=== PATIENT | female | born 1955 | race Caucasian/White ===

== ENCOUNTER 2016-08-20 20:50 | Inpatient (IN) | payer MEDICAID ==
[~2016-08-20] VITALS: Ht 165.1 cm; Wt 70.3 kg
--- NOTE | ~2016-08-20 | PRO ---
PATIENT:ARPITA MORGAN MEDICAL RECORD: [id number] : 53 LOCATION:[id number] ADMISSION DATE: 08/20/16 PROCEDURE PERFORMED BY: MEENA REESE MD DATE OF PROCEDURE: 08/24/2016 This is a summary of progress notes from 08/22/2016, 08/23/2016 and 08/24/2016. The patient has a right-sided pneumothorax. I have placed her water seal. There has been no significant increase in crepitus involving the right chest wall. No increasing shortness of breath. She is still wearing her oxygen. I have reviewed her chest x-ray. Today's chest x-ray, I think looks a little better than ones previously. There is a tiny apical pneumothorax. There is no air leak. The patient is not short of breath. Only, there is a tiny amount of subcutaneous crepitus on her chest examination. The subcutaneous emphysema persists on her chest x-ray, however. Palpation along the right costal margin aggravates. Nothing alleviates. Symptoms are mild. This is a progress note addendum. For the typed portion of the progress note, please see the chart. This included the past medical and surgical history, allergies, social history as well as current medications. REVIEW OF SYSTEMS: Negative for nausea, vomiting, fever, chills. Mild dyspnea. Review of systems is negative other than as is described above. PHYSICAL EXAMINATION: GENERAL: The patient does not appear acutely ill. She does not appear chronically ill. VITAL SIGNS: Reviewed. HEAD: External ears appear normal. EYES: Extraocular movements are intact. NECK: Trachea is midline. CHEST: No intercostal retractions. PULMONARY: Mildly labored. No stridor. EXTREMITIES: No peripheral cyanosis. INTEGUMENT: No rash, no ulcerations. PSYCHIATRIC: Normal affect. No psychosis. NEUROLOGIC: Nonfocal, no lethargy. The patient answers questions appropriately. BACK: Mild thoracic kyphosis. LYMPHATIC: No lymphangitic streaking of the exposed extremities. IMPRESSION: Slow improvement in her chest x-ray and physical examination over the course of the last 3 days. PLAN: I will continue her water seal. I will get some supplies to the bedside for chest tube removal, hopefully tomorrow. I discussed this case with Dr. Maximo De La Garza by phone tonight. TRANSINT:[id number] Voice Confirmation ID: [id number] DOCUMENT ID: [id number] PROCEDURE NOTE [id number] ARPITA MORGAN ROBERT MD CC: [id number] DICTATION DATE: 08/24/161754 DAIRY FARMWORKER: 08/25/16 0329 ADM IN [place] [id number] [place] [id number]
--- NOTE | ~2016-08-20 | OP ---
PATIENT NAME: ARPITA MORGAN MEDICAL RECORD: [id number] :53 LOCATION:[id number] ADMISSION DATE:08/20/16 SURGEON: ESPINOZA KAY MD DATE OF OPERATION: 08/21/2016 PREOPERATIVE DIAGNOSES: 1. Spontaneous right pneumothorax. 2. Tobacco dependence syndrome. POSTOPERATIVE DIAGNOSES: 1. Spontaneous right pneumothorax. 2. Tobacco dependence syndrome. PROCEDURE: A 20-Omani right chest tube placement. SURGEON: Espinoza Kay MD. REPORT OF PROCEDURE: The patient's right chest was prepped and draped in sterile fashion. A total of 5 mL of 1% lidocaine was infused into the subcutaneous tissue on the right lateral chest. A skin incision was made with an 11-blade in subcutaneous tract was formed using my finger. We got up to the patient's ribs. I was unable to determine which rib we were at due to the large body habitus, but had to be around the seventh to eighth intercostal space. A 20-Omani chest tube with introducer was placed between the ribs into the chest cavity and there was a quick return of air. The chest tube was then sutured into place with 0 silk and dressed appropriately. This chest tube was then placed to suction. COMPLICATIONS: None. CONDITION: Stable. ANESTHESIA: Local. BLOOD LOSS: Minimal. Procedure done at the bedside. TRANSINT:[id number] Voice Confirmation ID: [id number] DOCUMENT ID: [id number] ESPINOZA KAY MD CC: [id number] DICTATION DATE: 08/21/16 142 CARTOGRAPHIC ENGINEER: 08/22/16 0143 ADM IN [facility] [address] [place] [address]
[2016-08-20 22:26] LABS: BASOPHILS 0.2 % (0-2); EOSINOPHILS 1.4 % (0-7); HEMATOCRIT 41.9 % (36.0-48.0); HEMOGLOBIN 14.6 g/dL (12-16); IMMATURE GRANULOCYTES 0.3 % (0-5); LYMPHOCYTES 25.6 % (15-50); MCH 32.2 pg (26.0-34.0); MCHC 34.8 g/dL (31.0-37.0); MCV 92.3 fL (80.0-100.0); MEAN PLATELET VOLUME 9.5 fL (7.4-10.4); MONOCYTES 5.3 % (2-11); NEUTROPHILS 67.2 % (40-80); PLATELET COUNT 268 10x3/uL (130-400); RBC 4.54 10x6/uL (4.00-5.40); RDW 12.6 % (11.5-14.5); WBC 11.8 10x3/uL (4.8-10.8)
[2016-08-20 22:39] LABS: ALBUMIN 3.8 g/dL (3.4-5.0); ALKALINE PHOSPHATASE 103 U/L (46-116); ALT (SGPT) 22 U/L (10-68); CALC OSMOLALITY 267 mosm/kg (275-300); CALCIUM 8.8 mg/dL (8.5-10.1); CARBON DIOXIDE 29.7 mmol/L (21.0-32.0); CHLORIDE - SERUM 96 mmol/L (98-107); CREATININE - SERUM 1.1 mg/dL (0.6-1.3); GLUCOSE 146 mg/dL (74-106); PRO BNP 341 pg/mL (0-125); PROTEIN - SERUM 7.1 g/dL (6.4-8.2); SODIUM 134 mmol/L (136-145); UREA NITROGEN 3 mg/dL (7-18); eGFR NON AFRICAN AMERICAN 53 mL/min (90-120)
[2016-08-20 22:46] LABS: POTASSIUM - SERUM 2.1 mmol/L (3.5-5.1); TROPONIN-I < 0.017 ng/mL (0.000-0.060)
[2016-08-21] MEDS ORDERED: ASPIRIN325 MG PO (01:35)
[2016-08-21 01:36] VITALS: BP 134/70; BMI 25.8
[2016-08-21 04:00] VITALS: BP 134/70
--- NOTE | 2016-08-21 07:15 | NUR ---
REPORT RECEIVED FROM DIRECTOR GLOBAL INTELLIGENCE NURSE. CALL LIGHT IN REACH.
--- NOTE | 2016-08-21 07:15 | NUR ---
REPORT RECEIVED FROM CONTACT LENS POLISHER NURSE. CALL LIGHT IN REACH.
[2016-08-21 08:13] VITALS: BP 138/65
--- NOTE | 2016-08-21 09:00 | NUR ---
PATIENT IS AWAKE, ALERT AND ORIENTED X'S 4. SITTING UP IN THE BED. DENIES NEEDS AT THIS TIME.
--- NOTE | 2016-08-21 09:12 | NUR ---
ASSESSMENT COMPLETED. AM MEDS ADMINISTERED. DR. KAY IN ROOM. CALL LIGHT IN REACH. WILL CONTINUE WITH PLAN OF CARE.
--- NOTE | 2016-08-21 09:35 | NUR ---
SCDs APPLIED TO BLE PER INSPECTION CLERK.
--- NOTE | 2016-08-21 10:37 | NUR ---
RIGHT CHEST TUBE IN PER DR. KAY. ANDRES IVP. RADIOLOGY IN ROOM TO MICHAEL XRAY
[2016-08-21 11:58] VITALS: BP 122/56
[2016-08-21 12:44] VITALS: Ht 165.1 cm; Wt 70.3 kg
--- NOTE | 2016-08-21 13:16 | NUR ---
Patient Name: ARPITA HAYWARD Admission Status: ER Accout number: [id number] Admission Date: 08-20-2016 : 1955 Admission Diagnosis:PNEUMOTHORAX, UNSPECIFIED Attending: CARMEN Current LOS: 1 Anticipated DC Date: Planned Disposition: Home Primary Insurance: [employer] Discharge Planning Comments: CM met with patient and (Luis M) [phone] to assess discharge planning/needs. Patient states discharge plan is to return home with her Luis M. States home environment is safe. States she has a ramp with rail. She denies any DME needs and states she is independent with her ADL's. At this time she denies any needs for HH. CM will continue to follow and assist as needed with discharge planning/needs. PCP: Wilfred Pharmacy: [facility] Luis M Hayward (Spouse) [phone] Dry Wall Sprayer: Kimberly Stoll * Is the patient Alert and Oriented? Yes 0 * How many steps to enter\exit or inside your home? 0 0 * PCP Wilfred 0 * Pharmacy [facility] 0 * Preadmission Environment Home with Family 0 * ADLs Independent 0 * Equipment None 0 * List name and contact numbers for known caregivers / representatives who currently or will assist patient after discharge: Luis M Hayward [phone] * Community resources currently utilized None 0 * Additional services required to return to the preadmission environment? No 0 * Can the patient safely return to the preadmission environment? Yes 0 * Has this patient been hospitalized within the prior 30 days at any hospital? No 0 Grand Total: 0
--- NOTE | 2016-08-21 15:23 | NUR ---
PAGED TO NOTIFY HIM OF POTASSIUM LEVEL
[2016-08-21 16:10] VITALS: BP 121/68
--- NOTE | 2016-08-21 17:00 | NUR ---
ASSUMED CARE OF PATIENT. AAO TIMES 4 SITTING UP ON BED, CHEST TUBE RT. LAT CHEST TO 20 CM SUCTION WITH NO APPARANT AIR LEAKS NOTED. DENIES NEEDS OR PAIN. BED LOW CL IN REACH. WILL CPOC.
--- NOTE | 2016-08-21 19:15 | NUR ---
ASSESSMENT COMPLETED, CHEST TUBE TO R SIDE AT 20CM, SCD'S IN PLACE, IV TO L FA INFUSING WITH EASE, NO DISTRESS NOTED, DENIES NEEDS, SR'S UP X2, CL IN REACH, WILL MONITOR
[2016-08-21 20:00] VITALS: BP 122/51
--- NOTE | 2016-08-21 20:08 | NUR ---
TORADOL GIVEN PER MAR, RONAL WELL, DENIES NEEDS, CL IN REACH
--- NOTE | 2016-08-21 22:52 | NUR ---
LYING IN BED TALKING ON PHONE, NO NEEDS NOTED, FALL PRECAUTIONS IN PLACE, CL IN REACH
[2016-08-22] VITALS: BP 114/66
[2016-08-22 04:00] VITALS: BP 116/67
[2016-08-22 05:39] LABS: BASOPHILS 0.1 % (0-2); EOSINOPHILS 1.6 % (0-7); HEMATOCRIT 39.8 % (36.0-48.0); HEMOGLOBIN 13.5 g/dL (12-16); IMMATURE GRANULOCYTES 0.2 % (0-5); LYMPHOCYTES 24.6 % (15-50); MCH 31.9 pg (26.0-34.0); MCHC 33.9 g/dL (31.0-37.0); MCV 94.1 fL (80.0-100.0); MEAN PLATELET VOLUME 9.9 fL (7.4-10.4); MONOCYTES 4.4 % (2-11); NEUTROPHILS 69.1 % (40-80); PLATELET COUNT 232 10x3/uL (130-400); RBC 4.23 10x6/uL (4.00-5.40); RDW 12.7 % (11.5-14.5); WBC 9.9 10x3/uL (4.8-10.8)
[2016-08-22 06:09] LABS: ANION GAP 11.6 mmol/L (8-16); CALCIUM 8.5 mg/dL (8.5-10.1); CARBON DIOXIDE 27.3 mmol/L (21.0-32.0); CREATININE - SERUM 1.1 mg/dL (0.6-1.3)
[2016-08-22 06:11] LABS: POTASSIUM - SERUM 2.9 mmol/L (3.5-5.1)
--- NOTE | 2016-08-22 07:30 | NUR ---
AWAKE AND ALERT. ORIENTED X3. NO C/O AT THIS TIME. LUNGS ARE CLEAR EXCEPT INSPIRATORY WHEEZES NOTED IN RIGHT UPPER LOBE AT THIS TIME. CHEST TUBE TO RIGHT CHEST IS PATENT WITH SCANT SEROUS DRAINAGE NOTED. SL TO LEFT FOREARM PATEENT WITHOUT REDNESS AT ISNERTION SITE. SKIN INTACT WITHOUT REDNESS EXCEPT INSERTION SITE FOR CT AND OLD SITE TO RIGHT CLAVICAL AREA WHICH HAS A DRY INTACT DRESSING IN PLACE.
[2016-08-22 08:14] VITALS: BP 126/69
--- NOTE | 2016-08-22 11:00 | NUR ---
UP TO SINK PERFORMING ADL'S PER SELF. LINENS CHANGED PER STAFF.
[2016-08-22 12:05] VITALS: BP 129/64
--- NOTE | 2016-08-22 15:35 | NUR ---
RESTING QUIETLY IN BED WITH EYES CLOSED. DENIES NEEDS.
[2016-08-22 15:57] VITALS: BP 151/64
--- NOTE | 2016-08-22 18:11 | NUR ---
REPORTS NO FURTHER C/O NAUSEA AFTER ZOFRAN GIVEN. ATE ALMOST HALF OF SUPPER. DENIES NEEDS. NO CHANGES NOTED. VERY LITTLE OUTPUT FROM CT TODAY.
--- NOTE | 2016-08-22 19:40 | NUR ---
PT SITTING UP IN CHAIR, ASSESSMENT COMPLETED, CHEST TUBE CANISTER BELOW INSERTION LEVEL, NC IN PLACE, NO ACUTE DISTRESS NOTED, DENIES NEEDS AT THIS TIME, CL IN REACH, WILL MONITOR
[2016-08-22 20:00] VITALS: BP 140/64
--- NOTE | 2016-08-22 20:41 | NUR ---
TORADOL GIVEN PER MAR, RONAL WELL, DENIES NEEDS, CL IN REACH
--- NOTE | 2016-08-22 21:50 | NUR ---
PT STILL UP IN CHAIR, DENIES NEEDS, CL IN REACH
--- NOTE | 2016-08-22 23:31 | NUR ---
AMBULATING IN [place]DO, NO DISTRESS NOTED, DENIES NEEDS, WILL MONITOR
[2016-08-23] VITALS: BP 128/66
[2016-08-23 04:00] VITALS: BP 118/71
[2016-08-23 07:47] LABS: BASOPHILS 0.1 % (0-2); EOSINOPHILS 2.8 % (0-7); HEMATOCRIT 35.2 % (36.0-48.0); HEMOGLOBIN 12.5 g/dL (12-16); IMMATURE GRANULOCYTES 0.1 % (0-5); LYMPHOCYTES 29.2 % (15-50); MCH 32.4 pg (26.0-34.0); MCHC 35.5 g/dL (31.0-37.0); MCV 91.2 fL (80.0-100.0); MEAN PLATELET VOLUME 9.3 fL (7.4-10.4); MONOCYTES 6.6 % (2-11); NEUTROPHILS 61.2 % (40-80); PLATELET COUNT 181 10x3/uL (130-400); RBC 3.86 10x6/uL (4.00-5.40); RDW 12.4 % (11.5-14.5); WBC 7.1 10x3/uL (4.8-10.8)
--- NOTE | 2016-08-23 07:53 | NUR ---
AWAKE AND ALERT. ORIENTED X3. NO C/O THIS AM. LUNGS ARE CLEAR BUT DIMINISHED ON RIGHT SIDE. DRESSING TO CHEST TUBE ON RIGHT IS DRY AND INTACT. CHEST TUBE IS PATENT WITH SEROUS DRAINAGE NOTED. SL TO LEFT WRIST AREA PATENT WTIHOUT REDNESS AT INSERTION SITE. DENIES NEEDS.
[2016-08-23 08:01] LABS: CALCIUM 8.1 mg/dL (8.5-10.1); CARBON DIOXIDE 29.8 mmol/L (21.0-32.0)
[2016-08-23 08:03] LABS: POTASSIUM - SERUM 2.8 mmol/L (3.5-5.1)
[2016-08-23 09:29] VITALS: BP 127/66
--- NOTE | 2016-08-23 10:15 | NUR ---
C/O SOME NAUSEA WITH POTASSIUM UP. GIVEN 4MG ZOFRAN SLOW IVP FOR SAME. WILL MONITOR.
[2016-08-23 12:46] VITALS: BP 123/62
--- NOTE | 2016-08-23 15:30 | NUR ---
IV TO LEFT FOREARM RED. C/O PAIN WITH POTASSIUM INFUSION. RESITED TO LEFT FOREARM AFTER ONE ATTEMPT WITH 22G. OLD IV D/C WITH CATHETER INTACT. WARM MOIST HEAT APPLIED TO AREA.
[2016-08-23 16:29] VITALS: BP 118/61
--- NOTE | 2016-08-23 18:10 | NUR ---
ATE ABOUT HALF OF SUPPER TRAY BUT HAD FOOD FROM OUTSIDE IN ROOM. DENIES NEEDS. NO CHANGES NOTED
[2016-08-23 19:20] VITALS: BP 134/63
--- NOTE | 2016-08-23 19:20 | NUR ---
PT SITTING UP IN RECLINER, CHEST TUBE DRAINING TO GRAVITY, ASSESSMENT COMPLETED, NO ACUTE DISTRESS NOTED, DENIES NEEDS AT THIS TIME, CL IN REACH, WILL MONITOR
--- NOTE | 2016-08-23 20:39 | NUR ---
TORADOL GIVEN PER MAR, RONAL WELL, DENIES OTHER NEEDS, CL IN REACH
--- NOTE | 2016-08-23 21:50 | NUR ---
AMBULATING IN SEG[place]DO, NO DISTRESS NOTED, REMINED TO KEEP CANISTER BELOW INSERTION SITE, UNDERSTANDING VOICED
--- NOTE | 2016-08-23 23:42 | NUR ---
RESTING WITH EYES CLOSED, NO DISTRESS NOTED, SR UP, CL IN REACH
--- NOTE | 2016-08-24 01:20 | NUR ---
CONTINUES TO REST WITH EYES CLOSED, NO DISTRESS NOTED, CL IN REACH
[2016-08-24 06:20] VITALS: BP 110/59
--- NOTE | 2016-08-24 07:10 | NUR ---
PT REC'D FROM [facility]. RESTING IN BED WITH LAB AT [facility] DRAWING AM LABS. AAOX4. CHEST TUBE TO GRAVITY WITH APPROXIMATELY 35 CC'S OF SEROSANGUINOUS DRAINAGE. INSERTION SITE OF CT FREE OF REDNESS AND SWELLING AND DRESSING CDI. PIV TO L FA FREE OF REDNESS AND SWELLING. BED LOW, CALL LIGHT IN REACH, DENIES NEEDS. CPOC.
[2016-08-24 08:04] LABS: BASOPHILS 0.1 % (0-2); EOSINOPHILS 3.3 % (0-7); HEMATOCRIT 37.9 % (36.0-48.0); IMMATURE GRANULOCYTES 0.1 % (0-5); LYMPHOCYTES 23.3 % (15-50); MCH 31.9 pg (26.0-34.0); MCHC 34.3 g/dL (31.0-37.0); MCV 92.9 fL (80.0-100.0); MEAN PLATELET VOLUME 9.5 fL (7.4-10.4); MONOCYTES 6.4 % (2-11); NEUTROPHILS 66.8 % (40-80); RBC 4.08 10x6/uL (4.00-5.40); RDW 12.5 % (11.5-14.5); WBC 7.5 10x3/uL (4.8-10.8)
[2016-08-24 08:15] LABS: PLATELET COUNT 221 10x3/uL (130-400)
[2016-08-24 08:26] LABS: ALBUMIN 3.2 g/dL (3.4-5.0); ANION GAP 11.1 mmol/L (8-16); BILIRUBIN - TOTAL 0.44 mg/dL (0.2-1.3); CALCIUM 8.7 mg/dL (8.5-10.1); CARBON DIOXIDE 29.4 mmol/L (21.0-32.0); PROTEIN - SERUM 6.2 g/dL (6.4-8.2)
[2016-08-24 08:29] LABS: POTASSIUM - SERUM 3.5 mmol/L (3.5-5.1)
--- NOTE | 2016-08-24 08:50 | NUR ---
MORNING MEDS PASSED. AT THIS TIME. PO POTASSIUM GIVEN PER 3.5 POTASSIUM LEVEL. BED LOW, CALL LIGHT IN REACH, DENIES NEEDS. CPOC.
[2016-08-24 10:15] VITALS: BP 130/61
[2016-08-24 12:54] VITALS: BP 128/60
--- NOTE | 2016-08-24 13:08 | NUR ---
ALERTED BY DARIANA MINER, THAT PT WAS HAVING A NOSE BLEED. WHEN I GOT THERE THE BLEEDING HAD STOPPED COMPLETELY AND PT HAD ALREADY CLEANED HERSELF UP. THERE WAS A SMALL AMOUNT OF TISSUES IN TRASH CAN WITH A MILD AMOUNT OF BLOOD ON IT. PT DOES STATE, "SOMETIMES I LIKE WHEN IT HAPPENS BECAUSE IT CLEARS ME OUT AND OPENS EVERYTHING UP SO I CAN BREATHE BETTER." SITTING UP ON SIDE OF BED AT THIS TIME. BED LOW, CALL LIGHT IN REACH, DENIES NEEDS. CPOC.
[2016-08-24 16:53] VITALS: BP 120/66
--- NOTE | 2016-08-24 19:20 | NUR ---
RECIEVED SHIFT REPORT. PT IS LYING IN BED. ALERT AND ORIENTED AND ABLE TO VERBALIZE NEEDS. IV IS PATENT AND SALINE LOC AT THIS TIME. PT IS AMBULATORY BUT WAS INSTRUCTED TO CALL FOR ANY ASSISTANCE NEEDED. O2 @ 2 PER NASAL CANNULA PRN. CHEST TUBE NOTED TO RIGHT SIDE C/D/I. PT STATES PAIN IS 5/10. PT REFUSES SCD'S AT THIS TIME. NO NEEDS ARE VERBALIZED AT THIS TIME. WILL CONTINUE TO MONITOR. SIDE RAILS ARE UP X 2. BED IS IN LOWEST POSITION. CALL LIGHT IS WITHIN REACH.
[2016-08-24 20:00] VITALS: BP 114/66
--- NOTE | 2016-08-24 20:20 | NUR ---
SHIFT ASSESSMENT COMPLETED. PT STATUS REMAINS UNCHANGED FROM PREVIOUS. NO NEEDS ARE VOICED. WILL MONITOR. SIDE RAILS X 2. BED LOW. CALL LIGHT IN REACH.
[2016-08-25] VITALS: BP 124/69
[2016-08-25 04:00] VITALS: BP 120/94
--- NOTE | 2016-08-25 07:25 | NUR ---
PT AOX4 RESP EVEN AND NONLABORED PT DENIES NEEDS AT THIS TIME IV TO LEFT FOREARM PATENT AND INTACT CHEST TUBE TO RIGHT CHEST WALL PATENT AND FUNCTIONING PROPERLY AT THIS TIME. PT HERE FOR PNUEMOTHORAX. BED AT LOWEST SETTING CALL LIGHT WITHIN REACH SRX2 WILL CONTINUE TO MONITOR
--- NOTE | 2016-08-25 07:30 | NUR ---
PT REC'D FROM [facility]. RESTING IN BED WITH EYES CLOSED. EASILY AROUSUED. AAOX4. NO COMPLAINTS OF PAIN. CHEST TUBE TO R FLANK TO WATER SEAL. DRESSING TO INSERTION SITE FREE OF REDNESS AND SWELLING. APPROXIMATELY 75CC'S OF SEROUS FLUID IN COLLECTION CHAMBER. BED LOW, CALL LIGHT IN REACH, DENIES NEEDS. CPOC.
[2016-08-25 07:54] VITALS: BP 138/71
--- NOTE | 2016-08-25 08:58 | NUR ---
PRN TYLENOL ADMINISTERED PER PT COMPLAINTS OF 10/10 CHEST PAIN AT INSERTION SITE OF CHEST TUBE. WILL REASSESS.
--- NOTE | 2016-08-25 09:16 | NUR ---
DR. KAY AT BEDSIDE TO PULL CHEST TUBE. TUBE PULLED AND PETROLEUM GUAZE, 4X4'S, AND FOAM TAP APPLIED OVER INSERTION SITE. DRESSING TO R UPPER CHEST REMOVED AT THIS TIME. BED LOW, CALL LIGHT IN REACH, DENIES NEEDS. CPOC.
--- NOTE | 2016-08-25 09:50 | NUR ---
PT UP AMBULATING THROUGH HALLS UNASSISTED.
[2016-08-25 12:03] VITALS: BP 128/67
--- NOTE | 2016-08-25 13:05 | NUR ---
DISCUSSED DC INSTRUCTIONS AND FOLLOW UP APPOINTMENTS WITH PT. NO QUESTIONS OR CONCERNS VOICED AT THIS TIME. IV TO L FOREARM DC'D WITH CATHETER INTACT. ESCORTED OUT VIA WC.
--- NOTE | 2016-08-25 14:52 | NUR ---
CM NOTE: LATE ENTRY, PT DISCHARGED HOME TODAY, DRIVING HER HOME. DISCHARGED HOME WITHOUT ANY NEEDS SHARI MINER RN
== END 2016-08-25 13:05 | disposition home or self-care (01) | DRG 201 ==
LOC: D.ER 20:50 → D.ICU 23:50 → D.MS 23:50
PROVIDERS: Emergency Medicine; ADMIT Surgery
PROC: 0W9930Z Drainage of Right Pleural Cavity with Drainage Device, Percutaneous Approach (ICD-10-PCS; principal; 2016-08-20)
PROC: 0W9930Z Drainage of Right Pleural Cavity with Drainage Device, Percutaneous Approach (ICD-10-PCS; 2016-08-21)
DX: J93.83 Other pneumothorax (principal); K21.9 Gastro-esophageal reflux disease without esophagitis; F17.200 Nicotine dependence, unspecified, uncomplicated; J44.9 Chronic obstructive pulmonary disease, unspecified; E87.6 Hypokalemia

== ENCOUNTER 2016-10-18 11:56 | Emergency (ER) | payer MEDICAID ==
[2016-08-21 12:44] VITALS: BMI 25.7
[~2016-10-18 11:56] MED LIST: ASPIRIN325 MG PO
== END 2016-10-18 14:20 | disposition home or self-care (01) ==
LOC: D.ER 11:56
DX: I10 Essential (primary) hypertension (principal); F41.9 Anxiety disorder, unspecified; R42 Dizziness and giddiness; F17.200 Nicotine dependence, unspecified, uncomplicated

== ENCOUNTER 2016-11-16 11:43 | Emergency (ER) | payer MEDICAID ==
[2016-08-21 12:44] VITALS: BMI 25.7
[2016-11-16 13:23] LABS: BASOPHILS 0.2 % (0-2); EOSINOPHILS 0.7 % (0-7); HEMATOCRIT 45.1 % (36.0-48.0); HEMOGLOBIN 15.5 g/dL (12-16); IMMATURE GRANULOCYTES 0.2 % (0-5); LYMPHOCYTES 25.4 % (15-50); MCH 32.4 pg (26.0-34.0); MCHC 34.4 g/dL (31.0-37.0); MCV 94.2 fL (80.0-100.0); MEAN PLATELET VOLUME 9.8 fL (7.4-10.4); MONOCYTES 6.7 % (2-11); NEUTROPHILS 66.8 % (40-80); RBC 4.79 10x6/uL (4.00-5.40); RDW 12.8 % (11.5-14.5); WBC 9.5 10x3/uL (4.8-10.8)
[2016-11-16 13:24] LABS: PLATELET COUNT 277 10x3/uL (130-400)
[2016-11-16 13:34] LABS: ALBUMIN 3.8 g/dL (3.4-5.0); ALKALINE PHOSPHATASE 91 U/L (46-116); ALT (SGPT) 24 U/L (10-68); BILIRUBIN - TOTAL 0.26 mg/dL (0.2-1.3); CALC OSMOLALITY 274 mosm/kg (275-300); CALCIUM 8.9 mg/dL (8.5-10.1); CARBON DIOXIDE 29.3 mmol/L (21.0-32.0); CHLORIDE - SERUM 101 mmol/L (98-107); GLUCOSE 102 mg/dL (74-106); PROTEIN - SERUM 7.4 g/dL (6.4-8.2); SODIUM 139 mmol/L (136-145); UREA NITROGEN 4 mg/dL (7-18); eGFR NON AFRICAN AMERICAN 59 mL/min (90-120)
[2016-11-16 13:43] LABS: CKMB 0.1 U/L (0.0-3.6); CREATINE KINASE 66 UL (21-215); MAGNESIUM - SERUM 2.2 mg/dL (1.8-2.4)
[2016-11-16 13:44] LABS: TROPONIN-I < 0.017 ng/mL (0.000-0.060)
== END 2016-11-16 14:53 | disposition home or self-care (01) ==
LOC: D.ER 11:43
PROVIDERS: Family Medicine
DX: R00.2 Palpitations (principal); E87.6 Hypokalemia; F41.9 Anxiety disorder, unspecified; I10 Essential (primary) hypertension; R11.0 Nausea; R19.7 Diarrhea, unspecified; F17.200 Nicotine dependence, unspecified, uncomplicated

== ENCOUNTER 2016-12-28 08:51 | Day surgery (SDC) | payer MEDICAID ==
[2016-12-28 09:39] VITALS: BP 114/69; BMI 25.8
[2016-12-28 09:55] LABS: HEMATOCRIT 45.1 % (36.0-48.0); HEMOGLOBIN 15.7 g/dL (12-16); MCH 33.3 pg (26.0-34.0); MCHC 34.8 g/dL (31.0-37.0); MCV 95.6 fL (80.0-100.0); MEAN PLATELET VOLUME 9.9 fL (7.4-10.4); RBC 4.72 10x6/uL (4.00-5.40); RDW 12.9 % (11.5-14.5); WBC 7.5 10x3/uL (4.8-10.8)
--- NOTE | 2016-12-28 12:20 | NUR ---
IV D/C'D CATH INTACT. PT UP AND ABOUT IN ROOM, ALERT. D/C INSTRUCTIONS EXPLAINED TO PT. VOICED UNDERSTANDING. COPIES OF ALL GIVEN TO PT.
--- NOTE | 2016-12-28 12:31 | NUR ---
D/C'D HOME VIA W/C TO PRIVATE CAR.
--- NOTE | 2016-12-29 07:47 | OP ---
PATIENT NAME: ARPITA MORGAN MEDICAL RECORD: [id number] :53 LOCATION:[facility] ADMISSION DATE: SURGEON: ANN HODGE DO DATE OF OPERATION: 12/28/2016 PROCEDURE: Colonoscopy with biopsy and polypectomy. INDICATIONS FOR PROCEDURE: Screening for colorectal cancer. SCOPE: Olympus video pediatric colonoscope. MEDICATIONS: Propofol 300 mg IV per anesthesia. WITHDRAWAL TIME: 22 minutes. ESTIMATED BLOOD LOSS: Minimal. COMPLICATIONS: None. FINDINGS: Informed consent was given. The patient was made comfortable with the above medication. After reaching an adequate level of sedation by slow IV push, the patient was placed on her left side. A digital rectal examination was performed and was normal. The endoscope was then advanced under direct visualization through the rectum to the cecum with visualization of the appendiceal orifice and ileocecal valve. The scope was slowly withdrawn and mucosa was carefully examined. Prep quality was fair. There was evidence of very mild diverticulosis involving the sigmoid colon. There were 5 polyps visualized on today's examination. The first was a benign appearing sessile polyp located in the transverse colon and measuring approximately 3 mm in diameter. It was removed using cold forceps in 1 piece and completely retrieved. In the rectum, there were four separate benign appearing sessile lesions ranging in size from 3 mm to 8 mm in diameter. They were all removed using hot forceps in 1 piece and completely retrieved. Any remaining tissue was fulgurated. Retroflexion was performed in the rectum with visualization of small nonbleeding internal hemorrhoids. Scope was then withdrawn from the patient. The patient tolerated the procedure well and there were no complications. IMPRESSION: 1. Mild diverticulosis of the sigmoid colon. 2. Small nonbleeding internal hemorrhoids. 3. Multiple polyps as described above, removed using cold forceps and hot forceps. PLAN AND RECOMMENDATIONS: 1. Discharge home when recovery parameters are met. 2. Follow up biopsy specimen results. 3. High fiber diet. 4. Continue current medications. 5. Recall colonoscopy in 2-3 years based on the number and types of polyps removed as well as the fact that this was not an ideal preparation. TRANSINT:[id number] Voice Confirmation ID: [id number] DOCUMENT ID: [id number] OPERATIVE REPORT [id number] ARPITA MORGAN ANN HODGE DO at 0747 CC: [id number] DICTATION DATE: 12/28/16 1132 FORESTRY AIDE: 12/28/16 1155 [facility] 12/28/16 [place] [id number] [place] [id number]
== END 2016-12-28 12:34 | disposition home or self-care (01) ==
LOC: D.OPS 08:51
PROVIDERS: Anesthesiology
DX: Z12.11 Encounter for screening for malignant neoplasm of colon (principal); F17.200 Nicotine dependence, unspecified, uncomplicated; K21.9 Gastro-esophageal reflux disease without esophagitis; K63.5 Polyp of colon; K62.1 Rectal polyp; K64.8 Other hemorrhoids; K57.30 Diverticulosis of large intestine without perforation or abscess without bleeding; Z01.812 Encounter for preprocedural laboratory examination

== ENCOUNTER 2016-12-31 06:12 | Inpatient (IN) | payer MEDICAID ==
[2016-12-31] VITALS (10 sets, daily range): BP systolic 101–134; BP diastolic 59–66; BMI 25.8
--- NOTE | ~2016-12-31 | HEMODYNAMI ---
PATIENT:ARPITA MORGAN MEDICAL RECORD: [id number] : 53 LOCATION:D. D.2126 ADMISSION DATE: 12/31/16 Generatedon:12/31/20169:18 Patient name: ARPITA MORGAN Patient #: [id number] SSN: D OB: 1955 Date of study: 12/31/2016 Page: Of Hemodynamic Procedure Report Patient Data Patient Demographics Procedure consent was obtained First Name: ARPITA Gender: Female Last Name: CATHY : 1955 Patient #: [id number] Age: 61 year(s) Race: Unknown Additional ID: [id number] Contact details [address]: [address] [place] [address] State: [place] City: [facility] Zip code: [address] Admission Admission Data Admission Date: 12/31/2016 Admission Time: 6:12 Procedure Procedure Types Cath Procedure Peripheral Cath Diagnostic Procedure Miscellaneous Procedure Description Procedure Date Procedure Date: 12/31/2016 Procedure Start Time: 8:49 Procedure Staff Name Function Fatimah Pineda RT Scrub Wendy Cartwright RN Nurse Tyrell Martins RT Monitor Randal Junior MD Performing Physician Procedure Data Cath Procedure Fluoroscopy Diagnostic fluoroscopy Total fluoroscopy Time: time: 0.07 min 0.07 min Diagnostic fluoroscopy Total fluoroscopy dose: 1 dose: 1 mGy mGy Procedure Medications Medication Administration Route Dosage Versed I.V. 1 mg Fentanyl I.V. 50 mcg Versed I.V. 1 mg Fentanyl I.V. 50 mcg Hemodynamics Rest Heart Rate: 116 (bpm) Snapshots Pre Cath Intra NCS Post Cath Vital Signs Time Heart Resp SPO2 NIBP Rhythm Pain Sedation Rate (ipm) (%) (mmHg) Status Level (bpm) 8:40:13 112 14 99 123/66(86) NSR 0 (11) 10(A) , No pain 8:44:19 113 17 99 119/72(86) NSR 0 (11) 10(A) , No pain 8:48:29 120 18 99 135/65(94) NSR 0 (11) 10(A) , No pain 8:52:45 116 15 98 122/66(83) NSR 0 (11) 10(A) , No pain 8:56:53 116 2 97 106/60(81) NSR 0 (11) 10(A) , No pain 9:01:03 114 17 99 101/50(79) NSR 0 (11) 10(A) , No pain 9:05:09 112 10 99 104/58(83) NSR 0 (11) 10(A) , No pain 9:09:10 109 20 98 101/67(95) NSR 0 (11) 10(A) , No pain 9:13:12 105 9 98 93/74(85) NSR 0 (11) 10(A) , No pain 9:18:01 100 Disturbed NSR 0 (11) 10(A) , No pain Medications Time Medication Route Dose Verified Delivered Reason Notes Effectivenes s by by 8:52:46 Versed I.V. 1 mg Randal Wendy for Vernon Cartwright RN sedation 8:53:03 Fentanyl I.V. 50 Randal Wendy for [facility] Vernon Cartwright RN sedation 8:54:30 Versed I.V. 1 mg Randal Wendy for Vernon Cartwright RN sedation 8:54:47 Fentanyl I.V. 50 Randal Wendy for [facility] Vernon Cartwright RN sedation Procedure Log Time Note 8:21:14 Tyrell Martins RT (R) (CV) sent for patient. Start room use. 8:21:30 Time tracking: Regular hours 8:21:34 Plan of Care:Hemodynamics will remain stable., Cardiac rhythm will remain stable., Comfort level will be maintained., Respiratory function will remain adequate., Patient/ family verbilizes understanding of procedure., Procedure tolerated without complication., Recovers from procedure without complications.. 8:21:39 Patient received from ED to IR Alert and oriented. Tansferred to table in Supine position. 8:21:40 Correct patient and procedure confirmed by team. 8:21:42 Signed procedure consent form obtained from patient. 8:21:43 ECG and BP/O2 sat monitors applied to patient. 8:21:44 Full Disclosure recording started 8:21:44 8:21:53 H&P Date Dictated: 12/31/2016 Emergent; H&P N/A, Within 30 days and on chart.. 8:21:54 Pre-procedure instructions explained to patient. 8:21:54 Pre-op teaching completed and patient verbalized understanding. 8:21:56 Family in waiting room. 8:21:57 Patient NPO since Midnight. 8:22:05 Use device set IR Diagnostic 8:22:06 Bag Decanter opened to sterile field. 8:22:07 Sterile Angiographic Pack opened to sterile field. 8:26:31 Is the patient allergic to Iodine/contrast media? No. 8:26:32 Is patient on blood thinner?No 8:26:35 Patient diabetic? No. 8:26:36 8:26:36 ----Pre-sedation anethsthesia assessment.---- 8:26:39 Previous problem with sedation/anesthesia? No ? 8:26:40 Snore? Yes 8:26:42 Sleep apnea? No 8:26:43 Deviated septum? No 8:26:44 Opens mouth fully? Yes 8:26:45 Sticks out tongue? Yes 8:26:47 Airway obstruction? No ? 8:26:49 Dentures? No ? 8:27:08 Patient pain scale 0/10 no pain. 8:27:48 IV patent on arrival in left forearm with 0.9% NaCl at [facility]. 8:39:13 Vital chart was started 8:39:39 Baseline sample Acquired. 8:39:44 Rhythm: sinus tachycardia 8:47:57 Right chest area was prepped with chlora-prep and draped in sterile fashion 8:47:58 Alarms reviewed by R. N. 8:47:59 Sharps counted by scrub and verified by R.N. 8:48:00 Physician arrived 8:48:01 --------ALL STOP TIME OUT------ 8:48:02 Final Timeout: patient, procedure, and site verified with staff and physician. All members of the team are in agreement. 8:48:14 Right chest site verified by team. 8:48:18 Physical assessment completed. ASA score P 2 - A patient with mild systemic disease as per Randal Junior MD. 8:48:23 Sedation plan: IV Moderate Sedation Versed, Fentanyl 8:49:15 Procedure started. 8:49:45 Local anesthetic to Chest area with Lidocaine 1% by Randal Junior MD.INITIAL ACCESS ONLY 8:49:49 Express Dry Seal Chest Drain opened to sterile field. 8:49:50 YUCH needle opened to sterile field. 8:49:50 Cook HANNAH .035 15CM guide wire opened to sterile field. 8:52:46 Versed 1 mg I.V. was administered by Wendy Cartwright RN; for sedation; 8:53:03 Fentanyl 50 mcg I.V. was administered by Wendy Cartwright RN; for sedation; 8:53:15 DILATOR, VESSEL 14/20 opened to sterile field. 8:53:15 DILATOR, VESSEL 10/20 opened to sterile field. 8:53:16 Cook MULTIPURPOSE 20FR drainage catheter opened to sterile field. 8:54:30 Versed 1 mg I.V. was administered by Wendy Cartwright RN; for sedation; 8:54:47 Fentanyl 50 mcg I.V. was administered by Wendy Cartwright RN; for sedation; 9:07:07 Procedure ended.(Physican Out) 9:08:04 Fluoroscopy time 00.07 minutes. 9:08:08 Fluoroscopy dose: 1 mGy 9:08:08 Flurop Dose total: 1 9:08:10 Sharps counted by scrub and verified by R.N. 9:08:11 Insertion/operative site no bleeding no hematoma. 9:08:16 Post-op/insertion site Right Chest area dressed using a 4 x 4 and Tegaderm. 9:08:24 Post Chest area:stable 9:08:30 Post-procedure physical assessment completed. ASA score P 2 - A patient with mild systemic disease as per Randal Junior MD. 9:08:33 Procedure and supply charges have been captured, reviewed, submitted and are correct. 9:17:19 Report given to [facility]. 9:17:23 Patient transfered to [facility] with Bed. 9:18:34 Vital chart was stopped Device Usage Item Name Manufacture Quantity Catalog Hospital Part Current Minimal Lot# / Number Charge Number Stock Stock Serial# Code Bag Decanter Microtek 1 [id number] [employer] Sterile Cardinal 1 [id number] 5 Angiographic Health Pack Express Dry Atrium 1 [id number] 5 [id number] Seal Chest Medical Drain Corporation YUCH needle Cook [employer] 1 [id number] 5 [id number] Cook HANNAH [employer] 1 [id number] [id number] [id number] 5 .035 15CM guide wire DILATOR, Cook [employer] 1 [id number] [id number] [id number] 5 [id number] VESSEL 14/20 DILATOR, Cook [employer] 1 [id number] 50920 [id number] 5 [id number] VESSEL 10/20 Cook [employer] 1 [id number] 5 MULTIPURPOSE 20FR drainage catheter Signature Audit [place] Stage Time Signature Unsigned Intra-Procedure 12/31/2016 Tyrell 9:18:30 AM Lakshmi RT (R) (CV) Signatures Monitor : Tyrell Signature : Lakshmi RT Date : Time : [address] [address]
[2016-12-31 08:07] LABS: BASOPHILS 0.2 % (0-2); EOSINOPHILS 2.8 % (0-7); HEMOGLOBIN 15.4 g/dL (12-16); IMMATURE GRANULOCYTES 0.2 % (0-5); MCH 33.1 pg (26.0-34.0); MCHC 34.2 g/dL (31.0-37.0); MCV 96.8 fL (80.0-100.0); MONOCYTES 5.1 % (2-11); NEUTROPHILS 48.7 % (40-80); PLATELET COUNT 310 10x3/uL (130-400); RBC 4.65 10x6/uL (4.00-5.40); RDW 12.9 % (11.5-14.5); WBC 9.6 10x3/uL (4.8-10.8)
[2016-12-31 08:10] LABS: ANION GAP 12.4 mmol/L (8-16); CALCIUM 9.3 mg/dL (8.5-10.1); CARBON DIOXIDE 28.3 mmol/L (21.0-32.0); CREATININE - SERUM 0.9 mg/dL (0.6-1.3); POTASSIUM - SERUM 3.7 mmol/L (3.5-5.1)
[2016-12-31 08:13] LABS: APTT 26.5 SECONDS (22.8-39.4); INR 0.9 (0.85-1.17)
--- NOTE | 2016-12-31 09:37 | NUR ---
TRANSFER FROM SPECIALS BY STRETCHER. OREINTED TO ROOM. CALL LIGHT IN REACH. WILL CONT. PLAN OF CARE.
--- NOTE | 2016-12-31 09:55 | NUR ---
RECIEVED PT FROM IR WITH CHEST TUBE TO RIGHT WITH 20 CM OF SUCTION. TO ROOM 2125. ADMIT ASSESMENT PER RN. NO DISTRESS NOTED.
[2016-12-31 14:07] LABS: HEMOGLOBIN A1C 5.4 % (4.8-6.0)
--- NOTE | 2016-12-31 17:57 | NUR ---
WITHOUT CHANGES OR DISTRESS NOTED AT THIS TIME. DENIES NEEDS
--- NOTE | 2016-12-31 20:14 | NUR ---
PT SITTING UP IN BED, AWAKE, ALERT, MILDLY AGITATED, ASKING FOR SOMETHING FOR HEARTBURN, STATING THE BARBEQUE SHE HAD FOR DINNER IS NOT AGREEING WITH HER. PT DID RECEIVE PROTONIX EARLIER THIS AFTERNOON, HOWEVER SHE STATES IT IS NOT HELPING. I SPOKE WITH NATHANIEL LUNDBERG, ROAD MARKER FOR [employer], WHO DID AUTHORIZE PRN TUMS. PT STATES THE TORADOL HELPS WITH HER PAIN FROM THE CHEST TUBE, BUT WEARS OFF RELATIVELY FAST. PT DENIES ANY OTHER NEEDS. WILL CONTINUE TO MONITOR CLOSELY. BED LOW, CALL LIGHT IN REACH, SIDE RAILS X 2, HOB 30 DEGREES.
[2017-01-01 05:06] VITALS: BP 124/76
[2017-01-01 06:58] LABS: BASOPHILS 0.2 % (0-2); EOSINOPHILS 1.4 % (0-7); HEMATOCRIT 37.8 % (36.0-48.0); HEMOGLOBIN 13.1 g/dL (12-16); IMMATURE GRANULOCYTES 0.1 % (0-5); LYMPHOCYTES 32.4 % (15-50); MCH 32.5 pg (26.0-34.0); MCHC 34.7 g/dL (31.0-37.0); MEAN PLATELET VOLUME 9.5 fL (7.4-10.4); MONOCYTES 5.3 % (2-11); NEUTROPHILS 60.6 % (40-80); RBC 4.03 10x6/uL (4.00-5.40); RDW 12.7 % (11.5-14.5); WBC 9.2 10x3/uL (4.8-10.8)
[2017-01-01 07:00] LABS: MCV 93.8 fL (80.0-100.0); PLATELET COUNT 222 10x3/uL (130-400)
--- NOTE | 2017-01-01 07:05 | NUR ---
AM ROUNDS- PT IN BED, RECEIVING UPDRAFT AT THIS TIME. RESP EVEN AND UNLABORED. LT AC SL. RT CHEST TUBE ON LOW CONT SUCTION SET AT 20. BED LOW AND WHEELS LOCKED, BEDSIDE RAILS X2, CALL LIGHT IN REACH, NAD NOTED, WILL CONTINUE TO MONITOR.
[2017-01-01 07:11] LABS: ANION GAP 12.2 mmol/L (8-16); CALCIUM 8.6 mg/dL (8.5-10.1); CARBON DIOXIDE 26.3 mmol/L (21.0-32.0); CREATININE - SERUM 0.9 mg/dL (0.6-1.3)
[2017-01-01 07:13] LABS: POTASSIUM - SERUM 2.5 mmol/L (3.5-5.1)
--- NOTE | 2017-01-01 07:43 | NUR ---
GAVE 20MEQ OF K FOR LOW K OF 2.5. PT REFUSED NICOTINE PATCH AFTER I HAD ALREADY OPENED IT. WASTED NICOTINE PATCH ON THE PYXIS. PT DENIES ANY NEEDS AT THIS TIME. CALL LIGHT IN REACH, NAD NOTED, WILL CONTINUE TO MONITOR.
[2017-01-01 08:46] VITALS: BP 119/69
--- NOTE | 2017-01-01 10:10 | NUR ---
PT WAS OFFERED SCDS AND REFUSED TO WEAR THEM AT THIS TIME.
--- NOTE | 2017-01-01 11:32 | NUR ---
PT IN BED, BLOCK TESTER AT BEDSIDE TO GET VITAL SIGNS. PT DENIES ANY NEEDS AT THIS TIME. RATIONAL FOR SCD'S EXPLAINED TO PT, PT REFUSED TO WEAR SCD'S AT THIS TIME. CALL LIGHT IN REACH, NAD NOTED, WILL CONTINUE TO MONITOR.
[2017-01-01 12:12] VITALS: BP 110/59
[2017-01-01 15:34] VITALS: BP 100/59
--- NOTE | 2017-01-01 19:28 | NUR ---
ALERT/AWAKE DENIES PAIN OR ANY NEEDS. IV IN L AC INTACT/PATENT. CHEST TUBE INTACT WITH SMALL AMT OF SEROSANGUINOUS DRAINAGE NOTED, SET UP TO LOW INTERMITTANT SUCTION. SINDYG C/D/I. TELEMETRY SHOWS 75 SR. HAS CALL LIGHT AND BEDSIDE TABLE WITH PERSONAL ITEMS IN REACH.
[2017-01-01 20:41] VITALS: BP 114/59
--- NOTE | 2017-01-02 00:30 | NUR ---
RESTING WITH EYES CLOSED. RR EVEN U/L. NO S/S OF PAIN OR DISCOMFORT. CL IN REACH.
[2017-01-02 01:47] VITALS: BP 100/55
[2017-01-02 05:44] VITALS: BP 109/55
--- NOTE | 2017-01-02 06:20 | NUR ---
IV INFILTRATED IN LEFT FA. REMOVED AND RESITED IV IN LEFT HAND 22G.
[2017-01-02 07:14] LABS: BASOPHILS 0.3 % (0-2); EOSINOPHILS 1.2 % (0-7); HEMATOCRIT 40.4 % (36.0-48.0); HEMOGLOBIN 13.7 g/dL (12-16); IMMATURE GRANULOCYTES 0.1 % (0-5); LYMPHOCYTES 35.9 % (15-50); MCH 33.1 pg (26.0-34.0); MCHC 33.9 g/dL (31.0-37.0); MCV 97.6 fL (80.0-100.0); MEAN PLATELET VOLUME 9.4 fL (7.4-10.4); MONOCYTES 7.2 % (2-11); NEUTROPHILS 55.3 % (40-80); PLATELET COUNT 242 10x3/uL (130-400); RBC 4.14 10x6/uL (4.00-5.40); RDW 13.3 % (11.5-14.5); WBC 7.5 10x3/uL (4.8-10.8)
[2017-01-02 07:33] LABS: CALC OSMOLALITY 274 mosm/kg (275-300); CALCIUM 8.9 mg/dL (8.5-10.1); CHLORIDE - SERUM 104 mmol/L (98-107); CREATININE - SERUM 0.8 mg/dL (0.6-1.3); GLUCOSE 84 mg/dL (74-106); POTASSIUM - SERUM 3.7 mmol/L (3.5-5.1); SODIUM 140 mmol/L (136-145); eGFR NON AFRICAN AMERICAN 77 mL/min (90-120)
[2017-01-02 07:34] LABS: UREA NITROGEN 5 mg/dL (7-18)
--- NOTE | 2017-01-02 07:39 | NUR ---
ASSESSMENT COMPLETED. TELEMERTY SHOWS ST AT 112. O2 AT 2L/M PER NC. LEFT HAND SL.RIGHT SIDED CHEST TUBE TO LOW INTERMITTEN SUCTION. UP AB LIBERTAD.ALERT AND ORIENTED. DENIES ANY NEEDS. CALL LIGHT IN REACH WITH SR UP. WILL MONITOR
[2017-01-02 08:19] VITALS: BP 116/68
--- NOTE | 2017-01-02 10:39 | NUR ---
UP ON SIDE OF BED. NO NEEDS VOICED. DR KAY HERE. NO NEW ORDERS. TELEMERTY SHOWS ST.
[2017-01-02 12:00] VITALS: BP 102/53
--- NOTE | 2017-01-02 15:50 | NUR ---
RESTING QUIETLY NAD NOTED
[2017-01-02 15:58] VITALS: BP 116/70
--- NOTE | 2017-01-02 18:36 | NUR ---
UP ON SIDE OF BED TALKING WITH FAMILY. DENIES ANY NEEDS. CALL LIGHT IN REACH
--- NOTE | 2017-01-02 19:58 | NUR ---
ALERT/AWAKE WATCHING TV. DENIES PAIN OR ANY NEEDS. IV IN L HAND INTACT SL. RT CHEST TUBE INTACT SET TO LIS. TELEMETRY SHOWS [address] ST. WILL CONT PLAN OF CARE.
--- NOTE | 2017-01-02 20:35 | NUR ---
ADMIN TORADOL PO PER REQUEST FOR C/O PAIN IN BACK, ARMS, LEGS DESCRIBED ACHING. REQUESTED LIGHTS OFF AND DOOR CLOSED TO SLEEP.
[2017-01-03] VITALS: BP 121/75
[2017-01-03 04:00] VITALS: BP 121/62
--- NOTE | 2017-01-03 06:30 | NUR ---
REQUESTED MUG FILLED WITH ICE. ADMIN SCHED MED. NO OTHER NEEDS VOICED.
[2017-01-03 06:50] LABS: BASOPHILS 0.3 % (0-2); EOSINOPHILS 2.4 % (0-7); HEMATOCRIT 38.5 % (36.0-48.0); HEMOGLOBIN 12.9 g/dL (12-16); IMMATURE GRANULOCYTES 0.1 % (0-5); LYMPHOCYTES 35.1 % (15-50); MCH 32.3 pg (26.0-34.0); MCHC 33.5 g/dL (31.0-37.0); MCV 96.3 fL (80.0-100.0); MEAN PLATELET VOLUME 9.5 fL (7.4-10.4); MONOCYTES 6.9 % (2-11); NEUTROPHILS 55.2 % (40-80); PLATELET COUNT 207 10x3/uL (130-400); RDW 13.1 % (11.5-14.5); WBC 7.4 10x3/uL (4.8-10.8)
[2017-01-03 07:07] LABS: ANION GAP 13.3 mmol/L (8-16); CALCIUM 8.7 mg/dL (8.5-10.1); CARBON DIOXIDE 24.9 mmol/L (21.0-32.0); CREATININE - SERUM 0.9 mg/dL (0.6-1.3); POTASSIUM - SERUM 3.2 mmol/L (3.5-5.1)
[2017-01-03 07:58] VITALS: BP 120/74
--- NOTE | 2017-01-03 08:21 | NUR ---
EATING BREAKFAST AT THIS TIMENAD NOTED
--- NOTE | 2017-01-03 08:23 | NUR ---
ASSESSMENT COMPLETED. TELEMERTY SHOWS ST AT 118. PT IS UP AB LIBERTAD. SL TO LEFT HAND. RIGHT SIDED CHEST TUBE TO LOW INTERMITTEN CHEST TUBE. DENIES ANY NEEDS. SR UP WITH CALL LIGHT IN REACH
[2017-01-03 11:14] VITALS: BP 118/58
--- NOTE | 2017-01-03 14:06 | NUR ---
AMBULATING IN [address]. FEELING BETTER. WILL MONITOR
[2017-01-03 16:18] VITALS: BP 121/66
--- NOTE | 2017-01-03 18:08 | NUR ---
LYING QUIETLY WITH EYES CLOSED. NO NEEDS VOICED. WILL MONITOR
[2017-01-03 20:00] VITALS: BP 108/58
--- NOTE | 2017-01-03 20:00 | NUR ---
PT ALERT/ORIENTED AND UP AND ABOUT IN HER ROOM. PIV TO LEFT HAND WITH NS @ 10ML/HR AND DEMEROL GLUE WHEEL OPERATOR 10/10/200MG LOCKOUT. PT HAS A RIGHT CHEST TUBE THAT IS CLAMPED WHILE ANTIBIOTIC HAS BEEN INSTILLED IN THE SITE. O2 @ 2L/NC WITH NONLABORED RESPIRATIONS. SR PER TELEMETRY. SEE SHIFT ASSESSMENT. CPOC.
[2017-01-04] VITALS: BP 107/53
--- NOTE | 2017-01-04 01:00 | NUR ---
PT RESTING IN BED WITH NO DISTRESS. CPOC.
[2017-01-04 04:00] VITALS: BP 94/67
--- NOTE | 2017-01-04 04:35 | NUR ---
PT RESTING. IV ABT UP AND INFUSING. NO DISTRESS. RIGHT CHEST TUBE STILL CLAMPED. CALL LIGHT IN REACH. CPOC.
[2017-01-04 05:13] LABS: BASOPHILS 0.1 % (0-2); EOSINOPHILS 1.1 % (0-7); HEMATOCRIT 39.3 % (36.0-48.0); HEMOGLOBIN 13.2 g/dL (12-16); IMMATURE GRANULOCYTES 0.3 % (0-5); LYMPHOCYTES 27.4 % (15-50); MCH 32.5 pg (26.0-34.0); MCHC 33.6 g/dL (31.0-37.0); MCV 96.8 fL (80.0-100.0); MEAN PLATELET VOLUME 9.5 fL (7.4-10.4); NEUTROPHILS 64.1 % (40-80); PLATELET COUNT 230 10x3/uL (130-400); RBC 4.06 10x6/uL (4.00-5.40); RDW 13.1 % (11.5-14.5); WBC 9.1 10x3/uL (4.8-10.8)
[2017-01-04 05:18] LABS: ANION GAP 13.3 mmol/L (8-16); CALCIUM 8.9 mg/dL (8.5-10.1); CARBON DIOXIDE 26.4 mmol/L (21.0-32.0); CREATININE - SERUM 0.9 mg/dL (0.6-1.3); POTASSIUM - SERUM 3.7 mmol/L (3.5-5.1)
--- NOTE | 2017-01-04 07:51 | NUR ---
IV PATENT. CT INTACT TO RIGHT SIDE. NO NEEDS VOICED AT THIS TIME. WILL CONT. PLAN OF CARE.
[2017-01-04 08:00] VITALS: BP 127/65
--- NOTE | 2017-01-04 08:15 | NUR ---
ASSESSMENT DONE. DENIES NEEDS.
[2017-01-04 12:00] VITALS: BP 104/49
[2017-01-04 16:00] VITALS: BP 109/49
--- NOTE | 2017-01-04 17:30 | NUR ---
WITHOUT CHANGES OR DISTRESS NOTED AT THIS TIME. DENIES NEEDS
[2017-01-04 19:00] VITALS: BP 117/62
--- NOTE | 2017-01-04 19:45 | NUR ---
PT SITTING ON SIDE OF BED AND VISITING WITH . ALERT/ORIENTED. CHEST TUBE TO RIGHT SIDE PATENT TO 20CM SUCTION. SALINE LOCK TO RFA WITH NS @ 10ML/HR AND DEMEROL RECEIVING DOCK CHECKER LOCKOUT FOR PAIN CONTROL. SR PER TELEMETRY. SEE SHIFT ASSESSMENT. CPOC.
[2017-01-05] VITALS: BP 123/64
[2017-01-05 04:10] VITALS: BP 122/70
--- NOTE | 2017-01-05 04:16 | NUR ---
RESTING IN BED WITH NO DISTRESS. IV DEMEROL SOIL CHEMIST IN USE FOR PAIN CONTROL RELATED TO RIGHT SIDE CHEST TUBE WITH 20CM SUCTION. CPOC. CALL LIGHT IN REACH.
[2017-01-05 04:37] LABS: BASOPHILS 0.2 % (0-2); EOSINOPHILS 1.7 % (0-7); HEMATOCRIT 38.1 % (36.0-48.0); HEMOGLOBIN 12.9 g/dL (12-16); IMMATURE GRANULOCYTES 0.2 % (0-5); LYMPHOCYTES 31.4 % (15-50); MCH 32.9 pg (26.0-34.0); MCHC 33.9 g/dL (31.0-37.0); MCV 97.2 fL (80.0-100.0); MEAN PLATELET VOLUME 9.7 fL (7.4-10.4); MONOCYTES 8.5 % (2-11); PLATELET COUNT 223 10x3/uL (130-400); RBC 3.92 10x6/uL (4.00-5.40); RDW 13.1 % (11.5-14.5)
[2017-01-05 05:24] LABS: ANION GAP 13.1 mmol/L (8-16); CALCIUM 8.8 mg/dL (8.5-10.1); CARBON DIOXIDE 26.2 mmol/L (21.0-32.0); POTASSIUM - SERUM 3.3 mmol/L (3.5-5.1)
[2017-01-05 08:00] VITALS: BP 117/67
--- NOTE | 2017-01-05 08:29 | NUR ---
IV PATENT. CT INTACT. GRACE AT BS. WILL CONT. PLAN OF CARE.
--- NOTE | 2017-01-05 08:56 | NUR ---
ASSESSMENT DONE. DENIES NEEDS.
[2017-01-05 11:21] VITALS: BP 129/64
[2017-01-05] MEDS ORDERED: VIBRAMYCIN 100100 MG PO (13:12)
[2017-01-05] MEDS ORDERED: IPRAT-ALBUT 0.5-3 ML UPD (13:47)
--- NOTE | 2017-01-05 13:50 | NUR ---
ASKED PATIENT FOR DISCHARGE IF SHE WANTED TO RECEIVE THE FLU SHOT-SHE REFUSED SAYING THAT SHE QUIT TAKING THEM.
--- NOTE | 2017-01-05 14:33 | NUR ---
Patient Name: ARPITA MORGAN Admission Status: ER Accout number: [id number] Admission Date: 12-31-2016 : 1955 Admission Diagnosis:PRIMARY SPONTANEOUS PNEUMOTHORAX Attending: NAYELI GRANDA Current LOS: 5 Anticipated DC Date: 01-05-2017 Planned Disposition: Home Primary Insurance: [employer] Discharge Planning Comments: * Is the patient Alert and Oriented? Yes 0 * How many steps to enter\\exit or inside your home? RAMP 0 * PCP DR. RILEY 0 * Pharmacy [facility] 0 * Preadmission Environment Home with Family 0 * ADLs Independent 0 * Equipment None 0 * Other Equipment [facility] EQUIPMENT PROVIDER PREFERENCE 0 * List name and contact numbers for known caregivers / representatives who currently or will assist patient after discharge: JENNIFER MORGAN, SPOUSE, 0 * Community resources currently utilized None 0 * Please name any agencies selected above. NONE 0 * Additional services required to return to the preadmission environment? No 0 * Can the patient safely return to the preadmission environment? Yes 0 * Has this patient been hospitalized within the prior 30 days at any hospital? No 0 CM MET WITH PT IN ROOM TO DISCUSS DISCHARGE PLANNING AND NEEDS. PT REPORTS LIVING AT HOME INDEPENDENTLY WITH HER SPOUSE. PT HAS NO MEDICAL EQUIPMENT AND WOULD LIKE [facility] TO PROVIDE HER NEBULIZER, PT REPORTS SHE WILL PICK IT UP ON HER WAY HOME. PT HAS NO OUTSIDE SERVICES ASSISTING IN THE HOME. CM DISCUSSED AVAILABILITY OF HOME HEALTH, REHAB SERVICES AND MEDICAL EQUIPMENT. PT DENIES DISCHARGE NEEDS, REPORTS HER SPOUSE WILL PICK HER UP FOR DISCHARGE HOME. [facility] SPOKE TO DR. WALTER WHO PROVIDED NEBULIZER AND NEB MEDICATION ORDER. [facility] CALLED [facility], , SPOKE TO MARISA AND PROVIDED REFERRAL INFORMATION, DETAILED WRITTEN ORDER TO BE FAXED TO [facility] TO OBTAIN DR. WALTER'S SIGNATURE; CM FAXED REFERRAL TO [facility], . CM WAITING PROCESSING OF NEBULIZER ORDER AND FAX OF "DWO" TO [facility] FOR TERE SIGNATURE. Warp Clamper: Sukhi Graves
--- NOTE | 2017-01-05 15:03 | NUR ---
DC GIVEN TO PT
--- NOTE | 2017-01-05 15:16 | NUR ---
DC HOME PER PERSONAL CAR
--- NOTE | 2017-01-11 11:43 | CN ---
PATIENT NAME:ARPITA MORGAN MEDICAL RECORD: [id number] : 53 LOCATION:D. D.2126 ADMIT DATE: 12/31/16 ACCOUNT: [id number] CONSULTING PHYSICIAN: RICARDO GIFFORD MD REFERRING PHYSICIAN: NAYELI GRANDA MD DATE OF CONSULTATION: 12/31/2016 PULMONARY CONSULTATION CONSULT REQUESTING PHYSICIAN: Nayeli Granda MD REASON FOR CONSULTATION: Right spontaneous pneumothorax. HISTORY OF PRESENT ILLNESS: Ms. Morgan is a 61-year-old female who was admitted in July with right-sided spontaneous pneumothorax, got better, discharged home, now yesterday, she was coughing. She was feeling like she is caching cold. She was also exposed to some dust from the neighbors. Then, the patient developed right-sided pleuritic type of chest pain, she could not breathe, came into the ER, found out that the patient has right pneumothorax. REVIEW OF SYSTEMS: Mainly in the history of present illness. PAST MEDICAL HISTORY: 1. COPD. 2. History of ovarian cancer. 3. Spontaneous pneumothorax in 07/2016. PAST SURGICAL HISTORY: 1. She had a thoracotomy in July of this year. 2. History of hysterectomy. 3. T&A. ALLERGIES: SHE IS ALLERGIC TO BENADRYL, CODEINE, MORPHINE AND PENICILLIN. PRESENT MEDICATIONS: On Sightly was reviewed. PERSONAL AND SOCIAL HISTORY: The patient is still smoking on a daily basis. She is a nondrinker. FAMILY HISTORY: Significant for cardiovascular disease and lung disease. PHYSICAL EXAMINATION: GENERAL: Now, the patient is lying comfortably. She is not in acute distress. VITAL SIGNS: The blood pressure 119/62, pulse is 84, respiration is 20, SPO2 is 97% on 2 liters nasal cannula. HEENT: Conjunctivae pink, sclerae nonicteric. NECK: Supple, no JVD. CHEST: The chest excursion is minimal on both sides. There is a right-sided chest tube in place. HEART: Rhythm regular, normal sound, no murmur. ABDOMEN: Soft, bowel sounds present. No hepatosplenomegaly. RECTAL: Deferred. EXTREMITIES: No cyanosis, no clubbing, no pedal edema. SKIN: Warm, normal turgor. CENTRAL NERVOUS SYSTEM: The patient is awake and alert. There is no obvious CONSULT REPORT [id number] ARPITA MORGAN cranial nerve abnormality. The gait was not tested. IMAGING: Chest radiograph, there is a right-sided chest tube in place. There is a small apical pneumothorax. OTHER LABORATORY DATA: CBC; the WBC is 9.6, hemoglobin 15.4, hematocrit is 45, the platelet count is 310. Chemistry; sodium 138, potassium 3.7, BUN is 6 and creatinine 0.9. IMPRESSION: 1. Right spontaneous pneumothorax, most likely secondary to emphysema. 2. Chronic obstructive pulmonary disease, acute exacerbation. 3. Acute tracheobronchitis. 4. Tobacco dependence syndrome. RECOMMENDATION: 1. I will check the CT scan of the chest. 2. Check alpha 1 level, start her on doxycycline IV, albuterol and ipratropium nebulizer, Brovana and budesonide nebulizer. Follow up labs and chest radiograph. Dr. Granda, thank you for involving me in the care of Mrs. Morgan. TRANSINT:[id number] Voice Confirmation ID: [id number] DOCUMENT ID: [id number] RICARDO GIFFORD MD at 1143 CC: NAYELI GRANDA MD [id number] DICTATION DATE: 12/31/16 1455 EXAMINATION GRADER: 12/31/162010 DIS IN 01/05/17 [facility] [address] [place] [address]
== END 2017-01-05 15:16 | disposition home or self-care (01) | DRG 200 ==
LOC: D.ER 06:12 → OBSVTIME 08:15 → D.M2 08:15
PROVIDERS: Radiology Diagnostic Radiology; ADMIT Family Medicine
PROC: 0W9930Z Drainage of Right Pleural Cavity with Drainage Device, Percutaneous Approach (ICD-10-PCS; principal; 2016-12-31 08:42)
PROC: 3E0L3GC Introduction of Other Therapeutic Substance into Pleural Cavity, Percutaneous Approach (ICD-10-PCS; 2017-01-03)
DX: J93.11 Primary spontaneous pneumothorax (principal); F17.203 Nicotine dependence unspecified, with withdrawal; J44.1 Chronic obstructive pulmonary disease with (acute) exacerbation; J44.0 Chronic obstructive pulmonary disease with (acute) lower respiratory infection; J20.9 Acute bronchitis, unspecified; Z85.43 Personal history of malignant neoplasm of ovary

== ENCOUNTER 2017-01-22 00:09 | Inpatient (IN) | payer MEDICAID ==
[2017-01-22] VITALS (14 sets, daily range): BP systolic 97–135; BP diastolic 47–87; BMI 26.6
[~2017-01-22 00:09] MED LIST changes: +IPRAT-ALBUT 0.5-3 ML UPD; +VIBRAMYCIN 100100 MG PO
[2017-01-22 01:18] LABS: BASOPHILS 0.2 % (0-2); EOSINOPHILS 2.9 % (0-7); HEMATOCRIT 42.8 % (36.0-48.0); HEMOGLOBIN 14.5 g/dL (12-16); IMMATURE GRANULOCYTES 0.3 % (0-5); LYMPHOCYTES 30.2 % (15-50); MCH 32.8 pg (26.0-34.0); MCHC 33.9 g/dL (31.0-37.0); MCV 96.8 fL (80.0-100.0); MEAN PLATELET VOLUME 9.6 fL (7.4-10.4); MONOCYTES 5.5 % (2-11); NEUTROPHILS 60.9 % (40-80); PLATELET COUNT 263 10x3/uL (130-400); RBC 4.42 10x6/uL (4.00-5.40); RDW 12.5 % (11.5-14.5)
[2017-01-22 01:33] LABS: ALBUMIN 3.6 g/dL (3.4-5.0); ANION GAP 12.9 mmol/L (8-16); BILIRUBIN - TOTAL 0.25 mg/dL (0.2-1.3); CALCIUM 9.2 mg/dL (8.5-10.1); CARBON DIOXIDE 25.4 mmol/L (21.0-32.0); CREATININE - SERUM 0.9 mg/dL (0.6-1.3); POTASSIUM - SERUM 3.3 mmol/L (3.5-5.1); PROTEIN - SERUM 7.1 g/dL (6.4-8.2)
--- NOTE | 2017-01-22 07:50 | NUR ---
ASSESSMENT COMPLETE. SL TO L FA. R CHEST TUBE TO 20 CM SUCTION. O2 2L NC. DENIES ANY NEEDS AT THIS TIME.
--- NOTE | 2017-01-22 08:15 | NUR ---
RATIONALE FOR SCD'S EXPLAINED. REFUSED SCD'S AT THIS TIME
--- NOTE | 2017-01-22 11:20 | NUR ---
OFF FLOOR TO OR VIA BED.
--- NOTE | 2017-01-22 14:29 | NUR ---
REC'D VIA BED FROM RECOVERY WITH NURSES X2, DROWSEY, AROUSABLE TO VERBAL STIMULI, ORIENTED, FOLLOWS COMMANDS, O2 VIA NC AT 4L, SAT 97%, OTHR VSS, DENIES PAIN, RIGHT LATERAL CHEST WITH CT X3, ANTERIOR AND POSTERIOR, Y CONNECTED TO WATER SEAL CANISTER, AND MEDIAL BY ITSELF, BLOODY DRAINAGE TO BOTH CANISTERS, AFFIXED WITH FOAM TAPE, DRESSING CDI, TABOR TO GARAVITY WITH CLEAR DRAINAGE TO BAG, SCD'S B/L, ASSESSMENT COMPLTED PER FLOWSHEET, ACCLAMATED TO ICU, CALL LIGHT IN REACH, SPOUSE TO BEDSIDE, NO OTHER NEEDS AT THIS TIME
--- NOTE | 2017-01-22 15:30 | NUR ---
NS IVF AND DEMEROL NEW CAR SALES MANAGER INITIATED PER MAR FLOWSHEET
--- NOTE | 2017-01-22 20:12 | NUR ---
Received patient resting in bed with eyes open watching TV, assessment completed per flowsheet. Patient AO x4, calm and cooperative. S1/S2 noted NSR on telemetry with HR 93, rhythmic and regular. Breathiig is slightly shallow on 4L via NC with O2 sat 97%, Lung sounds clear bilateral upper and diminished mid and lower. CTx3 noted R lateral chest with dressing CDI, small bloody drainage noted. Abdomen is round and soft with bowel sounds active x4, non-tender. Green secured in place, clear yellow urine noted. Full ROM all extremities with all pulses palpable, cap refill < 3 sec with skin warm/dry to touch. 22g PIV noted R wrist with NS @ 50ml/hr infusing. A-line noted R wrist with wrist protector is use, zeroed with good waveform. SUPERINTENDENT GREENS in use for pain management, patient c/o breakthrough pain R chest. Repositioned for comfort, assisted with oral care and provided moisturizer. No further needs at this time, all VSS and will continue to monitor.
--- NOTE | 2017-01-22 21:00 | NUR ---
No visitors at this time, patient resting in bed with eyes closed. Breathing is slightly shallow and unlabored on 4L via NC with O2 sat 95%. CT x3 noted with small bloody drainage R lateral chest, dressing CDI. Patient utilizes OBIEE REPORT DEVELOPER as required, denies other needs at this time. All VSS and will continue to monitor.
--- NOTE | 2017-01-22 22:56 | NUR ---
Reassessment completed per flowsheet, patient resting in bed with eyes open watching TV. Patient AO x4, calm and cooperative. S1/S2 noted Sinus Tach on telemetry with HR 105, rhythmic and regular. Breathing is slightly shallow and unlabored on 4L via NC with O2 sat 95%, lung sounds clear bilateral upper with diminished mid and lower. R lateral chest CT x3 with dressing CDI, connected to 20cm wall suction with small bloody drainage noted in collection. All pulses palpable with cap refill < 3 sec, skin warm/dry to touch. CLIENT ACCOUNT REPRESENTATIVE in use for pain management, repositioned for comfort. No further needs at this time, all VSS and will continue to monitor.
[2017-01-23] VITALS (23 sets, daily range): BP systolic 78–156; BP diastolic 52–113
--- NOTE | 2017-01-23 01:00 | NUR ---
Patient resting in bed with eyes closed, breathing is slightly shallow and unlabored on 4L via NC with O2 sat 96%. CT x3 to 20cm suction, small bloody drainage noted. Dressing CDI, no swelling/bleeding noted. TICKET WRITER for pain management, no c/o pain or other needs at this time. All VSS and will continue to monitor.
--- NOTE | 2017-01-23 03:00 | NUR ---
Reassessmnet completed per flowsheet, patient resting in bed with eyes closed. Patient Ao x4, calm and cooperative. S1/S2 noted NSR on telemetry with HR 89, rhythmic and regular. Breathing is slightly shallow on 4l via NC with O2 sat 95%, clear bilateral upper with diminished mid and lower. CT x3 R lateral chest dressing CDI, small bloody drainage noted in collection. All pulses palpable with cap refill < 3 sec, skin warm/dry to touch. EDI ANALYST in use, patient denies pain or other needs at this time. All VSS and will continue to monitor.
[2017-01-23 04:34] LABS: BASOPHILS 0.1 % (0-2); EOSINOPHILS 0 % (0-7); HEMATOCRIT 40.1 % (36.0-48.0); HEMOGLOBIN 13.3 g/dL (12-16); IMMATURE GRANULOCYTES 0.2 % (0-5); LYMPHOCYTES 12.7 % (15-50); MCH 32.5 pg (26.0-34.0); MCHC 33.2 g/dL (31.0-37.0); MEAN PLATELET VOLUME 9.4 fL (7.4-10.4); MONOCYTES 4.8 % (2-11); NEUTROPHILS 82.2 % (40-80); PLATELET COUNT 251 10x3/uL (130-400); RBC 4.09 10x6/uL (4.00-5.40); RDW 12.6 % (11.5-14.5)
[2017-01-23 04:37] LABS: WBC 14.4 10x3/uL (4.8-10.8)
[2017-01-23 04:51] LABS: ANION GAP 14.8 mmol/L (8-16); CALCIUM 8.7 mg/dL (8.5-10.1); CARBON DIOXIDE 23.2 mmol/L (21.0-32.0)
[2017-01-23 04:52] LABS: CREATININE - SERUM 1.2 mg/dL (0.6-1.3)
--- NOTE | 2017-01-23 05:00 | NUR ---
AM labs collected without difficulty, patient resting in bed with eyes closed. CT x3 dressing CDI, small bloody drainage noted. Breathing is slightly shallow and unlabored on 4L via NC with O2 sat 96%, lung sounds clear bilateral upper with diminished mid and lower. Denies pain or other needs at this time, all VSS and will continue to monitor.
--- NOTE | 2017-01-23 20:00 | NUR ---
2000: Pt resting in bed with eyes open. Pt denies pain, tingling, numbness, or nausea at this time. Pt states she does have pain with coughing and demonstrates pillow splinting with cough. Pt cough is strong-nonproductive. Pt is SR 90's on CM. Left radial art line with improper w/f. ART line flushes without difficulty and appears in position with armboard support. No swelling or bleeding is seen at insertion. Pt states that her arm is sore though. No redness or warmth felt. (NIBP SBP 112) Right chest tubes x3 extending from dressing on right lateral chest wall. x2 Chest tubes bifurcated to one thoraseal collection system at 20cm suction and with water seal. No air leak is detected. Drainage is serous. x1 CT labeled #3 (medial) to thoraseal collection system at 20cm suction and with water seal. No air leak detected. Drainage is < than previously documented CT, but remains serous. Pt ABD distended and pt states she feels like she needs to pass gas, but is unable. BS hypoactive x4. Green to gravity drainage with >50 cc/hr clear, yellow UOP.
--- NOTE | 2017-01-23 23:45 | NUR ---
2345: Pt resting with eyes closed at this time. Pt remains SR 70's on CM. Pt remains on 022LNC with RR14x with SPO2 98%. No change in chest tube outputs. No change in IVF/UOP.
[2017-01-24] VITALS (24 sets, daily range): BP systolic 84–138; BP diastolic 52–77
--- NOTE | 2017-01-24 01:30 | NUR ---
0130: No change in pt RESP/CV/NV status. No change in IVF/UOP. Pt remains SR 70's on CM with SBP 90's. Pt remains 022LNC with RR16x with SPO2 97%.
--- NOTE | 2017-01-24 03:30 | NUR ---
0330: No change in pt RESP/CV/NV status. No change in IVF/UOP. Chest tube output per I/O. Pt without c/o and remains in bed with eyes closed at this time.
--- NOTE | 2017-01-24 08:23 | NUR ---
LEFT RADIAL ART LINE NOT SHOWING A GOOD WAVE FORM AND HAND HAS NOTED INCREASED EDEMA, ART LINE REMOVED.
--- NOTE | 2017-01-24 10:25 | NUR ---
RIGHT ARM IV CHANGED TO LEFT FA X 2 ATTEMPTS 20G PIV PLACED
--- NOTE | 2017-01-24 19:20 | NUR ---
SHIFT ASSESSMENT COMPLETE. PT IS A&O X4 WITH NO COMPLAINTS OF PAIN AT THIS TIME. REFILLED REFRESHMENTS PER REQUEST. RR SHALLOW, LUNG SOUNDS ARE DIMINISHED, RR 23, O2 SAT 98%. 3 CHEST TUBES NOTED ON R CHEST, LATERAL SIDE, BLOODY FLUID NOTED IN COMPARTMENTS. HR 95, NORMAL SINUS RHYTHM, S1S2 AUDIBLE. TEMP 97.9, AXILLARY, NC @ 4 L/MIN. ABD IS DISTENDED BUT NON TENDER TO TOUCH. BS HYPOACTIVE X4. TABOR CATH INTACT DRAINING CLEAR YELLOW URINE. RADIAL AND PEDAL PULSES PALP. L RADIAL WRIST DRESSING CDI. NO FURTHER NEEDS AT THIS TIME. WILL CONT WITH POC.
--- NOTE | 2017-01-24 21:00 | NUR ---
PT IS RESTING AT THIS TIME. EASILY AROUSABLE. PO MEDS TAKEN WITHOUT DIFFICULTY. SHE IS IN GOOD SPIRITS AND STATES THAT SHE IS NOT IN ANY PAIN. NO FURTHER REQUESTS. WILL CONT WITH POC.
--- NOTE | 2017-01-24 23:00 | NUR ---
REASSESSMENT COMPLETE. PT IS A&O X4 WITH NO COMPLAINTS OF PAIN AT THIS TIME. R LATERAL CHEST BANDAGE INTACT, CHEST TUBES X3 EXTENDING OUT OF DRESSING AND HAS SEROUS DRAINING COLLECTING IN THE THORASEAL COLLECTION SYSTEM. 20 CM SUCTION WITH WATER SEAL. S1S2 AUDIBLE, LUNG SOUNDS ARE DIMINISHED. BS HYPOACTIVE. NO FURTHER CHANGES AT THIS TIME. WILL CONT WITH POC.
[2017-01-25] VITALS (23 sets, daily range): BP systolic 98–142; BP diastolic 54–99
--- NOTE | 2017-01-25 01:00 | NUR ---
SMALL LIQUID BM. PT ABLE TO USE BED BARLOW BY HERSELF. SHE DENIES ANY NEEDS AT THIS TIME. WILL CONT WITH POC.
--- NOTE | 2017-01-25 03:30 | NUR ---
REASSESSMENT COMPLETE. PT IS RESTING PEACEFULLY WITH NO SIGNS OF ACUTE DISTRESS NOTED. UPON AWAKENING SHE STATES THAT SHE IS NOT IN ANY PAIN. VSS. NO CHANGES FROM PREVIOUS ASSESSMENT. WILL CONT WITH POC.
--- NOTE | 2017-01-25 05:00 | NUR ---
PT IS SLEEPING WITH NO SIGNS OF ACUTE DISTRESS NOTED. VSS. SHE IS ABLE TO TURN INDEPENDENTLY AND IS LYING ON HER L SIDE. CHEST TUBES ARE PATENT WITH NO KINKS. NO INDICATION OF AIR LEAKS. WILL CONT WITH POC.
--- NOTE | 2017-01-25 07:00 | NUR ---
REPORT RECEIVED FROM OFF GOING NURSE. SEE FLOW SHEET FOR ASSESSMENT. PT IN BED RESTING WITH EYES CLOSED. 3 CHEST TUBES NOTED TO RIGHT CHEST. ON LCS. TWO THOROSEAL KITS NOTED TO PT. 2 CHEST TUBES ARE CONNCETED TO ONE THOROSEAL. BOTH DEVICES ARE ON LCS AND BUBBLING. DRESSING C/D/I. SERIOUS SANGIOUS DRAINAGE NOTED. DENIES PAIN AT THIS TIME. BREATHING SHALLOW. TAUGHT TO TCDB USING A PILLOW TO SPLINT ABD. CALL LIGHT IN REACH. WILL CONT POC.
--- NOTE | 2017-01-25 11:00 | NUR ---
NO CHANGES IN PREVIOUS ASSESSMENT. BREATHING REAMAINS THE SAME. CHEST TUBES REMAIN BUBBLING. CALL LIGHT IN REACH. WILL CONT POC.
--- NOTE | 2017-01-25 11:06 | NUR ---
Nutrition follow-up: Diet: Regular PO intake ~60% of most meals Labs reviewed Wt: 170# +BM: small, liquid RDN following.
--- NOTE | 2017-01-25 11:30 | NUR ---
LUNCH GIVEN. EATING A SALAD WHENEVER PT THREW UP. PRN PROMETHAZINE GIVEN. EFFECTIVE.
--- NOTE | 2017-01-25 12:00 | NUR ---
BED BARLOW PROVIDED FOR PT. PT ABLE TO GET ON BED BARLOW AND CLEAN HER SELF. DIARRHEA NOTED.
--- NOTE | 2017-01-25 12:24 | NUR ---
* Is the patient Alert and Oriented? Yes 0 * How many steps to enter\exit or inside your home? 2 0 * PCP Dr. Hardin 0 * Pharmacy [facility] 0 * Preadmission Environment Home with Family 0 * ADLs Independent 0 * Equipment Nebulizer 0 * List name and contact numbers for known caregivers / representatives who currently or will assist patient after discharge: Joan - Rylan [phone] 0 * Additional services required to return to the preadmission environment? No 0 * Can the patient safely return to the preadmission environment? Yes 0 * Has this patient been hospitalized within the prior 30 days at any hospital? No Patient Name: ARPITA MORGAN Admission Status: ER Accout number: [id number] Admission Date: 01-22-2017 : 1955 Admission Diagnosis: Attending: ESPINOZA KAY Current LOS: 3 Planned Disposition: Home Primary Insurance: [facility] [employer] Discharge Planning Comments: CM met with patient to assess dc plans/needs. Patient states she lives at home with her . She reports she is independent with all ADL's & IADL's. She has a walker at home should she need it. She has not had home health services in the past. At dc, she plans to return home with her . No needs identified or verbalized at this time. CM will follow & assist as needed. Metal Roaster: Zonia Pope
--- NOTE | 2017-01-25 15:00 | NUR ---
REMAINS TO USE BED BARLOW INDEPENDENTLY WITH DIARRHEA NOTED. BREATHING REMAINS THE SAME. CALL LIGHT IN REACH. WILL CONT POC.
--- NOTE | 2017-01-25 15:10 | NUR ---
PT DISCHARGE INSTURCTIONS GIVEN, PT VERBALIZED UNDERSTANDING, FOLLOW UP APPTS SCHEDULED, SEE DISCHARGE PAPER WORK. PT DISCHARGED WITH GRANDMOTHER.
--- NOTE | 2017-01-25 18:00 | NUR ---
DR NEWMAN AT BED SIDE. TURNED OFF LCS. PT TOLERATING WELL. DR NEWMAN WANTS PT OOB AND TO REMOVE FC.
--- NOTE | 2017-01-25 19:20 | NUR ---
SHIFT ASSESSMENT COMPLETE. PT IS A&O X4 WITH NO COMPLAINTS OF PAIN OR DISCOMFORT. PIV TO R WRIST INFUSING NS @ 50 ML/HR WITH [employer] IMAGING SERVICES DIRECTOR AVAILABLE NEEDED. NC @ 2 L/MIN. O2 SAT 98%. S1S2 AUDIBLE, HR 96 BPM NORMAL SINUS RHYTHM. RR SHALLOW, DIMINISHED LUNG SOUNDS THROUGHOUT ALL LOBES. CHEST TUBES X3 ON R LATERAL CHEST. DRESSING CDI, TUBES DRAINING SEROUS DRAINAGE. PT IS ABLE TO VOID BY HERSELF. SMALL BM, MOSTLY GAS. SCD'S ON SIDE OF BED PT STATES THAT SHE WILL NOT PUT THEM ON RIGHT NOW. REFILLED REFRESHMENTS. WILL CONT WITH POC.
--- NOTE | 2017-01-25 21:00 | NUR ---
PT IS IN GOOD SPIRITS WITH NO COMPLAINTS OF PAIN. CHANGED LINEN WORKER AND IV TUBING. SWAB CAPPED, LABELED. CLEANED UP PT'S ROOM, FREE FROM CLUTTER. BED IN LOWEST POSITION, CALL LIGHT IN REACH. WILL CONT WITH POC.
--- NOTE | 2017-01-25 23:00 | NUR ---
REASSESSMENT COMPLETE. PT IS SLEEPING WITH NO SIGNS OF ACUTE DISTRESS. NO CHANGE FROM PREVIOUS ASSESSMENT. ASSISTED PT ON BED BARLOW. SMALL AMOUNT OF URINE AND FECAL MATTER. SHE STATES THAT SHE FEELS SOME RELIEF. NO FURTHER NEEDS AT THIS TIME. VSS. CHEST TUBES INTACT DRAINING SEROUS FLUID. WILL CONT TO MONITOR.
[2017-01-26] VITALS (15 sets, daily range): BP systolic 109–142; BP diastolic 60–85
--- NOTE | 2017-01-26 01:00 | NUR ---
PT RESTING WITH NO SIGNS OF ACUTE DISTRESS NOTED. WILL CONT WITH POC.
--- NOTE | 2017-01-26 03:30 | NUR ---
REASSESSMENT COMPLETE. PT IS RESTING PEACEFULLY AND REQUESTS FOR SCD'S TO BE PLACED BACK ON. SCD'S SECURED. VSS. NO CHANGES FROM PREVIOUS ASSESSMENT. WILL CONT WITH POC.
[2017-01-26 04:10] LABS: BASOPHILS 0.1 % (0-2); HEMATOCRIT 37.2 % (36.0-48.0); HEMOGLOBIN 12.2 g/dL (12-16); IMMATURE GRANULOCYTES 0.2 % (0-5); LYMPHOCYTES 23.1 % (15-50); MCH 32.8 pg (26.0-34.0); MCHC 32.8 g/dL (31.0-37.0); MEAN PLATELET VOLUME 9.5 fL (7.4-10.4); MONOCYTES 7.6 % (2-11); PLATELET COUNT 225 10x3/uL (130-400); RBC 3.72 10x6/uL (4.00-5.40); RDW 12.5 % (11.5-14.5); WBC 8.5 10x3/uL (4.8-10.8)
[2017-01-26 04:18] LABS: CALC OSMOLALITY 281 mosm/kg (275-300); CALCIUM 8.5 mg/dL (8.5-10.1); CARBON DIOXIDE 28.9 mmol/L (21.0-32.0); CHLORIDE - SERUM 104 mmol/L (98-107); CREATININE - SERUM 0.6 mg/dL (0.6-1.3); POTASSIUM - SERUM 3.5 mmol/L (3.5-5.1); SODIUM 143 mmol/L (136-145); UREA NITROGEN 5 mg/dL (7-18); eGFR NON AFRICAN AMERICAN > 90 mL/min (90-120)
[2017-01-26 04:27] LABS: GLUCOSE 103 mg/dL (74-106)
--- NOTE | 2017-01-26 05:10 | NUR ---
PT RESTING WITH NO SIGNS OF PAIN OR DISCOMFORT. VSS. WILL CONT TO MONITOR.
--- NOTE | 2017-01-26 07:30 | NUR ---
ASSISTED PT TO CHAIR AT BED SIDE. STEADY GAIT. AT BEDSIDE. EATING BREAKFAST. HAS A BED BARLOW UNDER PT. CALL LIGHT IN REACH. WILL CONT POC
--- NOTE | 2017-01-26 08:00 | NUR ---
BED BARLOW REMOVED. MODERATE AMOUNT OF DIARRHEA NOTED. CALL LIGHT IN REACH. WILL CONT POC.
--- NOTE | 2017-01-26 10:01 | NUR ---
PT ASSISTED BACK IN BED. STATES THAT SHE WILL GET UP AT BEDSIDE FOR LUNCH AND DINNER.
--- NOTE | 2017-01-26 10:16 | NUR ---
DR NEWMAN AT BEDSIDE. HE REMOVED THE 2 LOWER CHEST TUBES. THE MOST SUPIRIOR CHEST TUBE REMAINS. DRESSING OVER REMOVED CHEST TUBE SITES C/D/I. REMAINING CHEST TUBE RENFORCED WITH 4X4 AND TAPE. PT TOLERATED CT REMOVAL. VSS. CALL LIGHT IN REACH. WILL CONT POC.
--- NOTE | 2017-01-26 10:21 | NUR ---
RECIEVED TRANSFER OUT OF ICU ORDERS. WAITING FOR BED.
--- NOTE | 2017-01-26 12:34 | NUR ---
PT UP SITTING IN BEDSIDE CHAIR EATING LUNCH. NO C/O SOB. VSS. NO S/SX OF DISTRESS/DISOCMFORT NOTED. CALL LIGHT IN REACH. WILL CONT POC.
--- NOTE | 2017-01-26 15:00 | NUR ---
NO CHANGES IN PTS CONDITION. PT UP TO CHAIR DURING MEALS. TOLERATING WELL. CHANGED DRESSING TO BACK. C/D/I. PT DENIES PAIN CALL LIGHT IN REACH. WILL CONT POC
--- NOTE | 2017-01-26 19:45 | NUR ---
RECIEVED PT TO FLOOR FROM ICU. ALERT AND ORIENTED AND ABLE TO VERBALIZE NEEDS. PT HELPED TRANSFER SELF TO BED. IV IS PATENT AND FLUIDS RUNNING PER ORDER. CHEST TUBE TO RIGHT SIDE PATENT WITH SITE C/D/I. O2 @ 2 PER NASAL CANNULA. PT STATES PAIN IS 3/10 WITH WATER METER READER PUMP. NO NEEDS ARE VERBALIZED AT THIS TIME. WILL CONTINUE TO MONITOR. SIDE RAILS ARE UP X 2. BED IS IN LOWEST POSITION. SCD'S PLACED. CALL LIGHT IS WITHIN REACH.
--- NOTE | 2017-01-26 20:27 | NUR ---
SHIFT ASSESSMENT COMPLETED. SCHEDULED PEPCID ADMINISTERED PER ORDER. PT REFUSED SCHEDULED MILK OF MAG AT THIS TIME. NO NEEDS ARE VOICED. WILL MONITOR. SIDE RAILS X 2. BED LOW. CALL LIGHT IN REACH.
[2017-01-27] VITALS: BP 124/64
--- NOTE | 2017-01-27 00:47 | NUR ---
IV TO RIGHT FOREARM INFILTRATED. D/C'D WITH CATHETER TIP INTACT. WARM COMPRESS APPLIED. NEW IV SITED TO LEFT FOREARM X 1 ATTEMPT. 22G. GOOD BLOOD RETURN. FLUSHES W/O DIFFICULTY. FLUIDS HOOKED BACK UP PER ORDER. PT TOLERATED WELL. SIDE RAILS X 2. BED LOW. CALL LIGHT IN REACH.
[2017-01-27 08:37] VITALS: BP 127/80
[2017-01-27 12:11] VITALS: BP 123/61
[2017-01-27 15:34] VITALS: BP 120/61
--- NOTE | 2017-01-27 17:25 | NUR ---
PT SITTING UP ON SIDE OF BED WITH NO VISABLE SIGNS OF PAIN OR DISCOMFORT AT THIS TIME. BED IN LOW POSITION AND CALL LIGHT WITHIN REACH. WILL CONTINUE TO MONITOR.
--- NOTE | 2017-01-27 19:30 | NUR ---
RECIEVED SHIFT REPORT. PT IS LYING IN BED. ALERT AND ORIENTED AND ABLE TO VERBALIZE NEEDS. IV IS PATENT AND SALINE LOC AT THIS TIME. PT IS AMBULATORY BUT WAS INSTRUCTED TO CALL FOR ANY ASSISTANCE NEEDED. O2 @ 2 PER NASAL CANNULA. SCD'S ON. CHEST TUBE TO RIGHT SIDE PATENT WITH SIDE C/D/I. PT STATES PAIN IS 5/10. NO NEEDS ARE VERBALIZED AT THIS TIME. WILL CONTINUE TO MONITOR. SIDE RAILS ARE UP X 2. BED IS IN LOWEST POSITION. CALL LIGHT IS WITHIN REACH.
[2017-01-27 20:00] VITALS: BP 117/50
--- NOTE | 2017-01-27 20:32 | NUR ---
SHIFT ASSESSMENT COMPLETED. NIGHT MEDS GIVEN NO PROBLEMS. PT REFUSED SCHEDULED MILK OF MAG AT THIS TIME. NO NEEDS ARE VOICED. WILL MONITOR. SIDE RAILS X 2. BED LOW. CALL LIGHT IN REACH.
[2017-01-28] VITALS: BP 117/63
--- NOTE | 2017-01-28 07:48 | NUR ---
REC'D IN BED AWAKE AND ALERT. RESP EVEN AND UNLABORED WITN NO DISTTRSS NOTED. CAN EXPRESS NEEDS AND WANTS. NO C/O NOTED OR VOICED. ASSESSMENT COMPLETED. C/L IN REACH AT BEDSIDE.
[2017-01-28 09:37] VITALS: BP 126/66
[2017-01-28 13:06] VITALS: BP 119/55
[2017-01-28] MEDS ORDERED: ULTRAM50 MG PO (14:43)
--- NOTE | 2017-01-28 14:53 | NUR ---
D/C REASSESSMENT NOTE: PATIENT IS DISCHARGING HOME TODAY/REFUSED HOME HEALTH/ FRIEND OR FAMILY IS DRIVING HER HOME.
--- NOTE | 2017-02-02 11:14 | OP ---
PATIENT NAME: ARPITA MORGAN MEDICAL RECORD: [id number] :53 LOCATION:D.MS [id number] ADMISSION DATE:01/22/17 SURGEON: ESPINOZA KAY MD DATE OF OPERATION: 01/22/2017 PREOPERATIVE DIAGNOSES: 1. Spontaneous recurrent right pneumothorax. 2. Chronic obstructive pulmonary disease. 3. Nicotine dependence with withdrawal. POSTOPERATIVE DIAGNOSES: 1. Spontaneous recurrent right pneumothorax. 2. Chronic obstructive pulmonary disease. 3. Nicotine dependence with withdrawal. PROCEDURE: Right VATS with mechanical pleurodesis. SURGEON: Espinoza Kay MD REPORT OF PROCEDURE: The patient was placed in the left lateral decubitus position and the right chest was prepped and draped in sterile fashion. The patient had an indwelling 20-Jordanian chest tube, which was removed and the area was prepped around it. This opening was extended and a 12-Jordanian trocar was inserted. We were able to insert a 10-Jordanian camera and inspect the right chest. The lungs themselves appeared to look normal with no sign of any bulla or blebs. There was already some adhesions of the lung to the chest wall, especially superiorly from a recent doxycycline chemical pleurodesis. A new opening was made in the patient's anterior right chest just above the eighth intercostal space. We used a Bovie scratch pad to irritate the inner lining of the patient's chest cavity with a focus taken to the pleura of the chest wall. Vigorous irritation of the tissue was performed. In order to complete this, we made another small incision on the most inferior aspect of the patient's right chest over the tenth intercostal space. We irritated the diaphragm and the pericardium, we made sure to try and cover every area in the patient's chest cavity. As I said the lung was already stuck to the superior aspect of the chest. We tried to irritate the tissue around this site as best we could. At the conclusion of the case, there was significant oozing from the chest wall. We irrigated out the chest cavity with normal saline. At this point, I felt we would cover everything appropriately and then we ran over the lung itself with a scratch pad a few times to irritate the tissue. At this point, a 32-Jordanian chest tube was placed anteriorly and posteriorly and sutured into place with 2-0 nylons and a 40-Jordanian right angle chest tube was inserted in the most inferior aspect of the chest and sutured in with a 2-0 nylon. The lung at this point was reexpanded. COMPLICATIONS: None. CONDITION: Stable. ANESTHESIA: General endotracheal. BLOOD LOSS: 50 mL. TRANSINT:[id number] Voice Confirmation ID: [id number] DOCUMENT ID: [id number] OPERATIVE REPORT [id number] ARPITA MORGAN, ESPINOZA CHAVEZ at 1114 CC: [id number] DICTATION DATE: 01/22/17 1330 OPERATIONS TRAINER: 01/22/17 1347 DIS IN 01/28/17 [id number] [place] [address]
--- NOTE | 2017-02-15 14:45 | DS ---
PATIENT:ARPITA MORGAN :53 MEDICAL RECORD: [id number] DISCHARGE SUMMARY ADMISSION DATE: 01/22/17 DISCHARGE DATE: 01/28/17 DATE OF ADMISSION: 01/22/2017 DATE OF DISCHARGE: 01/28/2017 ADMISSION DIAGNOSES: 1. Recurrent right pneumothorax. 2. Chronic obstructive pulmonary disease. 3. Nicotine dependence with withdrawal. DISCHARGE DIAGNOSES: 1. Recurrent right pneumothorax. 2. Chronic obstructive pulmonary disease. 3. Nicotine dependence with withdrawal. PROCEDURE: Right VATS with mechanical pleurodesis on 01/22/2017. REPORT OF HOSPITALIZATION: The patient was admitted to the hospital through the ER, where she had had a chest tube placed for recurrent right pneumothorax. The patient had been treated with a chemical pleurodesis on her last admission. On this admission, the decision was made to take her to the operating room for mechanical pleurodesis. She underwent a VATS procedure with mechanical pleurodesis. No talc was used because THE PATIENT REPORTED BEING ALLERGIC TO TALC. Postoperatively, the patient was held in with [address] Slowly, these chest tubes were removed, and the patient's lung appeared to be staying up appropriately. She was not complaining of shortness of breath. Her x-rays appeared to be proceeding nicely. At that point, we felt she was stable for discharge home. DISCHARGE INSTRUCTIONS: Return to clinic or call with any shortness of breath, fevers, or chills. ACTIVITIES: No flying or scuba diving for 6 weeks. DISCHARGE MEDICATIONS: Resume home meds with inclusion of tramadol. FOLLOWUP: Followup is in clinic with me in 1-2 weeks. TRANSINT:[id number] Voice Confirmation ID: [id number] DOCUMENT ID: [id number] ESPINOZA KAY MD at 1445 CC: [id number] DICTATION DATE: 02/09/17 1458 PROCESS PROJECT ENGINEER: 02/09/17 1510 DIS IN 01/28/[address] [address]
== END 2017-01-28 16:00 | disposition home or self-care (01) | DRG 164 ==
LOC: D.ER 00:09 → D.MS 02:42 → D.ICU 02:42 → D.MS 01-26 19:47
PROVIDERS: Emergency Medicine; ADMIT Surgery
PROC: 0B5N4ZZ Destruction of Right Pleura, Percutaneous Endoscopic Approach (ICD-10-PCS; principal; 2017-01-22 09:30)
DX: J93.9 Pneumothorax, unspecified (principal); F17.203 Nicotine dependence unspecified, with withdrawal; J44.9 Chronic obstructive pulmonary disease, unspecified

== ENCOUNTER 2017-10-28 21:08 | Emergency (ER) | payer MEDICAID ==
[~2017-10-28] VITALS: Ht 165.1 cm; Wt 90.9 kg
[~2017-10-28 21:08] MED LIST changes: +ULTRAM50 MG PO
[2017-10-28 21:14] VITALS: Ht 165.1 cm; Wt 90.9 kg
[2017-10-28 22:36] VITALS: BP 146/72
== END 2017-10-28 22:35 | disposition home or self-care (01) ==
LOC: D.ER 21:08
DX: I10 Essential (primary) hypertension (principal); H93.13 Tinnitus, bilateral; J44.9 Chronic obstructive pulmonary disease, unspecified

== ENCOUNTER → 2018-03-14 10:19 | Outpatient (CLI) | payer MEDICAID ==
[2017-10-28 21:14] VITALS: BMI 33.3
== END | disposition home or self-care (01) ==
LOC: D.RAD 10:19 → D.RT 11:00
DX: J44.9 Chronic obstructive pulmonary disease, unspecified (principal); J93.83 Other pneumothorax

== ENCOUNTER → 2018-04-18 16:42 | Outpatient (CLI) | payer MEDICAID ==
[2017-10-28 21:14] VITALS: BMI 33.3
== END | disposition home or self-care (01) ==
LOC: D.LABREF 16:42
DX: M19.012 Primary osteoarthritis, left shoulder (principal); Z11.8 Encounter for screening for other infectious and parasitic diseases

== ENCOUNTER 2018-04-30 10:59 | Inpatient (IN) | payer MEDICAID ==
[~2018-04-30] VITALS: Ht 165.1 cm; Wt 86.2 kg
[2018-06-02] MEDS ORDERED: ALBUTEROL2.5 MG/3 M INH (10:43)
[2018-06-02] MEDS ORDERED: LIPITOR20 MG PO (10:43)
[2018-06-02] MEDS ORDERED: OMEPRAZOLE20 M1 PO (10:44)
[2018-06-02] MEDS ORDERED: BISOPROLOL-HCT1 EAC1 PO (10:44)
[2018-06-02 11:46] LABS: BASOPHILS 0.2 % (0-2); EOSINOPHILS 1.2 % (0-7); HEMATOCRIT 40.8 % (36.0-48.0); HEMOGLOBIN 14.1 g/dL (12-16); IMMATURE GRANULOCYTES 0.3 % (0-5); LYMPHOCYTES 18.5 % (15-50); MCH 32.4 pg (26.0-34.0); MCHC 34.6 g/dL (31.0-37.0); MCV 93.8 fL (80.0-100.0); MEAN PLATELET VOLUME 8.9 fL (7.4-10.4); MONOCYTES 5.9 % (2-11); NEUTROPHILS 73.9 % (40-80); PLATELET COUNT 268 10x3/uL (130-400); RBC 4.35 10x6/uL (4.00-5.40); RDW 13.5 % (11.5-14.5)
[2018-06-02 11:52] LABS: APPEARANCE CLEAR (CLEAR); BILIRUBIN NEGATIVE (NEGATIVE); COLOR STRAW (YELLOW); GLUCOSE NEGATIVE (NEGATIVE); KETONE NEGATIVE (NEGATIVE); NITRITE NEGATIVE (NEGATIVE); PROTEIN NEGATIVE (NEGATIVE); SPECIFIC GRAVITY 1.005 (1.005-1.020); UROBILINOGEN NORMAL (NORMAL)
[2018-06-02 11:55] LABS: ANION GAP 8.6 mmol/L (8-16); CALCIUM 9.5 mg/dL (8.5-10.1); CARBON DIOXIDE 33.7 mmol/L (21.0-32.0); CREATININE - SERUM 1.1 mg/dL (0.6-1.3); POTASSIUM - SERUM 3.3 mmol/L (3.5-5.1)
[2018-06-02 11:56] LABS: INR 0.96 (0.85-1.17); PROTIME 12.3 SECONDS (11.6-15.0)
[2018-06-07 05:39] VITALS: BP 141/76; BMI 26.3
[2018-06-07 06:01] LABS: BASOPHILS 0.1 % (0-2); EOSINOPHILS 1.7 % (0-7); HEMATOCRIT 38.2 % (36.0-48.0); HEMOGLOBIN 13.2 g/dL (12-16); IMMATURE GRANULOCYTES 0.2 % (0-5); LYMPHOCYTES 23.1 % (15-50); MCH 32.2 pg (26.0-34.0); MCHC 34.6 g/dL (31.0-37.0); MCV 93.2 fL (80.0-100.0); MEAN PLATELET VOLUME 9.2 fL (7.4-10.4); MONOCYTES 6.5 % (2-11); NEUTROPHILS 68.4 % (40-80); PLATELET COUNT 233 10x3/uL (130-400); RDW 13.6 % (11.5-14.5); WBC 8.9 10x3/uL (4.8-10.8)
[2018-06-07 06:36] LABS: ALBUMIN 3.5 g/dL (3.4-5.0); ANION GAP 12.5 mmol/L (8-16); BILIRUBIN - TOTAL 0.27 mg/dL (0.2-1.3); CALCIUM 8.9 mg/dL (8.5-10.1); CARBON DIOXIDE 30.9 mmol/L (21.0-32.0); CREATININE - SERUM 1.2 mg/dL (0.6-1.3); POTASSIUM - SERUM 3.4 mmol/L (3.5-5.1); PROTEIN - SERUM 6.8 g/dL (6.4-8.2)
--- NOTE | 2018-06-07 09:05 | NUR ---
PLASMA BLADE SET TO 6/8 BOVIE PAD RIGHT THIGH [id number] EXP 09/17/2019
[2018-06-07 11:39] VITALS: BP 108/70
[2018-06-07 12:32] VITALS: BMI 31.6
--- NOTE | 2018-06-07 14:29 | OP ---
PATIENT NAME: ARPITA MORGAN MEDICAL RECORD: [id number] :53 LOCATION:D.MS [id number] ADMISSION DATE:06/07/18 SURGEON: LOUIS HAIDER DO DATE OF OPERATION: 06/07/2018 PROCEDURE PERFORMED: Left total shoulder arthroplasty. PREOPERATIVE DIAGNOSIS: Left shoulder osteoarthritis. POSTOPERATIVE DIAGNOSIS: Left shoulder osteoarthritis. INDICATIONS: Ms. Morgan is a 63-year-old female who presented to my office for almost a year now. She has had left shoulder pain and lack of motion for months and years even. She says it pretty much hurts her all the time. She has tried all manner of nonoperative treatment including injections to no avail. She wanted a total shoulder done. I informed her of the risks and benefits including infection, bleeding, damage to the axillary nerve and even . She was okay with those risks and consented to the procedure. DESCRIPTION OF SURGEON: Louis Haider DO DESCRIPTION OF PROCEDURE: The patient received a block by anesthesia in the preoperative area, was given 900 mg of clindamycin preoperatively. She was taken back to the operative suite. She was placed in the beach chair position. Left shoulder was prepped and draped in sterile fashion. A timeout was performed and everyone was in agreement with the correct side, site, patient, and procedure. I was assisted in this case by Guy Bey, nurse practitioner. He assisted with retracting and closing as the case would not have been performed without assistance. Once timeout was performed, the patient was then prepped and draped. Incision began over the deltopectoral interval. Careful dissection was made down to the cephalic vein and the cephalic vein was taken laterally. The adhesions were taken down the deltoid fibers with a Guerra and a brown retractor was used to retract the deltoid out of the way. The pec proximal centimeter was released off the humerus and the biceps tendon was tenodesed to that and then the bicep tendon was cut. It was traced up through the bicipital groove through the rotator interval with scissors and the rotator interval was opened. Some of the biceps tendon was removed at that time. The subscapularis tendon was then tagged with #2 Ethibond and peeled off the lesser tuberosity. The humeral head was then exposed and the cutting guide was put down the shaft of the humerus. It was pinned into place and then the humeral head was cut. It was quite worn and had a big gash in the back of the cartilage of the humeral head. After the humeral head had been cut, the osteophytes were removed off the inferior border of the humeral head and neck area and the glenoid was exposed. A Guerra was used to remove the adhesions of the subscapularis on the anterior scapula and a retractor was placed then to expose the glenoid. The labrum was removed as well as the rest of the biceps tendon stump and a good exposure of the glenoid was made and sized to be a 35 small. The centering pin was used for the implant. Once the pin was centered, the center drill was used and then the guide was put in, the 3 peripheral holes were drilled. Once that was done, it was thoroughly irrigated. The trial was put in and fit very well. The trial was then removed and the holes were cemented and cement was placed on the implant on the peripheral pegs. This was impacted into place and excess cement was removed at that time. Once the cement had dried, the humeral head was exposed and broached to a 5, the 5 fit well and the head was put on. The shoulder seemed too loose at that time. We tried different OPERATIVE REPORT [id number] ARPITA MORGAN size of heads and thicknesses, then went to a #6 stem, left it slightly proud and put the trial head on. This fit very well and had appropriate balance, 50% shuck, and bounced right back into the joint. Once it was appropriately balanced with that, this was removed and the drill holes were placed in the lesser tuberosity and #2 Ethibond was placed again and then the stem was then put down and impacted into place and balanced again and made sure that it fit well and it did, it had good 50% posterior shuck and bounced right back on the subscapularis. The wound was then irrigated. Derrick, vancomycin, tobramycin powder placed in the shoulder joint. The subscapularis was then repaired to the lesser tuberosity with sutures and then rotator interval was closed with #2 Ethibond as well. Once this was completed, the irrigation was done and the rest of the powders were put in, tobramycin and vancomycin as well as the Surgicel beads. The skin was then closed with 2-0 Vicryl in inverted interrupted fashion, 4-0 Monocryl ran on the skin and Prineo was placed in the skin. A Telfa and Tegaderm were placed on the shoulder and the patient was placed in a sling. She was awakened and taken to recovery in stable condition. Blood loss approximately 150 mL. COMPLICATIONS: None. TRANSINT:[id number] Voice Confirmation ID: [id number] DOCUMENT ID: [id number] LOUIS HAIDER DO at 1429 CC: [id number] DICTATION DATE: 06/07/18 1008 OIL AND GAS EXPLORATION TECHNICIAN: 06/07/18 1032 ADM IN [facility] [address] [place] [address]
--- NOTE | 2018-06-07 14:36 | NUR ---
PT SITTING UP IN BED DOING WELL, VSS, ASSISTED PT UP TO RESTROOM, CONTINUE WITH PLAN OF CARE, PT IS WANTING FULL DINNER WILL ASK DR Chavez WHEN HE COMES IN
--- NOTE | 2018-06-07 14:56 | NUR ---
ORDERED PT DINNER TRAY AND ASSISTED HER TO SIT UP AT SIDE OF BED, NO S/S OF DISTRESS. BED IN LOW POSITION, CL IN REACH CONTINUE WITH PLAN OF CARE
--- NOTE | 2018-06-07 19:00 | NUR ---
I HAVE REVIEWED THIS PT AND I CONCORED WITH PT SHIFT ASSESSMENT BY DIGITAL ASSET MANAGER
[2018-06-07 20:00] VITALS: BP 110/57
--- NOTE | 2018-06-07 20:00 | NUR ---
ALERT RESTING IN BED SLING IN PLACE TO LEFT SHOULDER, DENIES PAIN AT THIS TIME, INSTRUCTED TO CALL FOR PAIN MEDS BEFORE PAIN GETS TOO BAD TO KEEP UNDER CONTROL, CALL SARATH GOODSON, SEE SHIFT ASSESSMENT
[2018-06-08 04:00] VITALS: BP 103/63
[2018-06-08 05:17] LABS: BASOPHILS 0.1 % (0-2); EOSINOPHILS 0 % (0-7); HEMATOCRIT 35.4 % (36.0-48.0); HEMOGLOBIN 12.1 g/dL (12-16); IMMATURE GRANULOCYTES 0.3 % (0-5); LYMPHOCYTES 10.6 % (15-50); MCH 32.1 pg (26.0-34.0); MCHC 34.2 g/dL (31.0-37.0); MCV 93.9 fL (80.0-100.0); MEAN PLATELET VOLUME 9.3 fL (7.4-10.4); MONOCYTES 5.5 % (2-11); NEUTROPHILS 83.5 % (40-80); PLATELET COUNT 267 10x3/uL (130-400); RBC 3.77 10x6/uL (4.00-5.40); RDW 13.7 % (11.5-14.5)
[2018-06-08 05:41] LABS: WBC 17.7 10x3/uL (4.8-10.8)
[2018-06-08 05:53] LABS: ANION GAP 17.6 mmol/L (8-16); CALCIUM 8.4 mg/dL (8.5-10.1); CARBON DIOXIDE 23.6 mmol/L (21.0-32.0); CREATININE - SERUM 1.3 mg/dL (0.6-1.3); POTASSIUM - SERUM 3.2 mmol/L (3.5-5.1)
[2018-06-08 09:07] VITALS: BP 129/60
--- NOTE | 2018-06-08 10:51 | NUR ---
PT SITTING UP IN BED WITH SPOUSE AT [facility], PT HAD LAST DOSE OF ABX THIS MORNING, SL IV. ADMINISTERED PRN PAIN MEDICATION WITH MORNING MEDS TO HELP CONTROL PAIN IN SHOULDER, NO OTHER NEEDS VOICED AT THIS TIME, CONTINUE [facility] PLAN OF CARE
[2018-06-08 13:29] VITALS: BP 116/53
[2018-06-08 13:59] VITALS: Ht 165.1 cm; Wt 86.2 kg
[2018-06-08 17:07] VITALS: BP 120/56
--- NOTE | 2018-06-08 18:20 | NUR ---
I have reviewed this patient and I concur with the Shift Assessment completed by the Licensed Practical Nurse today this shift.
--- NOTE | 2018-06-08 20:00 | NUR ---
ASSESSMENT PER FLOWSHEET. DRESSING TO LEFT SHOULDER C/D/I WITH SLING ON. SR UP X2 CALL LIGHT WITHIN RECH.
[2018-06-08 22:17] VITALS: BP 136/73
--- NOTE | 2018-06-09 | NUR ---
EYES CLOSED RESPIRATIONS WITH EASE AND UNLABORED.
--- NOTE | 2018-06-09 04:23 | NUR ---
RESING QUIETLY DENIES NEEDS.
[2018-06-09 04:37] VITALS: BP 133/63
[2018-06-09 04:55] LABS: BASOPHILS 0.1 % (0-2); EOSINOPHILS 0.3 % (0-7); HEMATOCRIT 36.7 % (36.0-48.0); HEMOGLOBIN 12.4 g/dL (12-16); IMMATURE GRANULOCYTES 0.3 % (0-5); LYMPHOCYTES 18.3 % (15-50); MCHC 33.8 g/dL (31.0-37.0); MCV 94.6 fL (80.0-100.0); MEAN PLATELET VOLUME 9.2 fL (7.4-10.4); MONOCYTES 7.1 % (2-11); NEUTROPHILS 73.9 % (40-80); PLATELET COUNT 257 10x3/uL (130-400); RBC 3.88 10x6/uL (4.00-5.40); RDW 13.9 % (11.5-14.5)
[2018-06-09 05:02] LABS: WBC 10.8 10x3/uL (4.8-10.8)
[2018-06-09 05:13] LABS: ANION GAP 11.6 mmol/L (8-16); CALCIUM 8.5 mg/dL (8.5-10.1); CARBON DIOXIDE 29.4 mmol/L (21.0-32.0); CREATININE - SERUM 1.2 mg/dL (0.6-1.3)
[2018-06-09] MEDS ORDERED: ULTRAM50 MG PO (07:19)
--- NOTE | 2018-06-09 07:19 | NUR ---
PT REFUSED FINAL TREATMENT SHE IS HEADED HOME SHE CAN DO ONE THERE SHE SAYS
[2018-06-09] MEDS ORDERED: VISTARIL50 MG PO (07:20)
[2018-06-09] MEDS ORDERED: ZOFRAN ODT4 MG/UDTAB PO (07:20)
--- NOTE | 2018-06-09 08:15 | MORECARE ---
CASE MANAGEMENT DISCHARGE SUMMARY PATIENT: ARPITA MORGAN UNIT: [id number] ADM DATE: 06/07/18 AGE: 63 : 53 SEX: F ROOM/BED: D.2227 AUTHOR: TAMIKA FARRAR PHYSICIAN: REFERRING PHYSICIAN: MATIAS HAIDER DO DATE OF SERVICE: 06/09/18 Discharge Plan Patient Name: ARPITA MORGAN Facility: [facility]:[place] : 1955 Planned Disposition: Home Anticipated Discharge Date: 06/09/18 Discharge Date: Expected LOS: 2 Initial Reviewer: [email or web address] Initial Review Date: 06/09/2018 Generated: 06/09/18 9:15 am DCPIA - Discharge Planning Initial Assessment Updated by [email or web address]: Dania Power on 06/09/18 8:14 am * Is the patient Alert and Oriented? Yes * PCP Dr. Burgess * Pharmacy [facility] * Preadmission Environment Home with Family * ADLs Independent * Equipment None * List name and contact numbers for known caregivers / representatives who currently or will assist patient after discharge: Luis M Morgan - cutkobn - [phone] * Verbal permission to speak to the caregivers and representatives has been obtained from the patient. Yes * Community resources currently utilized None * Additional services required to return to the preadmission environment? No * Can the patient safely return to the preadmission environment? Yes * Has this patient been hospitalized within the prior 30 days at any hospital? No Patient Name: ARPITA MORGAN Page [id number] at 0815 All edits/amendments must be made on the electronic document DICTATION DATE: 06/09/18814 MEDICAL RECORDS LIBRARY PROFESSOR: LEVI 06/09/18814 RPT#: [id number] DC DATE: STATUS: ADM IN [facility] [address] [place] [address] END OF REPORT
--- NOTE | 2018-06-09 08:40 | NUR ---
PT SITTING UP ON SIDE OF BED, ANTICIPATING D/C. NO ACUTE DISTRESS NOTED. SLING NOTED TO LEFT ARM. INCISION TO LEFT SHOULDER C/D/I NO REDNESS OR EDEMA OR DRAINAGE. REPORTS PAIN 9/10 AT THIS TIME. TO ADMINISTER PRN PAIN MEDICATION PRESCRIBED. DENIES FURTHER NEEDS AT THIS TIME. CL WITHIN REACH.
--- NOTE | 2018-06-09 09:15 | NUR ---
PAIN MED ADMINISTERED PER ORDERS. D/C PAPERWORK PROVIDED WITH PRESCRIPTIONS AND FOLLOW UP APPT. DENIES QUESTIONS AT THIS TIME. TAKEN OUT TO PRVT VEHICLE WITH PERSONAL BELONGINGS VIA W/C
[2018-06-09 09:25] VITALS: BP 141/75
== END 2018-06-09 09:15 | disposition home or self-care (01) | DRG 483 ==
LOC: D.SDCHOLD 06-07 04:55 → D.MS 06-07 11:00
PROVIDERS: Anesthesiology; Internal Medicine Nephrology; ADMIT Orthopaedic Surgery; ATTEND Orthopaedic Surgery
PROC: 0RRK0JZ Replacement of Left Shoulder Joint with Synthetic Substitute, Open Approach (ICD-10-PCS; principal; 2018-06-07 07:15)
DX: M19.012 Primary osteoarthritis, left shoulder (principal); J44.0 Chronic obstructive pulmonary disease with (acute) lower respiratory infection; E87.6 Hypokalemia; I10 Essential (primary) hypertension

== ENCOUNTER 2018-07-14 13:52 | Inpatient (IN) | payer MEDICAID ==
[~2018-07-14 13:52] MED LIST changes: +ALBUTEROL2.5 MG/3 M INH; +BISOPROLOL-HCT1 EAC1 PO; +LIPITOR20 MG PO; +OMEPRAZOLE20 M1 PO; +VISTARIL50 MG PO; +ZOFRAN ODT4 MG/UDTAB PO
[2018-07-14 15:59] LABS: BASOPHILS 0.2 % (0-2); EOSINOPHILS 0.7 % (0-7); HEMATOCRIT 36.8 % (36.0-48.0); HEMOGLOBIN 13.3 g/dL (12-16); IMMATURE GRANULOCYTES 0.5 % (0-5); LYMPHOCYTES 17.9 % (15-50); MCHC 36.1 g/dL (31.0-37.0); MCV 88.5 fL (80.0-100.0); MONOCYTES 4.8 % (2-11); NEUTROPHILS 75.9 % (40-80); PLATELET COUNT 279 10x3/uL (130-400); RBC 4.16 10x6/uL (4.00-5.40); RDW 13.5 % (11.5-14.5); WBC 10.9 10x3/uL (4.8-10.8)
[2018-07-14 16:17] LABS: ALBUMIN 3.4 g/dL (3.4-5.0); ANION GAP 9.9 mmol/L (8-16); BILIRUBIN - TOTAL 0.33 mg/dL (0.2-1.3); CARBON DIOXIDE 31.4 mmol/L (21.0-32.0); CREATININE - SERUM 1.1 mg/dL (0.6-1.3)
[2018-07-14 16:22] LABS: POTASSIUM - SERUM 2.3 mmol/L (3.5-5.1)
[2018-07-14 17:21] LABS: APPEARANCE CLEAR (CLEAR); BILIRUBIN NEGATIVE (NEGATIVE); COLOR STRAW (YELLOW); GLUCOSE NEGATIVE (NEGATIVE); KETONE NEGATIVE (NEGATIVE); NITRITE NEGATIVE (NEGATIVE); PROTEIN NEGATIVE (NEGATIVE); SPECIFIC GRAVITY 1.005 (1.005-1.020); UROBILINOGEN NORMAL (NORMAL)
[2018-07-14 18:04] LABS: MAGNESIUM - SERUM 1.7 mg/dL (1.8-2.4); THYROID STIMULATING HORMONE 0.67 uIU/mL (0.36-3.74)
[2018-07-14 20:52] VITALS: BP 120/70
[2018-07-14 23:44] VITALS: BMI 31.6
[2018-07-15 01:02] VITALS: BP 124/63
[2018-07-15 04:54] VITALS: BP 116/83
[2018-07-15 07:59] VITALS: BP 123/71
[2018-07-15 10:07] LABS: BASOPHILS 0.1 % (0-2); EOSINOPHILS 0 % (0-7); HEMATOCRIT 33.2 % (36.0-48.0); HEMOGLOBIN 11.7 g/dL (12-16); IMMATURE GRANULOCYTES 0.4 % (0-5); LYMPHOCYTES 11.8 % (15-50); MCH 31.6 pg (26.0-34.0); MCHC 35.2 g/dL (31.0-37.0); MCV 89.7 fL (80.0-100.0); MEAN PLATELET VOLUME 9.7 fL (7.4-10.4); MONOCYTES 2.7 % (2-11); PLATELET COUNT 274 10x3/uL (130-400); RDW 13.5 % (11.5-14.5); WBC 12.1 10x3/uL (4.8-10.8)
[2018-07-15 10:18] LABS: ALBUMIN 2.9 g/dL (3.4-5.0); ANION GAP 14.9 mmol/L (8-16); BILIRUBIN - TOTAL 0.23 mg/dL (0.2-1.3); CALCIUM 8.1 mg/dL (8.5-10.1); CARBON DIOXIDE 25.2 mmol/L (21.0-32.0); CREATININE - SERUM 1.2 mg/dL (0.6-1.3); MAGNESIUM - SERUM 1.4 mg/dL (1.8-2.4); POTASSIUM - SERUM 3.1 mmol/L (3.5-5.1); PROTEIN - SERUM 6.2 g/dL (6.4-8.2)
[2018-07-15 11:24] VITALS: BP 115/54
[2018-07-15 14:03] LABS: CKMB 4.3 U/L (0.0-3.6); CREATINE KINASE 167 UL (21-215); TROPONIN-I < 0.017 ng/mL (0.000-0.060)
[2018-07-15 16:17] VITALS: BP 123/56
[2018-07-15 19:30] LABS: CKMB 6.1 U/L (0.0-3.6); CREATINE KINASE 211 UL (21-215); TROPONIN-I < 0.017 ng/mL (0.000-0.060)
[2018-07-15 20:00] VITALS: BP 116/61
[2018-07-16] VITALS: BP 100/59
[2018-07-16 01:48] LABS: CKMB 6.7 U/L (0.0-3.6); CREATINE KINASE 217 UL (21-215); TROPONIN-I < 0.017 ng/mL (0.000-0.060)
[2018-07-16 03:00] VITALS: BP 131/70
[2018-07-16 05:21] LABS: BASOPHILS 0.1 % (0-2); EOSINOPHILS 0.2 % (0-7); HEMATOCRIT 32.8 % (36.0-48.0); HEMOGLOBIN 11.2 g/dL (12-16); IMMATURE GRANULOCYTES 0.6 % (0-5); MCH 31.2 pg (26.0-34.0); MCHC 34.1 g/dL (31.0-37.0); MCV 91.4 fL (80.0-100.0); MEAN PLATELET VOLUME 8.9 fL (7.4-10.4); MONOCYTES 6.3 % (2-11); NEUTROPHILS 64.8 % (40-80); PLATELET COUNT 229 10x3/uL (130-400); RBC 3.59 10x6/uL (4.00-5.40); RDW 13.9 % (11.5-14.5); WBC 9.6 10x3/uL (4.8-10.8)
[2018-07-16 05:43] LABS: ANION GAP 10.6 mmol/L (8-16); BILIRUBIN - TOTAL 0.1 mg/dL (0.2-1.3); CALCIUM 8.1 mg/dL (8.5-10.1); CARBON DIOXIDE 28.8 mmol/L (21.0-32.0); CREATININE - SERUM 1.1 mg/dL (0.6-1.3); MAGNESIUM - SERUM 1.7 mg/dL (1.8-2.4); POTASSIUM - SERUM 3.4 mmol/L (3.5-5.1)
[2018-07-16 09:50] VITALS: BP 136/69
[2018-07-16 09:57] LABS: MAGNESIUM - SERUM 1.6 mg/dL (1.8-2.4); POTASSIUM - SERUM 3.5 mmol/L (3.5-5.1)
== END 2018-07-16 12:45 | disposition home or self-care (01) | DRG 312 ==
LOC: D.ER 13:52 → D.EDHOLD 17:40 → D.MS 17:53
PROVIDERS: Emergency Medicine; Family Medicine; ADMIT Family Medicine
DX: R55 Syncope and collapse (principal); E87.6 Hypokalemia; E86.0 Dehydration; I10 Essential (primary) hypertension; J44.9 Chronic obstructive pulmonary disease, unspecified

== ENCOUNTER 2019-04-03 23:31 | Inpatient (IN) | payer MEDICARE, OTHER ==
[~2019-04-03] VITALS: Ht 165.1 cm; Wt 89.4 kg
[2019-04-04] VITALS (8 sets, daily range): BP systolic 109–138; BP diastolic 43–69; Ht 165.1 cm; Wt 89.4 kg
[2019-04-04] MEDS ORDERED: RED CLOVER (00:11)
[2019-04-04] MEDS ORDERED: GLUCOSAMINE HC500 MG PO (00:12)
[2019-04-04] MEDS ORDERED: [UNRECOGNIZED DRUG - OTHER] (00:12)
[2019-04-04] MEDS ORDERED: POTASSIUM99 M1 PO (00:13)
[2019-04-04] MEDS ORDERED: BISOPROLOL-HCT1 EAC1 PO (00:14)
[2019-04-04 01:26] LABS: BASOPHILS 0.1 % (0-2); EOSINOPHILS 0.5 % (0-7); HEMATOCRIT 40.1 % (36.0-48.0); HEMOGLOBIN 13.7 g/dL (12-16); IMMATURE GRANULOCYTES 0.5 % (0-5); LYMPHOCYTES 11.3 % (15-50); MCH 31.3 pg (26.0-34.0); MCHC 34.2 g/dL (31.0-37.0); MCV 91.6 fL (80.0-100.0); MEAN PLATELET VOLUME 8.7 fL (7.4-10.4); MONOCYTES 4.8 % (2-11); NEUTROPHILS 82.8 % (40-80); PLATELET COUNT 257 10x3/uL (130-400); RBC 4.38 10x6/uL (4.00-5.40); RDW 12.6 % (11.5-14.5); WBC 14.9 10x3/uL (4.8-10.8)
[2019-04-04 01:39] LABS: ANION GAP 10.1 mmol/L (8-16); CALCIUM 8.6 mg/dL (8.5-10.1); CARBON DIOXIDE 29.3 mmol/L (21.0-32.0); CREATININE - SERUM 1.2 mg/dL (0.6-1.3); POTASSIUM - SERUM 3.4 mmol/L (3.5-5.1)
[2019-04-04 01:52] LABS: ALBUMIN 3.6 g/dL (3.4-5.0); BILIRUBIN - TOTAL 0.45 mg/dL (0.2-1.3); C-REACTIVE PROTEIN 1.8 mg/dL (0.0-0.9); PROTEIN - SERUM 7.4 g/dL (6.4-8.2)
[2019-04-04 01:58] LABS: APPEARANCE CLEAR (CLEAR); BILIRUBIN NEGATIVE (NEGATIVE); COLOR YELLOW (YELLOW); GLUCOSE NEGATIVE (NEGATIVE); KETONE NEGATIVE (NEGATIVE); NITRITE NEGATIVE (NEGATIVE); PROTEIN NEGATIVE (NEGATIVE); UROBILINOGEN NORMAL (NORMAL)
[2019-04-04 02:09] LABS: UDS - AMPHET NEGATIVE QUAL (NEGATIVE); UDS - BARB NEGATIVE QUAL (NEGATIVE); UDS - BENZO NEGATIVE QUAL (NEGATIVE); UDS - COCAINE NEGATIVE QUAL (NEGATIVE); UDS - OPIATE NEGATIVE QUAL (NEGATIVE); UDS - PCP NEGATIVE QUAL (NEGATIVE); UDS - THC NEGATIVE QUAL (NEGATIVE)
--- NOTE | 2019-04-04 02:41 | NUR ---
resting in room queitly at this time. requested something for pain. notified
--- NOTE | 2019-04-04 04:42 | NUR ---
RESTING IN ROOM QUIETLY AT THIS TIME. AT BEDSIDE. CUP OF H20 GIVEN
--- NOTE | 2019-04-04 05:59 | NUR ---
RESTING IN ROOM QUIETLY AT THIS TIME. RESP EVEN AND UNLABORED CALL LIGHT IN REACH
--- NOTE | 2019-04-04 08:57 | NUR ---
GAVE 0.5MG OF DILAUDID FOR PAIN LEVEL OF 10/10. PT DENIES ANY OTHER NEEDS AT THIS TIME. [facility] NAD NOTED,W ILL CONTINUE TO MONITOR.
--- NOTE | 2019-04-04 17:30 | NUR ---
HELPED PT ON AND OFF BEDPAN. PT DENIES ANY OTHER NEEDS AT THIS TIME. CALL LIGHT IN REACH, NAD NOTED, WILL CONTINUE TO MONITOR.
--- NOTE | 2019-04-04 17:51 | NUR ---
GAVE 0.5MG OF DILAUDID FOR PAIN LEVEL OF 9/10. PT DENIES ANY OTHER NEEDS AT THIS TIME. CALL LIGHT IN REACH. NAD NOTED.
--- NOTE | 2019-04-04 21:00 | NUR ---
EVENING ROUNDS COMPLETED. VSS, AAOX4, NO S/S OF RT DISTRESS. PT DENIES ANY NEED FOR PAIN. PT ON BEDREST. WILL CPOC.
--- NOTE | 2019-04-04 22:00 | NUR ---
PT PLAYING GAMES ON HER PHONE. NO C/O AT THIS TIME. SHE HAS BEEN UP TO THE BSC AND FOLLOWS HER WEIGHT BEARING STATUS OF NON WT BEARING LLE VERY WELL. SHE KNOWS HOW TO USE THE RIGHT FOOT TO PIVOT. PT ASKED FOR WIPES TO WASH HER HANDS WITH AND THIS WAS BROUGHT TO THE PT.
[2019-04-05 00:04] VITALS: BP 129/66
--- NOTE | 2019-04-05 00:24 | NUR ---
PT RESTING QUIETLY. SHE HAS NO C/O AT THIS TIME. A GLASS OF ICE WAS DELIVERED TO THE PT PER REQUEST.
[2019-04-05 07:55] LABS: BASOPHILS 0.1 % (0-2); EOSINOPHILS 0.8 % (0-7); HEMATOCRIT 39.4 % (36.0-48.0); HEMOGLOBIN 13.5 g/dL (12-16); IMMATURE GRANULOCYTES 0.2 % (0-5); LYMPHOCYTES 15.7 % (15-50); MCH 31.4 pg (26.0-34.0); MCHC 34.3 g/dL (31.0-37.0); MCV 91.6 fL (80.0-100.0); MEAN PLATELET VOLUME 9.2 fL (7.4-10.4); MONOCYTES 6.8 % (2-11); NEUTROPHILS 76.4 % (40-80); PLATELET COUNT 246 10x3/uL (130-400); RDW 12.8 % (11.5-14.5); WBC 11.3 10x3/uL (4.8-10.8)
[2019-04-05 08:00] VITALS: BP 147/72
[2019-04-05 08:18] LABS: ALBUMIN 3.3 g/dL (3.4-5.0); ANION GAP 9.4 mmol/L (8-16); BILIRUBIN - TOTAL 0.46 mg/dL (0.2-1.3); CALCIUM 8.9 mg/dL (8.5-10.1); CARBON DIOXIDE 31.5 mmol/L (21.0-32.0); POTASSIUM - SERUM 3.9 mmol/L (3.5-5.1); PROTEIN - SERUM 6.9 g/dL (6.4-8.2)
[2019-04-05 12:31] VITALS: BP 122/68
--- NOTE | 2019-04-05 13:57 | NUR ---
GAVE 0.5MG OF DILAUDID FOR PAIN LEVEL OF 9/10. BEDSIDE COMMODE EMPTIED. PT DENIES ANY OTHER NEEDS AT THIS TIME, CALL LIGHT IN REACH, NAD NOTED, WILL CONTINUE TO MONITOR.
--- NOTE | 2019-04-05 15:30 | NUR ---
PT HAD AGREED TO TAKE BED BATH. THEN WHEN THIS NURSE WENT TO ASK PT IF SHE WAS READY TO GET BATH, PT STATES " LETS JUST PUT IT OFF, BECAUSE I WILL BE GOING HOME TOMORROW".
[2019-04-05 16:37] VITALS: BP 113/58
[2019-04-05 19:45] VITALS: BP 116/60
[2019-04-06 01:39] VITALS: BP 109/65
--- NOTE | 2019-04-06 04:22 | NUR ---
LYING IN BED WITH EYES CLOSED. NO SIGNS OR SYMPTOMS OF DISTRESS NOTED. UP WITH ASSIST TO RESTROOM. USES BEDSIDE COMMODE. CONTINENT OF BOWELL AND BLADDER. STATES LAST BOWELL MOVEMENT WAS 04/05/2019. BOWELL SOUNDS ACTIVE x4. ABDOMEN SOFT TO PALPATIONS. PRN PAIN MEDICATION GIVEN FOR 10/10 PAIN LEVEL. NO COMPLAINTS OF PAIN AT THIS TIME. PT IS ON ROOM AIR. RESPIRATIONS EVEN AND UNLABORED. PT ADVISED TO CALL FOR HELP WHEN GETTING TO AND FROM THE BED. BED INI LOWEST POSITION AND CALL LIGHT IS WITHIN REACH. WILL CONTINUE TO MONITOR.
[2019-04-06 05:30] VITALS: BP 134/65
[2019-04-06 06:54] LABS: BASOPHILS 0.1 % (0-2); EOSINOPHILS 1.2 % (0-7); HEMATOCRIT 37.5 % (36.0-48.0); IMMATURE GRANULOCYTES 0.3 % (0-5); LYMPHOCYTES 19.9 % (15-50); MCH 31.1 pg (26.0-34.0); MCHC 34.7 g/dL (31.0-37.0); MCV 89.7 fL (80.0-100.0); MEAN PLATELET VOLUME 9.2 fL (7.4-10.4); MONOCYTES 6.2 % (2-11); NEUTROPHILS 72.3 % (40-80); PLATELET COUNT 239 10x3/uL (130-400); RBC 4.18 10x6/uL (4.00-5.40); RDW 12.8 % (11.5-14.5); WBC 9.3 10x3/uL (4.8-10.8)
[2019-04-06 07:01] LABS: ALBUMIN 3.2 g/dL (3.4-5.0); BILIRUBIN - TOTAL 0.59 mg/dL (0.2-1.3); CALCIUM 8.7 mg/dL (8.5-10.1); CARBON DIOXIDE 31.5 mmol/L (21.0-32.0); CREATININE - SERUM 1.1 mg/dL (0.6-1.3); POTASSIUM - SERUM 3.5 mmol/L (3.5-5.1); PROTEIN - SERUM 6.4 g/dL (6.4-8.2)
--- NOTE | 2019-04-06 07:26 | NUR ---
REPORT RECEIVED. WILL CONTINUE WITH POC. PT CURRENTLY LYING SEMI FOWLERS. CALL LIGHT W/I REACH. PT IS ASLEEP WITH EYES CLOSED AT THIS TIME. NO S/S OF DISTRESS NOTED. RR EVEN AND UNLABORED ON RA. R.FOR PIV SALINE LOCKED. WILL CTM.
[2019-04-06 08:00] VITALS: BP 125/73
[2019-04-06 12:03] VITALS: BP 128/71
--- NOTE | 2019-04-06 13:57 | MORECARE ---
CASE MANAGEMENT DISCHARGE SUMMARY PATIENT: ARPITA MORGAN UNIT: [id number] ADM DATE: 04/04/19 AGE: 63 : 53 SEX: F ROOM/BED: D.1209 AUTHOR: TAMIKA FARRAR PHYSICIAN: REFERRING PHYSICIAN: ISELA HUNTER MD DATE OF SERVICE: 04/06/19 Discharge Plan Patient Name: ARPITA MORGAN Facility: [facility]:[place] : 1955 Planned Disposition: Home Anticipated Discharge Date: 04/07/19 Discharge Date: Expected LOS: 3 Initial Reviewer: [email or web address] Initial Review Date: 04/04/2019 Generated: 04/06/19 2:56 pm DCPIA - Discharge Planning Initial Assessment Updated by [email or web address]: Nereyda Majano on 04/06/19 1:53 pm * Is the patient Alert and Oriented? Yes * PCP Dr. Burgess * Pharmacy [facility] * Preadmission Environment Home with Family * ADLs Independent * Equipment Cane Nebulizer Rolling Walker * List name and contact numbers for known caregivers / representatives who currently or will assist patient after discharge: Luis M Morgan - [facility] - [phone] * Verbal permission to speak to the caregivers and representatives has been obtained from the patient. Yes * Community resources currently utilized None * Additional services required to return to the preadmission environment? No * Can the patient safely return to the preadmission environment? Yes * Has this patient been hospitalized within the prior 30 days at any hospital? No Coverage Notice Reviewer: [email or web address] - Nereyda Majano Notice Issued Date-Time: 04/06/2019 11:35 Notice Type: IM Discharge Notice Notice Delivered To: Relationship to Patient: Bailing Machine Operator Name: Delivery Method: HAND - Hand Delivered Emily Days: Prior Verbal Notification: Recipient Understood Notice: Yes Recipient Signature: Yes Med Rec Note Co-signed by Attending: Coverage Notice Comment: DC IMM delivered, explained, signed by the patient, and placed in his chart. Signed form also left with patient. Nereyda Majano RN , CCM Patient Name: ARPITA MORGAN Page [phone] at 1357 All edits/amendments must be made on the electronic document DICTATION DATE: 04/06/19 1356 PERIOPERATIVE TECH: DM 04/06/19 1356 RPT#: [id number] DC DATE: STATUS: ADM IN [facility] [address] [place] [address] END OF REPORT
--- NOTE | 2019-04-06 14:07 | MORECARE ---
CASE MANAGEMENT DISCHARGE SUMMARY PATIENT: ARPITA MORGAN UNIT: [id number] ADM DATE: 04/04/19 AGE: 63 : 53 SEX: F ROOM/BED: D.1209 AUTHOR: LENI,DOC PHYSICIAN: REFERRING PHYSICIAN: ISELA HUNTER MD DATE OF SERVICE: 04/06/19 Discharge Plan Patient Name: ARPITA MORGAN Facility: [facility]:[place] : 1955 Planned Disposition: Home Anticipated Discharge Date: 04/07/19 Discharge Date: Expected LOS: 3 Initial Reviewer: [email or web address] Initial Review Date: 04/04/2019 Generated: 04/06/19 3:06 pm DCP- Discharge Planning Updated by [email or web address]: Nereyda Majano on 04/06/19 1:[address] DC PLAN: Return home with . ANTICIPATED DC NEEDS: Refused rehab and home health. CM met with patient to complete initial dc planning assessment. CM educated patient on the CM role and verbal consent given by patient to complete assessment. CM verified patient's address, phone number, and emergency contact phone numbers. Patient lives at home with her and reports she is independent. CM spoke to OT/PT and they feel patient is safe to dc home. Stated she ambulated on unit household distance. At discharge patient plans to return home and feels this is a safe discharge. CM discussed availability of home health, rehab services, and medical equipment. Patient denied known discharge needs at this time and refused HH. Transportation provider at discharge will be her . CM will continue to follow and will assist as needed with dc plans/needs. Nereyda Majano RN, [facility] DCPIA - Discharge Planning Initial Assessment Updated by [email or web address]: Nereyda Majano on 04/06/19 1:53 pm * Is the patient Alert and Oriented? Yes * PCP Dr. Burgess * Pharmacy [facility] * Preadmission Environment Home with Family * ADLs Independent * Equipment Cane Nebulizer Rolling Walker * List name and contact numbers for known caregivers / representatives who currently or will assist patient after discharge: Luis M Morgan - [facility] - [phone] * Verbal permission to speak to the caregivers and representatives has been obtained from the patient. Yes * Community resources currently utilized None * Additional services required to return to the preadmission environment? No * Can the patient safely return to the preadmission environment? Yes * Has this patient been hospitalized within the prior 30 days at any hospital? No Coverage Notice Reviewer: [id number] - Nereyda Majano Notice Issued Date-Time: 04/06/2019 11:35 Notice Type: IM Discharge Notice Notice Delivered To: Relationship to Patient: Chemical Applicator Name: Delivery Method: HAND - Hand Delivered Emily Days: Prior Verbal Notification: Recipient Understood Notice: Yes Recipient Signature: Yes Med Rec Note Co-signed by Attending: Coverage Notice Comment: DC IMM delivered, explained, signed by the patient, and placed in his chart. Signed form also left with patient. Nereyda Majano RN , [facility] Last DP export: 04/06/19 12:57 pm Patient Name: ARPITA MORGAN Page [phone] at 1407 All edits/amendments must be made on the electronic document DICTATION DATE: 04/06/19 1406 WASTE PICKER: LEVI 04/06/19 1406 RPT#: [id number] DC DATE: STATUS: ADM IN [facility] [address] [place] [address] END OF REPORT
--- NOTE | 2019-04-06 14:53 | NUR ---
NUTRITION F/U PT TOLERATING AHA DIET. PO INTAKE VARIES FROM 25 TO 100% RECENT MEALS. PT STATES PAIN IS A FACTOR IN HOW MUCH SHE FEELS LIKE EATING. WILL CONTINUE TO PROVIDE DIET, MONITOR PO INTAKE. RD FOLLOWING
[2019-04-06 16:17] VITALS: BP 111/66
--- NOTE | 2019-04-06 16:37 | NUR ---
PT CURRENTLY SITTING ON EDGE OF BED. CALL LIGHT W/I REACH. NO S/S OF DISTRESS NOTED AND PT DENIES ANY NEEDS. WILL CTM.
[2019-04-06 20:02] VITALS: BP 109/68
--- NOTE | 2019-04-06 21:20 | NUR ---
EVENING ROUNDS COMPLETED. VSS, AAOX4, NO S/S OF RT DISTRESS. ASSIST PT TO THE REST ROOM. PT STATES SHE IS FEELING BETTER TODAY AND SHE IS READY TO GO HOME. PT DENIES ANY FURTHER NEEDS AT THIS TIME. WILL CPOC.
[2019-04-07 01:08] VITALS: BP 133/66
[2019-04-07 06:05] VITALS: BP 111/56
[2019-04-07 07:06] LABS: BASOPHILS 0.2 % (0-2); EOSINOPHILS 0.9 % (0-7); HEMATOCRIT 38.6 % (36.0-48.0); HEMOGLOBIN 13.7 g/dL (12-16); IMMATURE GRANULOCYTES 0.3 % (0-5); LYMPHOCYTES 18.2 % (15-50); MCH 31.3 pg (26.0-34.0); MCHC 35.5 g/dL (31.0-37.0); MCV 88.1 fL (80.0-100.0); MONOCYTES 6.5 % (2-11); NEUTROPHILS 73.9 % (40-80); PLATELET COUNT 254 10x3/uL (130-400); RBC 4.38 10x6/uL (4.00-5.40); RDW 12.6 % (11.5-14.5); WBC 10.1 10x3/uL (4.8-10.8)
[2019-04-07 07:25] LABS: ALBUMIN 3.3 g/dL (3.4-5.0); ANION GAP 9.1 mmol/L (8-16); BILIRUBIN - TOTAL 0.57 mg/dL (0.2-1.3); CALCIUM 8.9 mg/dL (8.5-10.1); CARBON DIOXIDE 32.1 mmol/L (21.0-32.0); CREATININE - SERUM 1.1 mg/dL (0.6-1.3); POTASSIUM - SERUM 3.2 mmol/L (3.5-5.1); PROTEIN - SERUM 7.2 g/dL (6.4-8.2)
--- NOTE | 2019-04-07 09:00 | NUR ---
ALERT AND ORIENTED X4. WITH PERCOCET GIVEN PRON FOR PUBIC FRACTURE PRN. UP ADLIB AND DENIES ANY HX. OF FALLS. IV TO RT. F/A S/L. LUNGS CTA AND HRRR. ABDOMEN SOFT WITH BS NOTED. POTASSIUM REPLACED PER PROTOCOL. ENCOURAGED TO USE CALL LIGHT FOR ASSIST.
[2019-04-07 09:32] VITALS: BP 106/64
--- NOTE | 2019-04-07 11:53 | NUR ---
OT NOTE: PT IS ADHERING TO WT BEARING STATUS. PT IS DOING VERY WELL WITH MOBILITY AND SELF CARE TASKS. PT COMPLETED BED MOB TASKS WITH SPV. PT COMPLETED SIT TO STAND WITH SPV. PT COMPLETED BUE AROM EXS AT EOB. [phone] THANK YOU, TARUN PASTRANA
[2019-04-07 12:20] VITALS: BP 132/60
[2019-04-07 16:00] VITALS: BP 124/67
[2019-04-07] MEDS ORDERED: PERCOCET 10-321 EAC1 PO (16:37)
--- NOTE | 2019-04-07 17:30 | NUR ---
IV DISCONTINUED AND VERBALIZED UNDERSTANDING OF DISCHARGE INSTRUCTIONS. STABLE AT TIME OF DISCHARGE WITH RX GIVEN
--- NOTE | 2019-04-08 11:55 | MORECARE ---
CASE MANAGEMENT DISCHARGE SUMMARY PATIENT: ARPITA MORGAN UNIT: [id number] ADM DATE: 04/04/19 AGE: 63 : 53 SEX: F ROOM/BED: D.1209 AUTHOR: LENI,DOC PHYSICIAN: REFERRING PHYSICIAN: ISELA HUNTER MD DATE OF SERVICE: 04/08/19 Discharge Plan Patient Name: ARPITA MORGAN Facility: [facility]:[place] : 1955 Planned Disposition: Home Anticipated Discharge Date: 04/07/19 Discharge Date: 04/07/2019 Expected LOS: 3 Initial Reviewer: [email or web address] Initial Review Date: 04/04/2019 Generated: 04/08/19 12:55 pm DCP- Discharge Planning Updated by [email or web address]: Nereyda Majano on 04/06/19 1:[address] DC PLAN: Return home with . ANTICIPATED DC NEEDS: Refused rehab and home health. CM met with patient to complete initial dc planning assessment. CM educated patient on the CM role and verbal consent given by patient to complete assessment. CM verified patient's address, phone number, and emergency contact phone numbers. Patient lives at home with her and reports she is independent. CM spoke to OT/PT and they feel patient is safe to dc home. Stated she ambulated on unit household distance. At discharge patient plans to return home and feels this is a safe discharge. CM discussed availability of home health, rehab services, and medical equipment. Patient denied known discharge needs at this time and refused HH. Transportation provider at discharge will be her . CM will continue to follow and will assist as needed with dc plans/needs. Nereyda Majano RN, [facility] DCPIA - Discharge Planning Initial Assessment Updated by [id number]: Nereyda Majano on 04/06/19 1:53 pm * Is the patient Alert and Oriented? Yes * PCP Dr. Burgess * Pharmacy [facility] * Preadmission Environment Home with Family * ADLs Independent * Equipment Cane Nebulizer Rolling Walker * List name and contact numbers for known caregivers / representatives who currently or will assist patient after discharge: Luis M Morgan - [facility] - [phone] * Verbal permission to speak to the caregivers and representatives has been obtained from the patient. Yes * Community resources currently utilized None * Additional services required to return to the preadmission environment? No * Can the patient safely return to the preadmission environment? Yes * Has this patient been hospitalized within the prior 30 days at any hospital? No Coverage Notice Reviewer: [id number] - Nereyda Majano Notice Issued Date-Time: 04/06/2019 11:35 Notice Type: IM Discharge Notice Notice Delivered To: Relationship to Patient: Enrollment Specialist Name: Delivery Method: HAND - Hand Delivered Emily Days: Prior Verbal Notification: Recipient Understood Notice: Yes Recipient Signature: Yes Med Rec Note Co-signed by Attending: Coverage Notice Comment: DC IMM delivered, explained, signed by the patient, and placed in his chart. Signed form also left with patient. Nereyda Majano RN , CCM Last DP export: 04/06/19 1:07 pm Patient Name: ARPITA MORGAN Page [phone] at 1155 All edits/amendments must be made on the electronic document DICTATION DATE: 04/08/19 1155 MACHINE ERECTOR: LEVI 04/08/19 1155 RPT#: [id number] DC DATE:04/07/19 STATUS: DIS IN [facility] [address] [place] [address] END OF REPORT
== END 2019-04-07 17:30 | disposition home or self-care (01) | DRG 536 ==
LOC: D.ER 23:31 → D.M3 04-04 03:44
PROVIDERS: Family Medicine; ADMIT Family Medicine; ATTEND Family Medicine
DX: S32.592A Other specified fracture of left pubis, initial encounter for closed fracture (principal); E87.1 Hypo-osmolality and hyponatremia; F17.213 Nicotine dependence, cigarettes, with withdrawal; X58.XXXA Exposure to other specified factors, initial encounter; K76.0 Fatty (change of) liver, not elsewhere classified; M16.12 Unilateral primary osteoarthritis, left hip; E66.9 Obesity, unspecified; Z68.32 Body mass index [BMI] 32.0-32.9, adult; J44.9 Chronic obstructive pulmonary disease, unspecified; I10 Essential (primary) hypertension; E78.5 Hyperlipidemia, unspecified

== ENCOUNTER 2019-04-26 15:40 | Emergency (ER) | payer MEDICARE, OTHER ==
[~2019-04-26] VITALS: Ht 165.1 cm; Wt 92.7 kg
[~2019-04-26 15:40] MED LIST changes: +GLUCOSAMINE HC500 MG PO; +PERCOCET 10-321 EAC1 PO; +POTASSIUM99 M1 PO; +RED CLOVER; +[UNRECOGNIZED DRUG - OTHER]
[2019-04-26 16:00] VITALS: Ht 165.1 cm; Wt 92.7 kg
[2019-04-26 16:21] LABS: BASOPHILS 0.2 % (0-2); EOSINOPHILS 0.6 % (0-7); HEMATOCRIT 39.8 % (36.0-48.0); IMMATURE GRANULOCYTES 0.2 % (0-5); MCH 31.5 pg (26.0-34.0); MCHC 35.2 g/dL (31.0-37.0); MCV 89.4 fL (80.0-100.0); MEAN PLATELET VOLUME 8.8 fL (7.4-10.4); MONOCYTES 5.5 % (2-11); NEUTROPHILS 76.5 % (40-80); PLATELET COUNT 279 10x3/uL (130-400); RBC 4.45 10x6/uL (4.00-5.40); RDW 12.7 % (11.5-14.5); WBC 12.2 10x3/uL (4.8-10.8)
[2019-04-26 16:36] LABS: CALC OSMOLALITY 259 mosm/kg (275-300); CALCIUM 9.2 mg/dL (8.5-10.1); CARBON DIOXIDE 27.5 mmol/L (21.0-32.0); CHLORIDE - SERUM 92 mmol/L (98-107); CREATININE - SERUM 1.3 mg/dL (0.6-1.3); GLUCOSE 127 mg/dL (74-106); SODIUM 129 mmol/L (136-145); UREA NITROGEN 10 mg/dL (7-18); eGFR NON AFRICAN AMERICAN 44 mL/min (90-120)
[2019-04-26 16:44] LABS: ALBUMIN 3.7 g/dL (3.4-5.0); ALKALINE PHOSPHATASE 198 U/L (30-120); ALT (SGPT) 42 U/L (10-68); AMYLASE - SERUM 67 U/L (25-115); BILIRUBIN - TOTAL 0.58 mg/dL (0.2-1.3); LIPASE 225 U/L (73-393); PROTEIN - SERUM 7.7 g/dL (6.4-8.2)
[2019-04-26 16:45] LABS: TROPONIN-I < 0.017 ng/mL (0.000-0.060)
[2019-04-26 18:18] LABS: APPEARANCE CLEAR (CLEAR); BILIRUBIN NEGATIVE (NEGATIVE); COLOR YELLOW (YELLOW); GLUCOSE NEGATIVE (NEGATIVE); KETONE NEGATIVE (NEGATIVE); NITRITE NEGATIVE (NEGATIVE); PROTEIN NEGATIVE (NEGATIVE); UROBILINOGEN NORMAL (NORMAL)
[2019-04-26] MEDS ORDERED: HYDROCODON-ACE1 EA10 PO (20:52)
[2019-04-26 21:07] VITALS: BP 149/85
== END 2019-04-26 21:07 | disposition home or self-care (01) ==
LOC: D.ER 15:40
PROVIDERS: Family Medicine
DX: Z91.19 Patient's noncompliance with other medical treatment and regimen (principal); S32.509 Unspecified fracture of unspecified pubis; I10 Essential (primary) hypertension; J44.9 Chronic obstructive pulmonary disease, unspecified

== ENCOUNTER 2019-06-07 19:03 | Emergency (ER) | payer MEDICARE, OTHER ==
[~2019-06-07] VITALS: Ht 165.1 cm; Wt 92.7 kg
[~2019-06-07 19:03] MED LIST changes: +HYDROCODON-ACE1 EA10 PO
[2019-06-07 19:09] VITALS: Ht 165.1 cm; Wt 92.7 kg
[2019-06-07] MEDS ORDERED: VALIUM 2 MG TAB2 MG PO (19:15)
[2019-06-07] MEDS ORDERED: VITAMIN D10000 UNI1 PO (19:16)
[2019-06-07] MEDS ORDERED: CALCIUM 600 +1 EAC3 PO (19:17)
[2019-06-07 19:48] LABS: BASOPHILS 0.1 % (0-2); EOSINOPHILS 1.4 % (0-7); HEMOGLOBIN 14.5 g/dL (12-16); IMMATURE GRANULOCYTES 0.5 % (0-5); LYMPHOCYTES 18.4 % (15-50); MCH 31.3 pg (26.0-34.0); MCHC 35.4 g/dL (31.0-37.0); MCV 88.4 fL (80.0-100.0); MEAN PLATELET VOLUME 8.8 fL (7.4-10.4); MONOCYTES 8.2 % (2-11); NEUTROPHILS 71.4 % (40-80); PLATELET COUNT 333 10x3/uL (130-400); RBC 4.64 10x6/uL (4.00-5.40); RDW 13.1 % (11.5-14.5); WBC 12.6 10x3/uL (4.8-10.8)
[2019-06-07 20:20] LABS: BILIRUBIN NEGATIVE (NEGATIVE); GLUCOSE NEGATIVE (NEGATIVE); KETONE NEGATIVE (NEGATIVE); NITRITE NEGATIVE (NEGATIVE); UROBILINOGEN NORMAL (NORMAL)
[2019-06-07 20:40] LABS: ALBUMIN 3.8 g/dL (3.4-5.0); ANION GAP 11.4 mmol/L (8-16); BILIRUBIN - TOTAL 0.46 mg/dL (0.2-1.3); CALCIUM 9.3 mg/dL (8.5-10.1); CARBON DIOXIDE 27.5 mmol/L (21.0-32.0); CREATININE - SERUM 1.2 mg/dL (0.6-1.3); PROTEIN - SERUM 7.6 g/dL (6.4-8.2)
[2019-06-07 21:11] LABS: POTASSIUM - SERUM 2.9 mmol/L (3.5-5.1)
[2019-06-07] MEDS ORDERED: HYDROCODON-ACE1 EA10 PO ×2 (21:18→21:22)
[2019-06-07 21:40] VITALS: BP 123/73
== END 2019-06-07 21:40 | disposition home or self-care (01) ==
LOC: D.ER 19:03
PROVIDERS: Emergency Medicine
DX: R42 Dizziness and giddiness (principal); E87.6 Hypokalemia; M54.5 Low back pain; I10 Essential (primary) hypertension; J44.9 Chronic obstructive pulmonary disease, unspecified; K21.9 Gastro-esophageal reflux disease without esophagitis

== ENCOUNTER 2019-06-17 19:58 | Emergency (ER) | payer MEDICARE, OTHER ==
[~2019-06-17] VITALS: Ht 165.1 cm; Wt 92.7 kg
[~2019-06-17 19:58] MED LIST changes: +CALCIUM 600 +1 EAC3 PO; +VALIUM 2 MG TAB2 MG PO; +VITAMIN D10000 UNI1 PO
[2019-06-17 20:12] VITALS: Ht 165.1 cm; Wt 92.7 kg
[2019-06-17] MEDS ORDERED: HYDROCODON-ACE1 EA10 PO (20:16)
[2019-06-17 20:56] LABS: BASOPHILS 0.1 % (0-2); EOSINOPHILS 0.6 % (0-7); HEMATOCRIT 39.9 % (36.0-48.0); HEMOGLOBIN 13.8 g/dL (12-16); IMMATURE GRANULOCYTES 0.6 % (0-5); LYMPHOCYTES 14.2 % (15-50); MCH 31.6 pg (26.0-34.0); MCHC 34.6 g/dL (31.0-37.0); MCV 91.3 fL (80.0-100.0); MEAN PLATELET VOLUME 8.9 fL (7.4-10.4); MONOCYTES 7.1 % (2-11); NEUTROPHILS 77.4 % (40-80); PLATELET COUNT 287 10x3/uL (130-400); RBC 4.37 10x6/uL (4.00-5.40); RDW 13.4 % (11.5-14.5); WBC 10.9 10x3/uL (4.8-10.8)
[2019-06-17 21:06] LABS: ANION GAP 11.3 mmol/L (8-16); CALCIUM 9.2 mg/dL (8.5-10.1); CARBON DIOXIDE 30.7 mmol/L (21.0-32.0); CREATININE - SERUM 1.2 mg/dL (0.6-1.3)
[2019-06-17 21:11] LABS: ALBUMIN 3.7 g/dL (3.4-5.0); BILIRUBIN - TOTAL 0.43 mg/dL (0.2-1.3); MAGNESIUM - SERUM 1.8 mg/dL (1.8-2.4); PROTEIN - SERUM 7.3 g/dL (6.4-8.2)
[2019-06-17 21:45] LABS: BILIRUBIN NEGATIVE (NEGATIVE); GLUCOSE NEGATIVE (NEGATIVE); KETONE NEGATIVE (NEGATIVE); NITRITE NEGATIVE (NEGATIVE); UROBILINOGEN NORMAL (NORMAL)
[2019-06-17 21:46] LABS: UDS - AMPHET NEGATIVE QUAL (NEGATIVE); UDS - BARB NEGATIVE QUAL (NEGATIVE); UDS - BENZO POSITIVE QUAL (NEGATIVE); UDS - COCAINE NEGATIVE QUAL (NEGATIVE); UDS - OPIATE POSITIVE QUAL (NEGATIVE); UDS - PCP NEGATIVE QUAL (NEGATIVE); UDS - THC NEGATIVE QUAL (NEGATIVE)
[2019-06-17 22:32] VITALS: BP 122/61
== END 2019-06-17 22:32 | disposition home or self-care (01) ==
LOC: D.ER 19:58
PROVIDERS: Emergency Medicine
DX: M54.5 Low back pain (principal); R07.81 Pleurodynia; W19.XXXA Unspecified fall, initial encounter; I10 Essential (primary) hypertension; E78.5 Hyperlipidemia, unspecified; J44.9 Chronic obstructive pulmonary disease, unspecified

== ENCOUNTER → 2019-07-03 09:42 | Outpatient (CLI) | payer MEDICARE, OTHER ==
[2019-06-17 20:12] VITALS: BMI 34.0
== END | disposition home or self-care (01) ==
LOC: D.MRI 09:42
PROVIDERS: ATTEND Orthopaedic Surgery
DX: M54.5 Low back pain (principal)

== ENCOUNTER 2019-08-13 13:43 | Emergency (ER) | payer MEDICARE, OTHER ==
[~2019-08-13] VITALS: Ht 165.1 cm; Wt 0.0 kg
[2019-08-13 13:55] VITALS: Ht 165.1 cm; Wt 0.0 kg
[2019-08-13] MEDS ORDERED: MUCINEX DM ER1 EAC1 PO (15:33)
[2019-08-13] MEDS ORDERED: VIBRAMYCIN 100100 MG PO (15:33)
[2019-08-13 16:35] VITALS: BP 121/81
== END 2019-08-13 16:00 | disposition home or self-care (01) ==
LOC: D.ER 13:43
DX: J06.9 Acute upper respiratory infection, unspecified (principal); R00.0 Tachycardia, unspecified; J44.9 Chronic obstructive pulmonary disease, unspecified; I10 Essential (primary) hypertension; E78.5 Hyperlipidemia, unspecified; R05 Cough; R09.89 Other specified symptoms and signs involving the circulatory and respiratory systems

== ENCOUNTER 2019-08-22 13:12 | Inpatient (IN) | payer MEDICARE, OTHER ==
[~2019-08-22] VITALS: Ht 165.1 cm; Wt 92.5 kg
[~2019-08-22 13:12] MED LIST changes: +MUCINEX DM ER1 EAC1 PO
[2019-08-22 13:45] VITALS: BP 108/67; BMI 34.0
--- NOTE | 2019-08-22 14:10 | NUR ---
SPOKE WITH RN AT DR SKELTON OFFICE WHO STATES OK FOR REGULAR DIET.
--- NOTE | 2019-08-22 14:12 | NUR ---
PATIENT ADMITTED TO ROOM 2232. ADMISSION COMPLETE. IV SITED TO RFA WITH ONE ATTEMPT WITH 22 GAUGE.
--- NOTE | 2019-08-22 14:27 | NUR ---
TAKEN FOR MRI.
--- NOTE | 2019-08-22 15:31 | NUR ---
PT TO MRI SUITE FOR MRI THORACIC AND LUMBAR SPINE. PT COMPLAINING OF LUMBAR PAIN AND WAS HAVING SPASMS IN HER LEGS. CALLED PATIENTS NURSE TO SEE IF SHE HAD ANY MEDS ORDERED THAT WOULD HELP HER GET THROUGH THE TESTS. NURSE GAVE PATIENT ATIVAN AND WE STARTED THE EXAM ON LUMBAR SINCE THAT IS WHERE MOST OF HER PAIN IS. PT CONSTANTLY MOVED DURING ENTIRE TEST AND DIDN'T WANT TO CONTINUE WITH THORACIC SPINE EXAM TODAY. WE WILL CHECK BACK TOMORROW AND SEE IF SHE IS WILLING TO DO IT.
[2019-08-22 17:05] LABS: BASOPHILS 0.2 % (0-2); EOSINOPHILS 0.8 % (0-7); HEMATOCRIT 40.8 % (36.0-48.0); HEMOGLOBIN 13.7 g/dL (12-16); IMMATURE GRANULOCYTES 0.2 % (0-5); LYMPHOCYTES 22.3 % (15-50); MCHC 33.6 g/dL (31.0-37.0); MCV 95.3 fL (80.0-100.0); MEAN PLATELET VOLUME 8.5 fL (7.4-10.4); NEUTROPHILS 69.5 % (40-80); PLATELET COUNT 292 10x3/uL (130-400); RBC 4.28 10x6/uL (4.00-5.40); RDW 13.8 % (11.5-14.5); WBC 8.9 10x3/uL (4.8-10.8)
[2019-08-22 17:18] LABS: INR 0.97 (0.85-1.17); PROTIME 12.8 SECONDS (11.6-15.0)
[2019-08-22 17:19] LABS: APTT 29.8 SECONDS (22.8-39.4)
[2019-08-22 17:22] LABS: ALBUMIN 3.4 g/dL (3.4-5.0); ANION GAP 10.4 mmol/L (8-16); BILIRUBIN - TOTAL 0.43 mg/dL (0.2-1.3); CALCIUM 9.2 mg/dL (8.5-10.1); CARBON DIOXIDE 29.2 mmol/L (21.0-32.0); CREATININE - SERUM 1.2 mg/dL (0.6-1.3); POTASSIUM - SERUM 3.6 mmol/L (3.5-5.1); PROTEIN - SERUM 6.7 g/dL (6.4-8.2)
[2019-08-22 17:47] VITALS: BP 109/65
--- NOTE | 2019-08-22 19:30 | NUR ---
PT LYING IN BED WITHOUT DISTRESS, AOX4. REQUESTING TO SIT UP ON SIDE OF BED. THIS NURSE AND NURSES AID ASSISTED PT TO EOB. TOLERATED WELL. IV RIGHT FA SL. PUREWICK IN PLACE. DENIES OTHER NEEDS AT THIS TIME. CL IN REACH, WILL CTM
[2019-08-22 20:00] VITALS: BP 113/54
--- NOTE | 2019-08-22 21:00 | NUR ---
ASSISTED PT BACK IN BED IN SUPINE POSITION. STATES SHE IS MOST COMFORTABLE LYING FLAT. PROVIDED ICE UPON REQUEST. DENIES OTHER NEEDS, WILL CTM
--- NOTE | 2019-08-22 23:20 | NUR ---
PROVIDED PT WITH ICE PACK FOR BACK, NORCO GIVEN FOR PAIN 09/05. STATES SHE IS MAINLY HAVING SPASMS IN LOWER BACK. EMPTIED 1100ML FROM PUREWICK. DENIES OTHER NEEDS. WILL CTM
[2019-08-23 04:00] VITALS: BP 99/50
[2019-08-23 07:24] LABS: BASOPHILS 0.3 % (0-2); EOSINOPHILS 1.4 % (0-7); HEMATOCRIT 40.8 % (36.0-48.0); HEMOGLOBIN 13.7 g/dL (12-16); IMMATURE GRANULOCYTES 0.3 % (0-5); MCH 31.9 pg (26.0-34.0); MCHC 33.6 g/dL (31.0-37.0); MCV 94.9 fL (80.0-100.0); MEAN PLATELET VOLUME 8.6 fL (7.4-10.4); MONOCYTES 9.3 % (2-11); NEUTROPHILS 64.7 % (40-80); PLATELET COUNT 282 10x3/uL (130-400); RDW 13.7 % (11.5-14.5)
[2019-08-23 07:27] LABS: WBC 6.6 10x3/uL (4.8-10.8)
--- NOTE | 2019-08-23 07:30 | NUR ---
AWAKE AND ALERT. ORIENTED X3. NO C/O AT THIS TIME. LUNGS ARE CLEAR BILATERALLY, NO COUGH NOTED. SKIN IS INTACT WITHOUT REDNESS. IV TO RIGHT FOREARM IS PATENT WITHOUT REDNESS AT INSERTION SITE. DENIES NEEDS.
[2019-08-23 08:00] VITALS: BP 127/40
[2019-08-23 08:07] LABS: ANION GAP 10.8 mmol/L (8-16); CALCIUM 9.1 mg/dL (8.5-10.1); CARBON DIOXIDE 28.6 mmol/L (21.0-32.0); CREATININE - SERUM 1.1 mg/dL (0.6-1.3); POTASSIUM - SERUM 3.4 mmol/L (3.5-5.1)
--- NOTE | 2019-08-23 09:30 | NUR ---
ATE ONLY A BITE OR TWO OF BREAKFAST. STATED IT WAS COLD AND SHE DIDN'T USUALLY EAT MUCH BREAKFAST. TOOK AM MEDS WITHOUT DIFFICUTLY. DENIES NEEDS.
[2019-08-23 12:00] VITALS: BP 112/67
--- NOTE | 2019-08-23 14:00 | NUR ---
RETURNED FROM MRI. A/O X3. NO C/O AT THIS TIME.
--- NOTE | 2019-08-23 14:37 | NUR ---
REQUESTED AND GIVNE ONE HYDROCODONE PO FOR C/O BACK PAIN LEVEL 7. WILL MONITOR.
[2019-08-23 14:51] VITALS: Ht 165.1 cm; Wt 92.5 kg
--- NOTE | 2019-08-23 15:09 | NUR ---
PATIENT TO MRI SUITE FOR MRI THORACIC SPINE THAT WAS ORDERED YESTERDAY BUT THE PATIENT QUIT DUE TO PAIN AND SPASMS DURING MRI LUMBAR SPINE. TODAY SHE WAS PREMEDICATED AND DID MUCH BETTER ON TODAYS STUDY. WHEN WE FINISHED THE THORACIC SPINE SHE WAS READY TO GET OUT OF THE SCANNER. THE MRI LUMBAR WAS REORDERED BY DR SKELTON AND WE ASKED HER IF SHE WAS READY TO REDO THAT ONE AND SHE TOLD US NO SHE WAS DONE. SHE ALSO SAID THAT DR SKELTON TOLD HER WHAT WAS WRONG IN HER LUMBAR SO HE HAD GOOD ENOUGH IMAGES. PATIENT RETURNED TO [facility] NOTIFIED [facility]A ABERNATHY APN. REPEAT LUMBAR SPINE WILL BE CANCELLED AT THIS TIME.
[2019-08-23 16:00] VITALS: BP 166/52; BP 96/48
--- NOTE | 2019-08-23 17:02 | NUR ---
RESTING QUIETLY IN BED. REPORTS SOME RELIEF AFTER HYDROCODONE GIVEN. WILL CONTINUE TO MONITOR.
--- NOTE | 2019-08-23 18:17 | NUR ---
ATE 75% OF SUPPER. DENIES NEEDS. REPOSITIONED IN BED FOR COMFORT. NO CHANGES NOTED.
--- NOTE | 2019-08-23 20:00 | NUR ---
PT LYING IN BED WITHOUT DISTRESS, AOX4. PROVIDED PT ICE PACK. REQUESTED AND GIVEN NORCO FOR PAIN 09/05. PUREWICK IN PLACE WITH CLEAR YELLOW URINE. DENIES OTHER NEEDS. CL IN REACH, WILL CTM
[2019-08-24 04:00] VITALS: BP 121/71
[2019-08-24 08:48] VITALS: BP 124/69
--- NOTE | 2019-08-24 11:13 | NUR ---
PT ALERT AND ORIENTED UPON ENTERING, AT BEDSIDE. NO MEDICATION, PT IS NPO FOR PROCEDURE TODAY. ASSESSMENT PERFORMED AT THIS TIME. DENIES ANY NEEDS AT THIS TIME. BED IN LOWEST POSITION, BED RAILS X2, CALL LIGHT WITHIN REACH. WILL CONTINUE TO MONITOR.
[2019-08-24 11:24] LABS: BASOPHILS 0.5 % (0-2); EOSINOPHILS 0.7 % (0-7); HEMOGLOBIN 14.7 g/dL (12-16); IMMATURE GRANULOCYTES 0.3 % (0-5); LYMPHOCYTES 20.9 % (15-50); MCH 31.8 pg (26.0-34.0); MCHC 33.4 g/dL (31.0-37.0); MCV 95.2 fL (80.0-100.0); MEAN PLATELET VOLUME 8.9 fL (7.4-10.4); MONOCYTES 6.5 % (2-11); NEUTROPHILS 71.1 % (40-80); PLATELET COUNT 280 10x3/uL (130-400); RBC 4.62 10x6/uL (4.00-5.40); RDW 13.6 % (11.5-14.5); WBC 7.5 10x3/uL (4.8-10.8)
[2019-08-24 11:38] LABS: ALBUMIN 3.9 g/dL (3.4-5.0); ANION GAP 10.6 mmol/L (8-16); BILIRUBIN - TOTAL 0.53 mg/dL (0.2-1.3); CALCIUM 9.7 mg/dL (8.5-10.1); CARBON DIOXIDE 31.3 mmol/L (21.0-32.0); CREATININE - SERUM 1.1 mg/dL (0.6-1.3); POTASSIUM - SERUM 3.9 mmol/L (3.5-5.1); PROTEIN - SERUM 7.6 g/dL (6.4-8.2)
[2019-08-24 13:07] VITALS: BP 109/49
--- NOTE | 2019-08-24 13:07 | NUR ---
ADMINISTERED PRE-OP MEDICATION. NO DIFFICULTIES. TOOK SCD'S AND TELEMETRY OFF. DENIES ANY NEEDS.
--- NOTE | 2019-08-24 13:30 | NUR ---
PT TO SURGERY.
--- NOTE | 2019-08-24 15:35 | NUR ---
I have reviewed this patient and I concur with the Shift Assessment completed by the Licensed Practical Nurse today this shift.
[2019-08-24 17:00] VITALS: BP 114/74
--- NOTE | 2019-08-24 17:03 | NUR ---
PT RETURNED FROM SURGERY, ALERT AND ORIENTED JUST A LITTLE GROGGY. VSS. 114/74, PULSE 115, 95% O2 ON ROOM AIR, TEMP 97.1. PT REQUESTING ICE PACK FOR SHOULDER. WILL PROVIDE PROMPTLY. DENIES ANY OTHER NEEDS. WILL CONTINUE TO ASSESS VITALS PER PROTOCOL. WILL CONTINUE TO MONITOR.
--- NOTE | 2019-08-24 18:34 | NUR ---
PT RESTING COMFORTABLY IN BED. REQUESTED I HOOK HER SCD'S BACK UP TO HER LEGS. DENIES ANY OTHER NEEDS. WILL CONTINUE TO MONITOR.
[2019-08-24 20:00] VITALS: BP 117/67
--- NOTE | 2019-08-24 20:00 | NUR ---
PT LYING IN BED RESTING WITHOUT DISTRESS, AOX4. SCDS ON. ENCOURAGED INCENTIVE SPIROMETER. PUREWICK IN PLACE. GAVE NORCO FOR PAIN 09/05. PT GOT SICK TO HER STOMACH, WHILE GIVEN ZOFRAN PT IV INFILTRATED RIGHT HAND. FLUSHED RIGHT FA IV, IT WAS INFILTRATED. REMOVED BOTH WITH CATHETERS INTACT. PT REFUSED TO HAVE ANOTHER IV ACCESS PLACED AT THIS TIME. NO IV MEDS SCHEDULED. ICE PACK GIVEN. DENIES OTHER NEEDS, WILL CTM
[2019-08-25] VITALS: BP 111/52
--- NOTE | 2019-08-25 03:00 | NUR ---
PT STATES PAIN /. NOT TIME FOR NORCO. INFORMED PT SHE HAD DEMEROL ORDERED, PT REFUSED AND STATES SHE DOES NOT WANT IV PLACED, WILL WAIT ON NORCO. TOLD PT I WOULD CALL DR TO SEE ABOUT PAIN MED AND PT STATES NO, THAT SHE CAN WAIT. LEFT ROOM AND PT CALLED ABOUT 15 MIN LATER STATING SHE COULD NOT WAIT AND WOULD TAKE AN IV. THIS NURSE WAS IN ANOTHER PT ROOM SO SECOND NURSE STARTED 22G IV RIGHT FA X1 ATTEMPT AND GAVE ORDERED DEMEROL. PT DENIED OTHER NEEDS. WILL CTM
[2019-08-25 04:00] VITALS: BP 105/58
[2019-08-25 07:19] LABS: BASOPHILS 0.1 % (0-2); EOSINOPHILS 0 % (0-7); HEMATOCRIT 41.2 % (36.0-48.0); HEMOGLOBIN 14.2 g/dL (12-16); IMMATURE GRANULOCYTES 0.2 % (0-5); LYMPHOCYTES 6.8 % (15-50); MCHC 34.5 g/dL (31.0-37.0); MONOCYTES 4.3 % (2-11); NEUTROPHILS 88.6 % (40-80); RBC 4.44 10x6/uL (4.00-5.40); RDW 13.1 % (11.5-14.5)
[2019-08-25 07:23] LABS: MCV 92.8 fL (80.0-100.0); PLATELET COUNT 372 10x3/uL (130-400); WBC 18.7 10x3/uL (4.8-10.8)
[2019-08-25 07:30] LABS: ALBUMIN 3.4 g/dL (3.4-5.0); ANION GAP 12.1 mmol/L (8-16); BILIRUBIN - TOTAL 0.37 mg/dL (0.2-1.3); CALCIUM 9.2 mg/dL (8.5-10.1); CARBON DIOXIDE 26.2 mmol/L (21.0-32.0); CREATININE - SERUM 1.2 mg/dL (0.6-1.3); POTASSIUM - SERUM 4.3 mmol/L (3.5-5.1); PROTEIN - SERUM 6.4 g/dL (6.4-8.2)
[2019-08-25 08:00] VITALS: BP 135/70
[2019-08-25 12:00] VITALS: BP 136/80
[2019-08-25 16:00] VITALS: BP 143/67
[2019-08-25 20:00] VITALS: BP 115/62
--- NOTE | 2019-08-25 21:18 | NUR ---
LYING QUIELTY WITH NO DISTRESS NOTED. RESP UNLABORED. SL TO RFA WITHOUT REDNESS OR EDEMA. DRESSING TO LUMBAR AREA INTACT WITHOUT DRAINAGE NOTED. CL LIGHT IN REACH
[2019-08-26] VITALS: BP 104/67
--- NOTE | 2019-08-26 01:24 | NUR ---
I have reviewed this patient and I concur with the Shift Assessment completed by the Licensed Practical Nurse today this shift.
[2019-08-26 04:00] VITALS: BP 111/54
[2019-08-26 06:44] LABS: BASOPHILS 0.1 % (0-2); EOSINOPHILS 0.1 % (0-7); HEMATOCRIT 41.6 % (36.0-48.0); HEMOGLOBIN 13.9 g/dL (12-16); IMMATURE GRANULOCYTES 0.2 % (0-5); LYMPHOCYTES 11.2 % (15-50); MCH 31.7 pg (26.0-34.0); MCHC 33.4 g/dL (31.0-37.0); MEAN PLATELET VOLUME 9.1 fL (7.4-10.4); MONOCYTES 8.2 % (2-11); NEUTROPHILS 80.2 % (40-80); PLATELET COUNT 329 10x3/uL (130-400); RBC 4.38 10x6/uL (4.00-5.40); RDW 13.4 % (11.5-14.5)
[2019-08-26 07:21] LABS: ALBUMIN 3.3 g/dL (3.4-5.0); ANION GAP 11.9 mmol/L (8-16); BILIRUBIN - TOTAL 0.45 mg/dL (0.2-1.3); CALCIUM 9.3 mg/dL (8.5-10.1); CARBON DIOXIDE 27.9 mmol/L (21.0-32.0); CREATININE - SERUM 1.1 mg/dL (0.6-1.3); POTASSIUM - SERUM 3.8 mmol/L (3.5-5.1); PROTEIN - SERUM 6.6 g/dL (6.4-8.2)
[2019-08-26 08:39] VITALS: BP 108/45
--- NOTE | 2019-08-26 11:30 | NUR ---
NEW DRESSING APPLIED TO BACK OF ARIC. INCISION CLEAN AND DRY. NO NEW DRAINAGE.
[2019-08-26 12:00] VITALS: BP 95/54
[2019-08-26 16:00] VITALS: BP 106/44
--- NOTE | 2019-08-26 18:21 | NUR ---
PATIENT IN BED WITH NO COMPLAINTS OR SIGNS OF DISTRESS. IV INTACT. CALLL IGHT WITHIN REACH.
[2019-08-26 20:00] VITALS: BP 102/58
[2019-08-27] VITALS: BP 100/62
[2019-08-27 04:00] VITALS: BP 95/42
--- NOTE | 2019-08-27 04:00 | NUR ---
I have reviewed this patient and I concur with the Shift Assessment completed by the Licensed Practical Nurse today this shift.
[2019-08-27 05:39] LABS: ANION GAP 11.3 mmol/L (8-16); BILIRUBIN - TOTAL 0.62 mg/dL (0.2-1.3); CALCIUM 9.1 mg/dL (8.5-10.1); POTASSIUM - SERUM 3.3 mmol/L (3.5-5.1); PROTEIN - SERUM 6.3 g/dL (6.4-8.2)
[2019-08-27 05:45] LABS: BASOPHILS 0.2 % (0-2); EOSINOPHILS 0.5 % (0-7); HEMATOCRIT 37.6 % (36.0-48.0); HEMOGLOBIN 12.8 g/dL (12-16); IMMATURE GRANULOCYTES 0.2 % (0-5); MCH 32.3 pg (26.0-34.0); MCV 94.9 fL (80.0-100.0); MEAN PLATELET VOLUME 8.9 fL (7.4-10.4); MONOCYTES 8.5 % (2-11); NEUTROPHILS 77.6 % (40-80); RBC 3.96 10x6/uL (4.00-5.40); RDW 13.3 % (11.5-14.5); WBC 12.1 10x3/uL (4.8-10.8)
[2019-08-27 05:52] LABS: PLATELET COUNT 260 10x3/uL (130-400)
[2019-08-27 08:00] VITALS: BP 104/59
[2019-08-27 12:00] VITALS: BP 116/65
--- NOTE | 2019-08-27 13:23 | NUR ---
NO UPDRAFT TX GIVEN PT VOMITING
[2019-08-27 16:00] VITALS: BP 97/56
--- NOTE | 2019-08-27 17:50 | NUR ---
PATIENT DRANK ALMOST ALL MAG CITRATE. STATED IT WAS MAKING HER FEEL SICK. ENEMA GIVEN AT THIS TIME. WILL REPEAT IF NECESSARY.
--- NOTE | 2019-08-27 18:26 | NUR ---
PATIENT HAD 2 LARGE BM'S AFTER ENEMA. STATES SHE IS STILL NAUSEATED BUT HAS A LOT LESS PRESSURE IN HER ABDOMEN. IV INTACT. CALL LIGHT WITHIN REACH.
[2019-08-27 21:01] VITALS: BP 113/68
[2019-08-28 00:21] VITALS: BP 95/49
[2019-08-28 06:10] VITALS: BP 93/61
[2019-08-28 06:20] LABS: BASOPHILS 0.1 % (0-2); HEMATOCRIT 37.4 % (36.0-48.0); HEMOGLOBIN 12.6 g/dL (12-16); IMMATURE GRANULOCYTES 0.3 % (0-5); LYMPHOCYTES 15.9 % (15-50); MCH 31.8 pg (26.0-34.0); MCHC 33.7 g/dL (31.0-37.0); MCV 94.4 fL (80.0-100.0); MEAN PLATELET VOLUME 9.7 fL (7.4-10.4); MONOCYTES 6.4 % (2-11); NEUTROPHILS 76.3 % (40-80); PLATELET COUNT 269 10x3/uL (130-400); RBC 3.96 10x6/uL (4.00-5.40); RDW 13.1 % (11.5-14.5); WBC 10.4 10x3/uL (4.8-10.8)
[2019-08-28 06:40] LABS: ALBUMIN 2.9 g/dL (3.4-5.0); ANION GAP 9.5 mmol/L (8-16); BILIRUBIN - TOTAL 0.62 mg/dL (0.2-1.3); CARBON DIOXIDE 29.5 mmol/L (21.0-32.0); PROTEIN - SERUM 6.5 g/dL (6.4-8.2)
--- NOTE | 2019-08-28 06:45 | NUR ---
I have reviewed this patient and I concur with the Shift Assessment completed by the Licensed Practical Nurse today this shift.
[2019-08-28 08:16] VITALS: BP 100/54
--- NOTE | 2019-08-28 09:05 | NUR ---
PT STATES SHE HAD A GOOD BM YESTERDAY BUT WILL TAKE MIRALAX AND COLACE TODAY. I VERBALIZED UNDERSTANDING. PT STATES SHE HAS NO FURTHER NEEDS AT THIS TIME. BED LOW. CL IN REACH. WILL CONTINUE WITH POC.
--- NOTE | 2019-08-28 10:26 | NUR ---
I have reviewed this patient and I concur with the Shift Assessment completed by the Licensed Practical Nurse today this shift.
--- NOTE | 2019-08-28 10:57 | NUR ---
Rehab Prescreening Consult recieved and the chart has been reviewed. She meets criteria for the ARU and will be accepted today if physician agrees. Discussed with the CM Mervat Stoll RN. Melissa Grady RN Clinical Liaison, Rehab
[2019-08-28 12:11] VITALS: BP 98/55
--- NOTE | 2019-08-28 13:50 | MORECARE ---
CASE MANAGEMENT DISCHARGE SUMMARY PATIENT: ARPITA MORGNA UNIT: [id number] ADM DATE: 08/22/19 AGE: 64 : 53 SEX: F ROOM/BED: D.2232 AUTHOR: TAMIKA FARRAR PHYSICIAN: REFERRING PHYSICIAN: SHAY BATISTA MD DATE OF SERVICE: 08/28/19 Discharge Plan Patient Name: ARPITA MORGAN [facility] [facility] 1955 Planned Disposition: Inpatient Rehab Anticipated Discharge Date: Discharge Date: Expected LOS: Initial Reviewer: [email or web address] Initial Review Date: 08/28/2019 Generated: 08/28/19 2:50 pm Patient Name: ARPITA MORGAN Page [phone] at 1350 All edits/amendments must be made on the electronic document DICTATION DATE: 08/28/19 1350 MODELER: LEVI 08/28/19 1350 RPT#: [id number] DC DATE: STATUS: ADM IN [facility] [address] [place] [address] END OF REPORT
--- NOTE | 2019-08-28 13:59 | MORECARE ---
CASE MANAGEMENT DISCHARGE SUMMARY PATIENT: ARPITA MORGAN UNIT: [id number] ADM DATE: 08/22/19 AGE: 64 : 53 SEX: F ROOM/BED: D.2232 AUTHOR: LENI,DOC PHYSICIAN: REFERRING PHYSICIAN: SHAY BATISTA MD DATE OF SERVICE: 08/28/19 Discharge Plan Patient Name: ARPITA MORGAN [facility] : 1955 Planned Disposition: Inpatient Rehab Anticipated Discharge Date: Discharge Date: Expected LOS: Initial Reviewer: [email or web address] Initial Review Date: 08/28/2019 Generated: 08/28/19 2:58 pm Comments DCP- Discharge Planning Updated by [email or web address]: Zonia Navarrete on 08/28/19 12:[address] Patient Name: ARPITA MORGAN Admission Status: Elective Accout number: [id number] Admission Date: 08-22-2019 : 1955 Admission Diagnosis:DORSALGIA, UNSPECIFIED Attending: RONI BATISTA Current LOS: 6 Anticipated DC Date: Planned Disposition: Inpatient Rehab Primary Insurance: MEDICARE A & B Discharge Planning Comments: CM met with patient at bedside after explaining CM role and obtaining verbal consent. CM discussed availability / needs of home health, REHAB and medical equipment. PATIENT WOULD LIKE INPATIENT REHAB AT [facility]. IMM AND ZACARIAS SIGNED. CM TO FOLLOW AND ASSIST NEEDED. Applications Engineer: Zonia Navarrete Coverage Notice Reviewer: [id number] - Zonia Navarrete Notice Issued Date-Time: 08/28/2019 13:51 Notice Type: IM Discharge Notice Notice Delivered To: Patient Relationship to Patient: Cv/Cvn Cv Tsc System Operator Name: Delivery Method: HAND - Hand Delivered Emily Days: Prior Verbal Notification: Recipient Understood Notice: Yes Recipient Signature: Yes Med Rec Note Co-signed by Attending: Coverage Notice Comment: Reviewer: [email or web address] Austin Navarrete Notice Issued Date-Time: 08/28/2019 13:51 Notice Type: Patient Choice Letter Notice Delivered To: Relationship to Patient: Cv/Cvn Cv Tsc System Operator Name: Delivery Method: HAND - Hand Delivered Emily Days: Prior Verbal Notification: Recipient Understood Notice: Yes Recipient Signature: Yes Med Rec Note Co-signed by Attending: Coverage Notice Comment: [facility] Last DP export: 08/28/19 12:50 pm Patient Name: ARPITA MORGAN Page [phone] at 1359 All edits/amendments must be made on the electronic document DICTATION DATE: 08/28/19 1350 CARPENTRY FOREMAN: LEVI 08/28/19 1357 RPT#: [id number] DC DATE: STATUS: ADM IN [facility] [address] [place] [address] END OF REPORT
[2019-08-28] MEDS ORDERED: COLACE100 MG PO (16:08)
[2019-08-28] MEDS ORDERED: MIRALAX17 GM PO (16:08)
--- NOTE | 2019-08-28 16:16 | NUR ---
REPORT CALLED TO [facility]ERS DE LA GARZA IN REHAB.
--- NOTE | 2019-08-28 16:45 | NUR ---
RIGHT FA 22G IV DC'D WITH CATH INTACT. DISCHARGE INSTRUCTIONS EXPLAINED AND GIVEN TO PT. PT HAS NO FURTHER QUESTIONS. CHART COPY SIGNED.
--- NOTE | 2019-08-28 17:00 | NUR ---
PT TAKEN TO REHAB VIA BED WITH ALL BELONGINGS.
--- NOTE | 2019-08-29 09:05 | MORECARE ---
CASE MANAGEMENT DISCHARGE SUMMARY PATIENT: ARPITA MORGAN UNIT: [id number] ADM DATE: 08/22/19 AGE: 64 : 54 SEX: F ROOM/BED: D.2232 AUTHOR: LENI,DOC PHYSICIAN: REFERRING PHYSICIAN: SHAY BATISTA MD DATE OF SERVICE: 08/29/19 Discharge Plan Patient Name: ARPITA MORGAN Facility: [facility]:[place] : 1955 Planned Disposition: Inpatient Rehab Anticipated Discharge Date: Discharge Date: 08/28/2019 Expected LOS: Initial Reviewer: [email or web address] Initial Review Date: 08/28/2019 Generated: 08/29/19 10:05 am Comments DCP- Discharge Planning Updated by [email or web address]: Zonia Navarrete on 08/28/19 12:[address] Patient Name: ARPITA MORGAN Admission Status: Elective Accout number: [id number] Admission Date: 08-22-2019 : 1955 Admission Diagnosis:DORSALGIA, UNSPECIFIED Attending: RONI BATISTA Current LOS: 6 Anticipated DC Date: Planned Disposition: Inpatient Rehab Primary Insurance: MEDICARE A & B Discharge Planning Comments: CM met with patient at bedside after explaining CM role and obtaining verbal consent. CM discussed availability / needs of home health, REHAB and medical equipment. PATIENT WOULD LIKE INPATIENT REHAB AT [facility]. IMM AND ZACARIAS SIGNED. CM TO FOLLOW AND ASSIST NEEDED. [employer] Vice Principal: Zonia Navarrete Coverage Notice Reviewer: [id number] Austin Navarrete Notice Issued Date-Time: 08/28/2019 13:51 Notice Type: IM Discharge Notice Notice Delivered To: Patient Relationship to Patient: Radio Station Operator Name: Delivery Method: HAND - Hand Delivered Emily Days: Prior Verbal Notification: Recipient Understood Notice: Yes Recipient Signature: Yes Med Rec Note Co-signed by Attending: Coverage Notice Comment: Reviewer: [id number] Austin Navarrete Notice Issued Date-Time: 08/28/2019 13:51 Notice Type: Patient Choice Letter Notice Delivered To: Relationship to Patient: Radio Station Operator Name: Delivery Method: HAND - Hand Delivered Emily Days: Prior Verbal Notification: Recipient Understood Notice: Yes Recipient Signature: Yes Med Rec Note Co-signed by Attending: Coverage Notice Comment: [facility] Last DP export: 08/28/19 12:59 pm Patient Name: ARPITA MORGAN Page [id number] at 0905 All edits/amendments must be made on the electronic document DICTATION DATE: 08/29/19904 TOOTH POLISHER: LEVI 08/29/19904 RPT#: [id number] DC DATE:08/28/19 STATUS: DIS IN [facility] [address] [place] [address] END OF REPORT
--- NOTE | 2019-08-29 10:50 | OP ---
PATIENT NAME: ARPITA MORGAN MEDICAL RECORD: [id number] :[birth year] LOCATION:D.MS [id number] ADMISSION DATE:08/22/19 SURGEON: SHAY MATA MD DATE OF OPERATION: 08/24/2019 PREOPERATIVE DIAGNOSIS: Compression fracture at T10, thoracic spinal stenosis at T10-T11. PROCEDURE: T10-T11 laminectomy and T10 kyphoplasty. SURGEON: Shay Mata MD DESCRIPTION AND TECHNIQUE: After induction of general endotracheal anesthesia, the patient was rolled prone on chest and hip rolls. The thoracic spine was prepped and draped in usual sterile fashion. Fluoroscopic x-ray and spinal needle localized the T10-T11 disc space. Following this, after infiltration of 1:100,000 epinephrine with 1% lidocaine, a skin incision was carried out from the spinous process at T10 and T11, spinous processes and lamina of T10-T11 were exposed in a subperiosteal manner on the right side. The level was confirmed with fluoroscopic x-ray and a Amite elevator. The laminectomy was carried out at T10 and T11 on the right. Hypertrophied ligamentum flavum was removed with Cloward rongeurs, the spinous processes of T10 and T11 were undermined with the Midas-Quentin drill a sublaminar decompression took place with the Midas-Quentin drill and the Cloward rongeurs to remove hypertrophied ligamentum flavum. Following this, there was excellent decompression of the dura. A Jamshidi needle was used to cannulate the pedicle at T10 on the right side under fluoroscopic control. A drill was advanced through the cannula and then a kyphoplasty balloon was inflated under fluoroscopic control. Methyl methacrylate was deposited in the cavity created by the balloon under fluoroscopic control. Following this, the retractors removed. Fascia was closed with 2-0 Vicryl suture, the subdermal layer was closed with 3-0 Vicryl suture. The skin was closed with james. A sterile dressing was applied to the wound. The patient was awakened in good condition and taken to recovery. All counts were reported as correct. Estimated blood loss was minimal. TRANSINT:[id number] Voice Confirmation ID: [id number] DOCUMENT ID: [id number] SHAY MATA MD at 1050 CC: [id number] DICTATION DATE: 08/28/19 0907 DUAL RATE DEALER: 08/28/19 1557 DIS IN 08/28/19 [facility] [address] [id number]
== END 2019-08-28 18:21 | DRG 515 ==
LOC: D.MS 13:12
PROVIDERS: Family Medicine; Neurological Surgery; ADMIT Emergency Medicine; ATTEND Emergency Medicine
PROC: 0PU43JZ Supplement Thoracic Vertebra with Synthetic Substitute, Percutaneous Approach (ICD-10-PCS; 2019-08-24)
PROC: 0PB40ZZ Excision of Thoracic Vertebra, Open Approach (ICD-10-PCS; principal; 2019-08-24 14:30)
PROC: 0PS43ZZ Reposition Thoracic Vertebra, Percutaneous Approach (ICD-10-PCS; 2019-08-24 14:30)
DX: M48.07 Spinal stenosis, lumbosacral region (principal); S34.01XA Concussion and edema of lumbar spinal cord, initial encounter; G95.20 Unspecified cord compression; G72.89 Other specified myopathies; I10 Essential (primary) hypertension; E78.5 Hyperlipidemia, unspecified; E66.9 Obesity, unspecified; Z68.34 Body mass index [BMI] 34.0-34.9, adult; Z87.891 Personal history of nicotine dependence; W19.XXXA Unspecified fall, initial encounter

== ENCOUNTER 2019-08-28 16:27 | Inpatient (IN) | payer MEDICARE, OTHER ==
[~2019-08-28] VITALS: Ht 165.1 cm; Wt 92.5 kg
[~2019-08-28 16:27] MED LIST changes: +COLACE100 MG PO; +MIRALAX17 GM PO
[2019-08-28 20:00] VITALS: BP 97/55
--- NOTE | 2019-08-28 20:00 | NUR ---
PT IS RESTING IN BED WITH EYES OPEN. ALERT AND ORIENTED X 3. DENIES ACUTE DISCOMFORT AT THIS TIME. ORIENTED TO UNIT WITH VERBAL UNDERSTANDING VOICED. ARIC ARE INTACT TO HER BACK INCISION. NO DRAINAGE NOTED. VOICED COMPLAINT OF BACK PAIN LEVEL OF 6. MEDICATED PER MAR. SR'S ARE UP X 2 IN BED. CALL LIGHT AND BEDSIDE TABLE ARE WITHIN EASY REACH.
--- NOTE | 2019-08-28 23:47 | NUR ---
PT RESTING IN BED WITH EYES CLOSED. RESPS ARE EVEN AND UNLABORED. NO ACUTE DISTRESS NOTED. PT USING BEDPAN TO VOID FREQUENTLY.
[2019-08-29 00:02] VITALS: BP 97/55; BMI 34.0
--- NOTE | 2019-08-29 03:00 | NUR ---
PT IS RESTING IN BED WITH EYES CLOSED. NO DISTRESS NOTED. ASSISTED TO USE THE BEDPAN ABOUT Q1 HR ALL NIGHT. PT VOIDING ABOUT 50-60 CC EACH TIME.
[2019-08-29 05:42] LABS: BASOPHILS 0.2 % (0-2); EOSINOPHILS 1.2 % (0-7); HEMOGLOBIN 12.5 g/dL (12-16); IMMATURE GRANULOCYTES 0.3 % (0-5); LYMPHOCYTES 19.1 % (15-50); MCHC 33.8 g/dL (31.0-37.0); MCV 94.6 fL (80.0-100.0); MEAN PLATELET VOLUME 9.2 fL (7.4-10.4); MONOCYTES 7.1 % (2-11); NEUTROPHILS 72.1 % (40-80); PLATELET COUNT 285 10x3/uL (130-400); RBC 3.91 10x6/uL (4.00-5.40); WBC 9.4 10x3/uL (4.8-10.8)
--- NOTE | 2019-08-29 05:57 | NUR ---
PT IS RESTING IN BED WITH EYES CLOSED.
[2019-08-29 06:23] LABS: ANION GAP 12.2 mmol/L (8-16); CARBON DIOXIDE 28.3 mmol/L (21.0-32.0); POTASSIUM - SERUM 3.5 mmol/L (3.5-5.1)
[2019-08-29 08:32] VITALS: BP 103/60
--- NOTE | 2019-08-29 12:07 | NUR ---
HAS BEEN UP WORKIGN WITH THERAPY. CURRENTLY SITTING IN WC IN ROOM FOR LUNCH. DENIES INREASED DISCOMFORT OR SOB. CALL LIGHT IN REACH. IN ROOM WITH PT
--- NOTE | 2019-08-29 12:23 | NUR ---
PATIENT ADMITTED TO REHAB FROM ACUTE FLOOR. DISCHARGE PLANS ARE FOR PATIENT TO RETURN HOME. PCP IS DR. MART. PATIENT HAS NO DME OR HOME HEALTH AT THIS TIME. WILL CONTINUE TO FOLLOW WITH PATIENT.
[2019-08-29 16:04] VITALS: Ht 165.1 cm; Wt 92.5 kg
--- NOTE | 2019-08-29 16:21 | NUR ---
SITTING UP IN SIDE OF BED EATING A SNACK. STATES SHE IS SLIGHTLY UNCOMFORTABLE IN LUNBAR AREA. MOTRIN GIVEN ORDERED. BED IN LOWEST POSITION, SIDE RAILS UP X2, CALL LIGHT IN REACH
--- NOTE | 2019-08-29 16:23 | NUR ---
LAYING IN BED RESTING QUIETLY. RLE HAS SOME MOVEMENT IN IT BUT SHE IS UNABLE TO BEND IT. SHE CAN LIFT IT SLIGHTLY IN BED. LLE IS WEAK ALSO BUT NOT MUCH RLE. SHE GETS ON BEDPAN NEEDED. SHE CAN ROLL SIDE/SIDE WHEN NEEDED. CALL LIGHT IN REACH, BED IN LOWEST POSITION, SIDE RAILS UP X2.
--- NOTE | 2019-08-29 19:20 | NUR ---
PT LYING IN BED WATCHING TV. CL IN REACH. DENIES NEEDS OR PAIN AT THIS TIME. BED IN LOW SIDE RAILS X2. LUNGS DIMINISHED. BOWEL ACTIVE X4. A/O X4. RESP EVEN AND UNLABORED. WILL CONTINUE TO MONITOR.
[2019-08-29 20:59] VITALS: BP 107/54
--- NOTE | 2019-08-30 00:47 | NUR ---
I have reviewed this patient and I concur with the Shift Assessment completed by the Licensed Practical Nurse today this shift.
[2019-08-30 07:20] LABS: BASOPHILS 0.1 % (0-2); EOSINOPHILS 1.6 % (0-7); HEMOGLOBIN 12.8 g/dL (12-16); IMMATURE GRANULOCYTES 0.4 % (0-5); LYMPHOCYTES 25.2 % (15-50); MCH 31.9 pg (26.0-34.0); MCHC 33.7 g/dL (31.0-37.0); MCV 94.8 fL (80.0-100.0); MONOCYTES 7.4 % (2-11); NEUTROPHILS 65.3 % (40-80); PLATELET COUNT 266 10x3/uL (130-400); RBC 4.01 10x6/uL (4.00-5.40); RDW 12.9 % (11.5-14.5)
[2019-08-30 07:36] LABS: CALCIUM 8.8 mg/dL (8.5-10.1); CARBON DIOXIDE 30.3 mmol/L (21.0-32.0); CREATININE - SERUM 0.9 mg/dL (0.6-1.3); POTASSIUM - SERUM 3.3 mmol/L (3.5-5.1)
[2019-08-30 08:00] VITALS: BP 117/48
--- NOTE | 2019-08-30 08:00 | NUR ---
SHIFT ASSMT COMPLETED.BREAKFAST GIVEN.CL IN REACH.
--- NOTE | 2019-08-30 08:00 | NUR ---
SHIFT ASSMT COMPLETED
--- NOTE | 2019-08-30 12:00 | NUR ---
LUNCH GIVEN.CL IN REACH.
--- NOTE | 2019-08-30 16:36 | NUR ---
CARE TEAM MEETING: PATIENT IS NEW TO UNIT AND WILL BE RA AT NEXT MEETING. WILL CONTINUE TO FOLLOW WITH PATIENT.
--- NOTE | 2019-08-30 19:30 | NUR ---
AWAKE AND ALERT. RESTING IN BED WITH RESPIRAITONS UNLABORED. NO DISTRESS NOTED. CALL LIGHT IN REACH.
[2019-08-30 23:05] VITALS: BP 129/51
--- NOTE | 2019-08-31 02:04 | NUR ---
SLEEPIGN WITH RESPIRATIONS UNLABORED. NO DISTRESS NOTED.
--- NOTE | 2019-08-31 05:09 | NUR ---
QUIET HOURS. NO ACUTE CHANGES IN CONDITION THIS SHIFT. RESTING IN BED WITH NO DISTRESS NOTED.
[2019-08-31 08:00] VITALS: BP 110/69
--- NOTE | 2019-08-31 19:16 | NUR ---
AWAKE AND ALERT. RESTING IN BED WITH RESPIRAITONS UNLABORED. NO ACUTE DISTRESS NOTED. CALL LIGHT IN REACH.
[2019-08-31 21:53] VITALS: BP 111/52
--- NOTE | 2019-09-01 00:31 | NUR ---
SLEEPING WITH RESPIRAITONS UNLABORED. NO DISTRESS NOTED. CALL LIGHT IN REACH.
--- NOTE | 2019-09-01 05:12 | NUR ---
QUIET HOURS. NO ACUTE CHANGES IN CONDITION THIS SHIFT. RESTING IN BED WITH NO DISTRESS NOTED.
[2019-09-01 08:00] VITALS: BP 118/51
[2019-09-01 08:34] LABS: BASOPHILS 0.3 % (0-2); EOSINOPHILS 1.5 % (0-7); HEMATOCRIT 37.3 % (36.0-48.0); HEMOGLOBIN 12.5 g/dL (12-16); IMMATURE GRANULOCYTES 0.3 % (0-5); LYMPHOCYTES 23.2 % (15-50); MCH 31.8 pg (26.0-34.0); MCHC 33.5 g/dL (31.0-37.0); MCV 94.9 fL (80.0-100.0); MONOCYTES 7.3 % (2-11); NEUTROPHILS 67.4 % (40-80); RBC 3.93 10x6/uL (4.00-5.40); WBC 7.2 10x3/uL (4.8-10.8)
[2019-09-01 08:38] LABS: ANION GAP 10.1 mmol/L (8-16); CALCIUM 9.3 mg/dL (8.5-10.1); CREATININE - SERUM 1.1 mg/dL (0.6-1.3); POTASSIUM - SERUM 3.1 mmol/L (3.5-5.1)
[2019-09-01 08:43] LABS: PLATELET COUNT 369 10x3/uL (130-400)
--- NOTE | 2019-09-01 08:54 | RHP ---
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 HISTORY OF PRESENT ILLNESS: The patient is a 64-year-old obese female who had acute disuse myopathy. She was a direct admit for Dr. Mata's office with severe lower back pain and loss of ADLs. She had a recent kyphoplasty and had a preop right leg weakness. She had a repeat fall, recurrent right lower extremity weakness and back pain. She was unable to get around without standby assist. She requires 80% assist for transfers. She had gross deficits noted. The patient saw Dr. Mata. He was consulted for a T10 kyphoplasty and T10-T11 laminectomy. The patient went to the OR for thoracic laminectomy and kyphoplasty to those compression fractures and spinal stenosis. Postop, she did have some sinus tachycardia, nausea, vomiting, electrolyte abnormalities. The patient has had prolonged immobility, progressive generalized weakness, foot drop on the right. She is very fatigued with any type of exercise at this time. She is mod to max assist for ADLs and mod to max assist for sit to stand and bed to chair. She is highly motivated and has good family support to return back home, would definitely require inpatient rehab to get back to that prior level of function. COMORBIDITIES: Include chronic back pain, COPD, essential hypertension, falls, hyponatremia, electrolyte abnormalities and incontinence. She has also got a history of compression deformity to her back, disuse myopathy, hyperlipidemia, COPD, obesity and former tobacco use. ALLERGIES: PENICILLIN, CODEINE, MORPHINE, BENADRYL, CELEBREX, MILK AND ORANGE JUICE. PAST MEDICAL HISTORY: Significant for COPD, obesity, hyperlipidemia, hypertension, fatigue, tobacco use. PAST SURGICAL HISTORY: Includes shoulder surgery. She has had adenoidectomy, hysterectomy. CURRENT MEDICATIONS: Include potassium 99 mg daily; she is on Os-Hector with D daily, she is on Ziac 2.5/6.25, she takes 2 daily; she is on Lipitor 10 mg daily; Protonix 40 mg daily; Mucinex D 1 tab b.i.d.; Colace 100 mg b.i.d.; she is on DuoNeb updrafts; she is on [place] 10/325 one tab every 6 hours p.r.n., and Ventolin updrafts. HABITS: Does not use tobacco at this time, but has used in the past. FAMILY HISTORY: Noncontributory. SOCIAL HISTORY: The patient hopes to return back home and get back to her prior level of functioning. REVIEW OF SYSTEMS: GENERAL: Does complain of some weakness and fatigue. HEENT: Denies cold, cough, or congestion. HISTORY AND PHYSICAL [id number] ARPITA MORGAN CARDIOVASCULAR: Denies any chest pain. PHYSICAL EXAMINATION: VITAL SIGNS: Stable, afebrile. GENERAL: A somewhat obese female, in no distress upon exam. HEENT: Normocephalic and atraumatic. Mucosa moist. NECK: Supple. No lymphadenopathy. LUNGS: Clear in upper nieves. No wheezing, rhonchi or rales. HEART: Regular rate and rhythm. No murmurs, rubs or gallops. ABDOMEN: Soft, benign, and nondistended. Positive bowel sounds times 4. EXTREMITIES: No clubbing, cyanosis or edema. NEUROLOGIC: She does have noted weakness, especially in her lower extremities. LABORATORY DATA: Her white count is 9.4, H&H of 12 and 37, and platelet count was noted to be 285. Her sodium is 130, potassium 3.5, BUN and creatinine of 12 and 1.0 and blood sugar is noted to be 95. ASSESSMENT: A 64-year-old female patient admitted to rehab with a working diagnosis of disuse atrophy secondary to recent falls and compression fractures. The patient has potential to make improvement. We instituted the following multidisciplinary therapies include, but not limited to physical, occupational, respiratory, speech, nutritional services, prosthetics and orthotics. Given her complex medical condition and risks for more complications, rehabilitation services cannot be provided at a low level of care such as custodial facility. PLAN: 1. Admit to [facility] for intensive inpatient therapy to include the following disciplines; A. Physical therapy to improve gait, all transfer skills and bed mobility to a modified independent level. B. Occupational therapy to improve activities of daily living. C. Case management to assist with discharge planning and placement options. D. Nutrition to assist with nutritional needs. E. Rehabilitation nursing to assist in monitoring the patient's underlying medical conditions and to assist with any type of bowel or bladder management. 2. The patient's current medication and medical care will be continued. 3. We will monitor her pain as this issue becomes more prevalent. 4. Will hopefully get back home soon and I will see again in the a.m. TRANSINT:[id number] Voice Confirmation ID: [id number] DOCUMENT ID: [id number] CANDY notes whether there has been none or any medical/functional change since admission: - No change since preadmission screen. CANDY attests patient continues to be appropriate for IRF: - Continues to be appropriate. HISTORY AND PHYSICAL [id number] ARPITA MORGAN,SHAY TAMAYO MD at 0854 CC: [id number] DICTATION DATE: 08/29/19 0859 SOW FARM TECHNICIAN: 08/29/19 1213 ADM IN [facility] [address] [id number]
--- NOTE | 2019-09-01 10:26 | NUR ---
SITTING IN WC IN THERAPY ROOM
--- NOTE | 2019-09-01 15:08 | NUR ---
Nutrition Follow-up: Diet: Cardiac + Ensure with meals PO intake: none recorded. Previously 0-100% while in acute care. Patient was OOR at time of RD visit. Last BM: none recorded since admit. WT: 204# (08/29/19), no new wt Meds reviewed. Labs noted: Na 132(L), K 3.1(L), Glu 107(H) Recommend continue current diet. Encourage PO intake. Continue oral nutrition supplements and encourage intake. RD following.
--- NOTE | 2019-09-01 15:40 | NUR ---
LAYING IN BED RESTING QUIETLY. HAS TO VOID OFTEN. PT IS NOT SUPPOSED TO USE BEDPAN BUT TO GET UP AND USE TOILET. RLE STILL VERY WEAK
--- NOTE | 2019-09-01 19:16 | NUR ---
AWAKE AND ALERT. RESTING IN BED WITH RESPIRAITONS UNLABORED. PT STATES SHE DOESNT KNOW ABOUT GETTING OUT OF BED TO WHEELCHAIR TO GO TO BATHROOM. I EXPLAINED THAT PHYSICAL THERAPY HAD STATED SHE SHOULD NOT USE THE BEDPAN BUT GET OUT OF BED INTO WHEELCHAIR TO GO TO BATHROOM. SHE SAID "YEAH I KNOW" BUT IT WAS HARD LAST TIME I DID IT". I ASSURED HER WE WOULD HELP HER WITH HER TRANSFER TO AND FROM BED AND TOILET.
[2019-09-01 19:37] VITALS: BP 123/63
--- NOTE | 2019-09-02 00:47 | NUR ---
ASSISTED TO BATHROOM AND BACK TO BED. DID WELL WITH MODERATE ASSISTANCE.
--- NOTE | 2019-09-02 05:19 | NUR ---
RESTING IN BED. NO ACUTE CHANGES IN CONDITION THIS SHIFT. RESPIRAITONS UNLABORED.
[2019-09-02 08:00] VITALS: BP 108/61
--- NOTE | 2019-09-02 10:00 | NUR ---
PAIN MEDS JUST GIVEN PER PT REQUEST. SHE CAN TRANSFER SELF MOST OF TIME TO FROM BED AND TOILET. OCCASIONAL MIN ASST REQUIRED. IS CONT OF B/B. DECLINED BACK BRACE WHEN TRANSFERING. CALL LIGHT IN REACH, SIDE RAILS UP X2, BED IN LOWEST POSITION.
--- NOTE | 2019-09-02 18:34 | NUR ---
HAS BEEN AWAKE MOST OF DAY. WORKED WITH THERAPY THEN BACK TO BED. TRANSFERS HERSELF MOST OF TIME. OCCASIONALLY NEED MIN ASST. DENIES INCREASED PAIN BUT STILL HAS SOME PAIN TO BACK. PAIN MEDS GIVEN ORDERED. CALL LIGHTIN REACH PT IS CURRENTLY LAYING IN BED WATCHING TV. BED IN LOWEST POSITION. SIDE RAILS UP X2.
--- NOTE | 2019-09-02 18:50 | NUR ---
BEDSIDE REPORT COMPLETE. PT LYING IN BED SUPINE. ALERT AND ORIENTED X4. DENIES ANY PAIN. REQUESTS ICE PACK FOR LOWER BACK. DRESSING TO LOW/MID BACK INTACT. DENIES ANY NEEDS OR PAIN. NO SIGNS OF ACUTE DISTRESS NOTED. CALL LIGHT WITHIN REACH. BED ALARM WAIVER ON FILE. CPOC
[2019-09-02 20:00] VITALS: BP 118/64
--- NOTE | 2019-09-03 00:27 | NUR ---
PT LYING IN BED ON RIGHT SIDE EYES CLOSED RESTING. RR EVEN AND UNLABORED. CALL LIGHT WITHIN REACH. FALL PRECAUTIONS IN PLACE. CPOC
--- NOTE | 2019-09-03 02:10 | NUR ---
ASSISTED PT TO RESTROOM AND BACK TO BED WITH MOD ASSIST. DENIES ANY OTHER NEEDS OR PAIN. NO SIGNS OF ACUTE DISTRESS NOTED. CALL LIGHT WITHIN REACH. FALL PRECAUTIONS IN PLACE. CPOC
--- NOTE | 2019-09-03 02:45 | NUR ---
ASSISTED PT WITH SHOWER, PT WAS ABLE TO WASH ALL BODY PARTS WITHOUT ASSISTANCE EXPECT LOWER EXTREMITIES. COMPLETE LINEN CHANGED DONE. ASSISTED PT WITH TRANSFER FROM W/C TO BED WITH MOD ASSIST. DENIES ANY OTHER NEEDS OR PAIN. CALL LIGHT WITHIN REACH. FALL PRECAUTIONS IN PLACE. CPOC
--- NOTE | 2019-09-03 05:09 | NUR ---
ASSISTED PT TO RESTROOM AND BACK TO BED WITH MOD ASSIST. DENIES ANY OTHER NEEDS. CALL LIGHT WITHIN REACH. FALL PRECAUTIONS IN PLACE. CPOC
--- NOTE | 2019-09-03 06:22 | NUR ---
ASSISTED PT TO RESTROOM AND BACK TO BED WITH MOD ASSIST. NO OTHER NEEDS OR CONCERNS VOICED. CALL LIGHT WITHIN REACH. FALL PRECAUTIONS IN PLACE. CPOC
[2019-09-03 08:00] VITALS: BP 113/46
--- NOTE | 2019-09-03 12:06 | NUR ---
RESTING QUIETLY IN BED. HAS BEEN UP AND DOWN FROM BED TO TO BATHROOM SEVERAL TIMES THIS MORNING. SHE WAS TRANSFERING FROM TO TOILET AND WAS TALKING TO HER LEGS...."OK LEGS LETS DO THIS, DON'T LET ME DOWN"....WHEN SHE STARTED TO TRANSFER SHE SAID "MY LEG WON'T HOLD ME UP! AND NURSE PULLED HER BACK IN WC TO PREVENT A FALL. NOW PT SAYS SHE IS NOT GETTING OUT OF BED AGAIN.....SPOKE WITH AND HE STATES BOTH OF HIS SHOULDERS ARE "BLOWN OUT" FROM HELPING PATIENT FOR LAST 3-4 MONTHS AT HOME AND HE CAN NO LONGER LIFT, TUG OR PULL ON PT. BOTH PT AND STATED THEY DO NOT HAVE A PLAN FOR DC OTHER THAN HOME BUT SINCE HER CAN NO LONGER HELP HER....WILL PASS INFO ON TO ERASTO COLÓN, REIMBURSEMENT MANAGER.
--- NOTE | 2019-09-03 13:11 | NUR ---
LAYING QUIETLY IN BED. INCONT BRIEF IN USE. CALL LIGHT IN REACH
--- NOTE | 2019-09-03 18:45 | NUR ---
BEDSIDE REPORT COMPLETE. PT LYING IN BED VISTING WITH . ALERT AND ORIENTED X4. DENIES ANY NEEDS. C/O 3/10 LOWER BACK AND LEG PAIN ACHING. NO SIGNS OF ACUTE DISTRESS NOTED. CALL LIGHT WITHIN REACH. FALL PRECAUTIONS IN PLACE. CPOC
[2019-09-03 20:29] VITALS: BP 107/52
--- NOTE | 2019-09-03 22:33 | NUR ---
PT LYING IN BED ON RIGHT SIDE EYES CLOSED RESTING. RR EVEN AND UNLABORED. CALL LIGHT WITHIN REACH. FALL PRECAUTIONS IN PLACE. WILL CONTINUE TO MONITOR
--- NOTE | 2019-09-03 23:45 | NUR ---
ASSISTED PT TO RESTROOM AND BACK TO BED WITH MOD ASSIST. CALL LIGHT WITHIN REACH. FALL PRECAUTIONS IN PLACE. CPOC
--- NOTE | 2019-09-04 02:35 | NUR ---
ASSISTED PT TO RESTROOM AND BACK TO BED WITH MOD ASSIST. DENIES ANY OTHER NEEDS OR PAIN. CALL LIGHT WITHIN REACH. FALL PRECAUTIONS IN PLACE. CPOC
[2019-09-04 07:03] LABS: BASOPHILS 0.3 % (0-2); EOSINOPHILS 1.6 % (0-7); HEMATOCRIT 35.9 % (36.0-48.0); IMMATURE GRANULOCYTES 0.3 % (0-5); LYMPHOCYTES 27.4 % (15-50); MCH 31.7 pg (26.0-34.0); MCHC 33.4 g/dL (31.0-37.0); MONOCYTES 9.2 % (2-11); NEUTROPHILS 61.2 % (40-80); PLATELET COUNT 367 10x3/uL (130-400); RBC 3.78 10x6/uL (4.00-5.40); RDW 13.2 % (11.5-14.5)
[2019-09-04 07:13] LABS: ANION GAP 9.1 mmol/L (8-16); CALCIUM 9.2 mg/dL (8.5-10.1); CARBON DIOXIDE 28.3 mmol/L (21.0-32.0); POTASSIUM - SERUM 3.4 mmol/L (3.5-5.1)
[2019-09-04 08:00] VITALS: BP 120/64
--- NOTE | 2019-09-04 15:18 | NUR ---
RESTING QUIETLY IN BED. CAN DRESS SELF IN BED AND HAS BEEN UP GOING TO BATHROOM WITH ASST ALL DAY. DENIES INCREASED PAIN
--- NOTE | 2019-09-04 19:30 | NUR ---
AWAKE AND ALERT. RESTING IN BED WITH RESPIRATIONS UNLABORED. NO ACUTE DISTRESS NOTED. CALL LIGHT IN REACH.
--- NOTE | 2019-09-04 20:02 | NUR ---
MEDICATED FOR PAIN. SEE MAR.
[2019-09-04 21:26] VITALS: BP 135/60
--- NOTE | 2019-09-04 21:48 | NUR ---
MEDICATED FOR C/O PAIN. SEE MAR.
--- NOTE | 2019-09-05 01:06 | NUR ---
ASSISTED TO BATHROOM AND BACK TO BED. RESPIRATIONS UNLABORED. CALL LIGHT IN REACH.
--- NOTE | 2019-09-05 05:09 | NUR ---
NO ACUTE CHANGES IN CONDITION THIS SHIFT. HAS SLEPT IN SHORT INTERVALS. UP TO VOID SEVERAL TIMES. NO ACUTE DISTRESS NOTED.
[2019-09-05 08:00] VITALS: BP 126/61
--- NOTE | 2019-09-05 10:57 | NUR ---
ASSIST UP MIN ASSIST TO WC AND TO RESTROOM. LOWER EXTREM WEAKNESS BIALT. UP IN ROOM FOR BREAKFAST
--- NOTE | 2019-09-05 13:36 | NUR ---
RESTING QUIETLY IN BED.DENIES NEEDS.DRESSING TO LUMBAR AREA INTACT ,CLEAN AND DRY.CL IN EASY REACH,BED IN LOW POSITION.HAS SIGNED BED ALARM WAIVER.
--- NOTE | 2019-09-05 14:16 | NUR ---
Nutrition Follow-up: Diet: Cardiac + Ensure with meals PO intake: none recorded but patient had eaten about 50% of lunch tray and states that she typically eated about 50% of meals and this appetite is normal. She is not drinking Ensure and request that I remove it from trays. Last BM: 09/04/19. WT: 204# (08/29/19) Meds and labs reviewed Recommend continue current diet. Encouraged PO intake. Will remove Ensure from diet order. RD following.
--- NOTE | 2019-09-05 15:39 | NUR ---
HYDROCODONE 10MG PO GIVEN FOR INCISIONAL BACK PAIN.STATES"THE STAPELS ARE PULLING AND THE BACK IS THROBBING.
--- NOTE | 2019-09-05 19:14 | NUR ---
AWAKE AND ALERT. RESPIRATIONS UNLABORED. ASSISTED TO BATHROOM AND BACK TO BED. NO DISTRESS NOTED. DRESSING DRY AND INTACT TO BACK.
[2019-09-05 21:18] VITALS: BP 125/67
--- NOTE | 2019-09-05 23:58 | NUR ---
SLEEPING WITH RESPIRATIONS UNLABORED. NO DISTRESS NOTED.
--- NOTE | 2019-09-06 04:58 | NUR ---
NO ACUTE CHANGES IN CONDITION THIS SHIFT. UP FREQUENTLY TO BATHROOM. NOW RESTING IN BED WITH NO DISTRESS NOTED.
[2019-09-06 06:47] LABS: BASOPHILS 0.3 % (0-2); EOSINOPHILS 1.2 % (0-7); HEMATOCRIT 37.2 % (36.0-48.0); HEMOGLOBIN 12.3 g/dL (12-16); IMMATURE GRANULOCYTES 0.5 % (0-5); MCH 31.7 pg (26.0-34.0); MCHC 33.1 g/dL (31.0-37.0); MCV 95.9 fL (80.0-100.0); MONOCYTES 7.2 % (2-11); NEUTROPHILS 66.8 % (40-80); PLATELET COUNT 360 10x3/uL (130-400); RBC 3.88 10x6/uL (4.00-5.40); RDW 13.1 % (11.5-14.5); WBC 6.7 10x3/uL (4.8-10.8)
[2019-09-06 06:55] LABS: ANION GAP 11.9 mmol/L (8-16); CALCIUM 9.2 mg/dL (8.5-10.1); CARBON DIOXIDE 28.5 mmol/L (21.0-32.0); CREATININE - SERUM 0.9 mg/dL (0.6-1.3)
[2019-09-06 06:57] LABS: POTASSIUM - SERUM 4.4 mmol/L (3.5-5.1)
[2019-09-06 08:00] VITALS: BP 130/60
--- NOTE | 2019-09-06 18:55 | NUR ---
BEDSIDE REPORT COMPLETE. PT LYING IN BED SUPINE. ALERT AND ORIENTED X4. DENIES ANY NEEDS OR PAIN. LOWER BACK INCISION DRESSING INTACT. NO SIGNS OF ACUTE DISTRESS NOTED. CALL LIGHT WITHIN REACH. BED WAIVER ON FILE. CPOC
--- NOTE | 2019-09-06 20:00 | NUR ---
PT REFUSED SHOWER.
[2019-09-06 21:10] VITALS: BP 105/55
--- NOTE | 2019-09-06 23:05 | NUR ---
PT LYING IN BED ON RIGHT SIDE EYES CLOSED RESTING. RR EVEN AND UNLABORED. CALL LIGHT WITHIN REACH. FALL PRECAUTIONS IN PLACE. WILL CONTINUE TO MONITOR
--- NOTE | 2019-09-07 02:15 | NUR ---
ASSISTED PT TO RESTROOM AND BACK TO BED WITH SBA. PT DENIES ANY NEEDS. C/O MILD DISCOMFORT IN MID/LOWER BACK. ICE PACK PROVIDED. CALL LIGHT WITHIN REACH. FALL PRECAUTIONS IN PLACE. WILL CONTINUE TO MONITOR
--- NOTE | 2019-09-07 05:40 | NUR ---
ASSISTED PT TO RESTROOM AND BACK TO BED WITH SBA. DENIES ANY OTHER NEEDS. C/O MILD DISCOMFORT IN MED/LOWER BACK PULLING AT ARIC. CALL LIGHT WITHIN REACH. FALL PRECAUTIONS IN PLACE. WILL CONTINUE TO MONITOR
[2019-09-07 08:00] VITALS: BP 103/57
--- NOTE | 2019-09-07 15:19 | NUR ---
LAYING ON RT SIDE IN BED, EYES CLOSED, NO RESP DISTRESS NOTED. CALL LIGHT IN REACH, SIDE RAILS UP X2 BED IN LOWEST POSITION.
--- NOTE | 2019-09-07 18:52 | NUR ---
BEDSIDE REPORT COMPLETE. PT LYING IN BED ON RIGHT SIDE EYES CLOSED RESTING. EASILY AROUSED WITH VERBAL STIMULI. ALERT AND ORIENTED X4. DENIES ANY NEEDS OR PAIN. NO SIGNS OF ACUTE DISTRESS NOTED. BACK INCISION MIKAYLA WITHOUT REDNESS OR SWELLING. CALL LIGHT WITHIN REACH. FALL PRECAUTIONS IN PLACE. CPOC
[2019-09-07 19:00] VITALS: BP 107/58
--- NOTE | 2019-09-08 00:07 | NUR ---
PT LYING IN BED ON RIGHT SIDE EYES CLOSED RESTING QUIETLY. RR EVEN AND UNLABORED. CALL LIGHT WITHIN REACH. FALL PRECAUTIONS IN PLACE. WILL CONTINUE TO MONITOR
--- NOTE | 2019-09-08 04:35 | NUR ---
PT LYING IN BED ON RIGHT SIDE EYES CLOSED RESTING. RR EVEN AND UNLABORED. CALL LIGHT WITHIN REACH. FALL PRECAUTIONS IN PLACE. WILL CONTINUE TO MONITOR
[2019-09-08 05:17] LABS: BASOPHILS 0.2 % (0-2); HEMATOCRIT 38.6 % (36.0-48.0); HEMOGLOBIN 12.6 g/dL (12-16); IMMATURE GRANULOCYTES 0.2 % (0-5); LYMPHOCYTES 22.5 % (15-50); MCH 31.2 pg (26.0-34.0); MCHC 32.6 g/dL (31.0-37.0); MCV 95.5 fL (80.0-100.0); MONOCYTES 6.3 % (2-11); NEUTROPHILS 69.8 % (40-80); PLATELET COUNT 376 10x3/uL (130-400); RBC 4.04 10x6/uL (4.00-5.40)
[2019-09-08 05:19] LABS: WBC 8.4 10x3/uL (4.8-10.8)
[2019-09-08 05:54] LABS: ANION GAP 10.6 mmol/L (8-16); CALCIUM 8.9 mg/dL (8.5-10.1); CREATININE - SERUM 1.1 mg/dL (0.6-1.3); POTASSIUM - SERUM 3.6 mmol/L (3.5-5.1)
[2019-09-08 07:49] VITALS: BP 107/55
--- NOTE | 2019-09-08 15:28 | NUR ---
CARE TEAM MEETING 09/06/19: PATIENT IS DOING WELL IN THERAPY. [place] DISCHARGE DATE IS 09/12/19. WILL CONTINUE TO FOLLOW WITH PATIENT.
--- NOTE | 2019-09-08 16:42 | NUR ---
RESTING QUIETLY ON RT SIDE. CALL LIGHT IN REACH. BED IN LOWEST POSITION. SIDE RAILS UP X2.
--- NOTE | 2019-09-08 19:54 | NUR ---
AWAKE AND ALERT. ASSISTED TO BATHROOM AND BACK TO BED. NO DISTRESS NOTED. CALL LIGHT IN REACH.
[2019-09-08 20:00] VITALS: BP 107/47
--- NOTE | 2019-09-09 01:38 | NUR ---
SLEEPING WITH RESPIRATIONS UNLABORED. NO DISTRESS NOTED. CALL LIGHT IN REACH.
--- NOTE | 2019-09-09 03:00 | NUR ---
RESTING IN BED WITH EYES CLOSED AND RESPIRATIONS UNLABORED.
--- NOTE | 2019-09-09 06:02 | NUR ---
ASSISTED TO BATHROOM. UP TO BATHROOM 11 TIMES THIS SHIFT. STATES SHE VOIDS EVERY HOUR "FOR YEARS" NO ACUTE DISTRESS NOTED.
--- NOTE | 2019-09-09 07:20 | NUR ---
POSITIONED ON RIGHT SIDE WITH EYES CLOSED. RESP EVEN AND UNLABORED WITH NO VISIBLE DISTRESS NOTED. SIDERAILS UP X 2, CALL LIGHT IN REACH AND BED IN LOW LOCKED POSITION. NO APPARENT PAIN OR PROBLEMS NOTED.
[2019-09-09 08:15] VITALS: BP 100/52
--- NOTE | 2019-09-09 14:36 | NUR ---
I have reviewed this patient and I concur with the Shift Assessment completed by the Licensed Practical Nurse today this shift.
--- NOTE | 2019-09-09 17:30 | NUR ---
SITTING UP ON SIDE OF BED EATING SUPPER AND VISITING WITH . NO REQUESTS.
[2019-09-09 19:34] VITALS: BP 111/55
--- NOTE | 2019-09-09 19:47 | NUR ---
AWAKE AND ALERT. RESPIRATIONS UNLABORED. ASSISTED TO BATHROOM AND BACK TO BED. DRESSING TO BACK DRY AND INTACT. NO ACUTE DISTRESS NOTED. CALL LIGHT IN REACH.
--- NOTE | 2019-09-10 00:56 | NUR ---
ASSISTED TO BATHROOM AND BACK TO BED. NO DISTRESS NOTED.
--- NOTE | 2019-09-10 05:14 | NUR ---
SHOWER GIVEN. MEDICATED FOR PAIN EARLIER AND PAIN RELIEVED. RESPIRATIONS UNLABORED. NO ACUTE CHANGES IN CONDITION THIS SHIFT.
[2019-09-10 08:15] VITALS: BP 115/45
--- NOTE | 2019-09-10 15:00 | NUR ---
I have reviewed this patient and I concur with the Shift Assessment completed by the Licensed Practical Nurse today this shift.
--- NOTE | 2019-09-10 15:09 | NUR ---
ASSISTED UP TO BR VIA W/C. BANDAGE TO INCISION ON BACK CHANGED. WOUND LOOKS GOOD AND HEALED WITHOUT DRAINAGE NOTED.
[2019-09-10 19:26] VITALS: BP 107/42
--- NOTE | 2019-09-10 19:35 | NUR ---
AWAKE AND ALERT. RESPIRAITONS UNLABORED. ASSISTED TO BATHROOM AND BACK TO BED. MEDICATED FOR PAIN. SEE MAR. NO ACUTE DISTRESS NOTED.
--- NOTE | 2019-09-11 00:15 | NUR ---
SLEEPING WITH NO DISTRESS NOTED.
--- NOTE | 2019-09-11 05:10 | NUR ---
NO ACUTE CHANGES IN CONDITION THIS SHIFT. UP X 10 TO VOID THIS SHIFT. RESPIRAITONS UNLABORED.
[2019-09-11] MEDS ORDERED: HYDROCODON-ACE1 EA10 PO (07:38)
[2019-09-11 08:00] VITALS: BP 125/58
--- NOTE | 2019-09-11 11:40 | NUR ---
AFTER SPEAKING WITH PATIENT AT THIS TIME SHE FEELS THAT SHE IS UNABLE TO SAFELY DISCHARGE HOME AT THIS TIME AND WOULD LIKE TO DISCHARGE TO A SNF CLOSE TO HOME. A REFERRAL HAS BEEN FAXED TO [facility]. WILL CONTINUE TO FOLLOW WITH PATIENT.
--- NOTE | 2019-09-11 15:26 | NUR ---
Nutrition Follow-up: Diet: Cardiac PO intake: ~50% average x last 6 meals; reports normal appetite. She does not want to try Boost. Does not like Ensure. States that she is going home tomorrow. Last BM: 09/05/19. WT: 204# (08/29/19) Meds and labs reviewed. Recommend continue current diet. RD following.
--- NOTE | 2019-09-11 16:05 | NUR ---
RESTING QUIETLY IN BED. CALL LIGHT IN REACH. SIDE RAILS UP X2. RECENTLY GAVE PT A PAIN MED AT HER REQUEST FOR C/O BACK PAIN.
--- NOTE | 2019-09-11 18:55 | NUR ---
BEDSIDE REPORT COMPLETE. PT LYING IN BED ON RIGHT SIDE EYES CLOSED RESTING QUIETLY. RR EVEN AND UNLABORED. CALL LIGHT WITHIN REACH. FALL PRECAUTIONS IN PLACE. CPOC
[2019-09-11 21:45] VITALS: BP 97/42
--- NOTE | 2019-09-11 23:12 | NUR ---
PT LYING IN BED ON RIGHT SIDE EYES CLOSED RESTING. RR EVEN AND UNLABORED. CALL LIGHT WITHIN REACH. FALL PRECAUTIONS IN PLACE. WILL CONTINUE TO MONITOR
--- NOTE | 2019-09-12 01:29 | NUR ---
PT LYING IN ON RIGHT SIDE EYES CLOSED RESTING QUIETLY. RR EVEN AND UNLABORED. CALL LIGHT WITHIN REACH. FALL PRECAUTIONS IN PLACE. CPOC
--- NOTE | 2019-09-12 04:06 | NUR ---
PT LYING IN BED ON RIGHT SIDE EYES CLOSED RESTING QUIETLY. RR EVEN AND UNLABORED. CALL LIGHT WITHIN REACH. FALL PRECAUTIONS IN PLACE. CPOC
--- NOTE | 2019-09-12 06:08 | NUR ---
PT LYING IN BED ON RIGHT SIDE EYES CLOSED RESTING. RR EVEN AND UNLABORED. CALL LIGHT WITHIN REACH. FALL PRECAUTIONS IN PLACE. CPOC
[2019-09-12 08:00] VITALS: BP 104/42
--- NOTE | 2019-09-12 10:19 | NUR ---
HAS BEEN OUT IN [place] IN ROLLING AROUND TALKING TO STAFF. IS DC'ING TODAY. DENIES NEEDS OR C/O. WITH PT
--- NOTE | 2019-09-12 13:34 | NUR ---
RESTING QUIETLY IN BED, LAYING ON RT SIDE. IN ROOM WITH PT. THEY ARE WAITING ON DC INSTRUCTIONS AND DC PAPERWORK. DENIES NEEDS OR C/O
--- NOTE | 2019-09-12 13:55 | NUR ---
PATIENT HAS BEEN ACCPETED TO [facility]. NO HOME HEALTH OR DME NEEDED AT THIS TIME. AN APPOINTMENT WITH DR. NETTLES AND DR. SKELTON WILL BE MADE AT TIME OF DISCHARGE FROM THE FACILITY. ZACARIAS SIGNED , IMM SERVED AND EXPLAINED. COMPARE DATA REVIEWED WITH PATIENT AND SHE VOICED UNDERSTANDING. DISCHARGE INSTRUCTIONS FAXED TO PCP, SNF AND REVIEWED WITH PATIENT PER PRIMARY NURSE.
--- NOTE | 2019-09-12 15:09 | NUR ---
DC TO [facility] WITH ALL PERSONAL BELONGINGS. REPORT CALLED TO FREDA PARKER CT. SEND SCRIPT FOR PAIN MEDS WITH DC PAPERS. WITH PT. 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 LEFT IN .
== END 2019-09-12 15:18 | DRG 558 ==
LOC: D.REHAB 16:27
PROVIDERS: ADMIT Emergency Medicine; ATTEND Emergency Medicine
DX: M62.50 Muscle wasting and atrophy, not elsewhere classified, unspecified site (principal); E87.1 Hypo-osmolality and hyponatremia; F17.203 Nicotine dependence unspecified, with withdrawal; J44.9 Chronic obstructive pulmonary disease, unspecified; I10 Essential (primary) hypertension; E87.8 Other disorders of electrolyte and fluid balance, not elsewhere classified; R32 Unspecified urinary incontinence; E78.5 Hyperlipidemia, unspecified; E66.9 Obesity, unspecified; G72.89 Other specified myopathies; R53.1 Weakness; R11.2 Nausea with vomiting, unspecified; R00.0 Tachycardia, unspecified; R53.83 Other fatigue; G89.29 Other chronic pain; E87.6 Hypokalemia